=== PATIENT | female | born 1955 | race Caucasian/White ===

== ENCOUNTER 2016-08-12 02:45 | Emergency (ER) | payer MEDICARE ==
[2016-08-12 02:45] VITALS: RESP 18; O2SAT 98
[~2016-08-12 02:45] MED LIST: EXCETAB PO; PROC10TA4 PO; SLEETAB2
[2016-08-12 03:01] VITALS: BP 188/93; PULSE 73; RESP 18; TEMP 97.9; O2SAT 98
[2016-08-12] MEDS ORDERED: SODIUM CHLOR 0.9% 1000 ML INJ 1,000 ML IV SCH (03:24)
[2016-08-12] MEDS ORDERED: KETOROLAC TROMETHAMINE 30 MG/ML (IVP) VIAL IV PUSH ONE (03:30)
[2016-08-12] MEDS ORDERED: SODIUM CHLORIDE 0.9% FLUSH 10 ML FLUSH IV FLUSH PRN (03:30)
[2016-08-12] MEDS ORDERED: ONDANSETRON HCL 4 MG/2 ML VIAL IVP ONE (03:30)
[2016-08-12] MEDS ORDERED: HYDROmorphone HCL PF 1 MG/ML VIAL IV PUSH ONE (03:30)
--- NOTE | 2016-08-12 03:30 | PD ---
HPI Chief Complaint: Flank/Kidney Pain Time Seen by Provider: 03:24 Travel History International Travel<30 days: No Contact w/Intl Traveler<30days: No Traveled to known affect area: No History of Present Illness HPI 61-year-old female presents to the emergency department by EMS transport from home for evaluation of sudden onset flank pain abdominal pain and left axilla any. Patient states symptoms began just prior to arrival to the emergency department. Patient reports that she has felt well no recent illness no recent fever no recent cough no recent pleuritic pain; has traveled recently from [place]. Patient states that past medical history significant for myeloproliferative disorder treated with bone marrow transplant in 2009 but has had no further treatment takes no medications on a daily basis has had no recent illness. Patient denies CAD hypertension dyslipidemia diabetes tobaccoism or gallbladder disease peptic ulcer disease esophageal spasm kidney stones or other complaints. No recent musculoskeletal injury. Patient rates pain 8/10 in intensity and states she just cannot find a comfortable position. Patient was not administered any medications en route to the hospital by EMS. Patient denies chest pain; patient denies pleuritic chest pain. Has had remote bronchitis. PFSH Past Medical History Narrative Medical Myeloproliferative disorder with bone marrow transplant 2009, bronchitis, migraines, tubal ligation, no tobacco use; nursing notes reviewed Blood Disorders: Yes Cancer: Yes (MYELOFIBROSIS) Chemotherapy: Yes (2009) Diminished Hearing: No Respiratory: Yes (FREQUENT BRONCHITIS) Migraines: Yes Influenza Vaccination: No ?: Not LMP: MENEPAUSAL Menopausal: Yes : 2 Para: 2 Tubal Ligation: Yes Past Surgical History Surgical History: No Previous Surgery Hysterectomy: No Social History Alcohol Use: No Tobacco Use: No Substance Use: No Allergies-Medications (Allergen,Severity, Reaction): Coded Allergies: Codeine (Verified Allergy, Severe, 08/12/16) Reported Meds & Prescriptions Reported Meds & Active Scripts Active Proventil Hfa 6.7 GM Inh (Albuterol Sulfate) 90 Mcg/Act Aer 2 Puff INH Q4-6H PRN Levaquin (Levofloxacin) 500 Mg Tab 500 Mg PO DAILY 7 Days Review of Systems Except as stated in HPI: all other systems reviewed are Neg General / Constitutional: No: Fever, Chills HENT: No: Congestion Cardiovascular: No: Chest Pain or Discomfort Respiratory: Positive: Shortness of Breath Gastrointestinal: Positive: Abdominal Pain, No: Nausea Genitourinary: Positive: Flank Pain Musculoskeletal: No: Myalgias, Arthralgias, Edema Skin: No Rash Neurologic: No: Weakness Psychiatric: No: Anxiety Endocrine: No: Heat Intolerance Hematologic/Lymphatic: No: Easy Bruising Physical Exam Narrative GENERAL: Well-developed well-nourished female in no acute distress no respiratory distress; GCS 15 SKIN: Warm and dry. HEAD: Normocephalic. EYES: No scleral icterus. No injection or drainage. NECK: Supple, trachea midline. No JVD or lymphadenopathy. CARDIOVASCULAR: Regular rate and rhythm without murmurs, gallops, or rubs. RESPIRATORY: Breath sounds equal bilaterally. No accessory muscle use. GASTROINTESTINAL: Abdomen soft, non-tender, nondistended. No palpable pulsatile mass. MUSCULOSKELETAL: No cyanosis, or edema. Radial and dorsalis pedis pulses 2+ to palpation bilaterally BACK: Nontender without obvious deformity. No CVA tenderness. Data Data Last Documented VS Vital Signs Date Time Temp Pulse Resp B/P Pulse Ox O2 Delivery O2 Flow Rate FiO2 08/12/16 07:12 68 16 140/75 98 Room Air 08/12/16 03:01 97.9 Orders Complete Blood Count With Diff (08/12/16 03:24) Comprehensive Metabolic Panel (08/12/16 03:24) Lipase (08/12/16 03:24) Prothrombin Time / Inr (Pt) (08/12/16 03:24) Act Partial Throm Time (Ptt) (08/12/16 03:24) Urinalysis - C+S If Indicated (08/12/16 03:24) Iv Access Insert/Monitor (08/12/16 03:24) Ecg Monitoring (08/12/16 03:24) Oximetry (08/12/16 03:24) Ondansetron Inj (Zofran Inj) (08/12/16 03:30) Sodium Chlor 0.9% 1000 Ml Inj (Ns 1000 M (08/12/16 03:24) Sodium Chloride 0.9% Flush (Ns Flush) (08/12/16 03:30) Electrocardiogram (08/12/16 03:24) Chest, Single Ap (08/12/16 03:24) D-Dimer (08/12/16 03:24) Ketorolac Inj (Toradol Inj) (08/12/16 03:30) Hydromorphone Pf Inj (Dilaudid Pf Inj) (08/12/16 03:30) Troponin I (08/12/16 03:24) Magnesium (Mg) (08/12/16 03:24) Ct Pulmonary Angiogram (08/12/16 ) Iohexol 350 Inj (Omnipaque 350 Inj) (08/12/16 06:01) Blood Culture (08/12/16 06:50) Ceftriaxone Inj (Rocephin Inj) (08/12/16 07:00) Azithromycin Inj (Zithromax Inj) (08/12/16 07:00) Labs Laboratory Tests Test 08/12/16 08/12/16 03:40 04:55 White Blood Count 15.8 TH/MM3 Red Blood Count 5.40 MIL/MM3 Hemoglobin 14.6 GM/DL Hematocrit 44.4 % Mean Corpuscular Volume 82.3 FL Mean Corpuscular Hemoglobin 27.0 PG Mean Corpuscular Hemoglobin 32.8 % Concent Red Cell Distribution Width 13.0 % Platelet Count 288 TH/MM3 Mean Platelet Volume 8.3 FL Neutrophils (%) (Auto) 56.3 % Lymphocytes (%) (Auto) 33.2 % Monocytes (%) (Auto) 7.3 % Eosinophils (%) (Auto) 1.5 % Basophils (%) (Auto) 1.7 % Neutrophils # (Auto) 8.8 TH/MM3 Lymphocytes # (Auto) 5.3 TH/MM3 Monocytes # (Auto) 1.2 TH/MM3 Eosinophils # (Auto) 0.2 TH/MM3 Basophils # (Auto) 0.3 TH/MM3 CBC Comment AUTO DIFF Differential Total Cells 100 Counted Neutrophils % (Manual) 56 % Lymphocytes % 36 % Monocytes % 7 % Eosinophils % 1 % Neutrophils # (Manual) 8.8 TH/MM3 Differential Comment FINAL DIFF MANUAL Platelet Estimate NORMAL Platelet Morphology Comment NORMAL Red Cell Morphology Comment NORMAL Prothrombin Time 10.3 SEC Prothromb Time International 0.9 RATIO Ratio Activated Partial 22.1 SEC Thromboplast Time D-Dimer Quantitative (PE/DVT) 0.53 MG/L FEU Sodium Level 140 MEQ/L Potassium Level 3.8 MEQ/L Chloride Level 104 MEQ/L Carbon Dioxide Level 26.1 MEQ/L Anion Gap 10 MEQ/L Blood Urea Nitrogen 24 MG/DL Creatinine 1.00 MG/DL Estimat Glomerular Filtration 56 ML/MIN Rate Random Glucose 106 MG/DL Calcium Level 9.2 MG/DL Magnesium Level 2.1 MG/DL Total Bilirubin 0.3 MG/DL Aspartate Amino Transf 15 U/L (AST/SGOT) Alanine Aminotransferase 36 U/L (ALT/SGPT) Alkaline Phosphatase 76 U/L Troponin I LESS THAN 0.02 NG/ML Total Protein 7.4 GM/DL Albumin 3.6 GM/DL Lipase 153 U/L Urine Color STRAW Urine Turbidity CLEAR Urine pH 6.0 Urine Specific [place] 1.020 Urine Protein 100 mg/dL Urine Glucose (UA) NEG mg/dL Urine Ketones NEG mg/dL Urine Occult Blood NEG Urine Nitrite NEG Urine Bilirubin NEG Urine Leukocyte Esterase NEG Urine RBC 0-3 /hpf Urine WBC 0-2 /hpf Urine Squamous Epithelial 0-5 /hpf Cells Urine Bacteria NONE /hpf Microscopic Urinalysis Comment CULT NOT INDICATED MDM Medical Decision Making Medical Screen Exam Complete: Yes Emergency Medical Condition: Yes Medical Record Reviewed: Yes Interpretation(s) EKG: Normal sinus rhythm rate [address] elevation or injury pattern change noted nonspecific septal T wave changes Last Impressions Chest X-Ray 08/12/16 0324 Signed Impressions: Service Date/Time: Friday, August 12, 2016 04:00 - CONCLUSION: Abnormal opacity overlying the right midlung zone that is of uncertain etiology but presumably is within the lung. It could represent airspace consolidation or potentially a mass. Consider further characterization with chest CT with IV contrast. Erickson Vuong MD CT Angiography 08/12/16 0000 Signed Impressions: Service Date/Time: Friday, August 12, 2016 05:39 - CONCLUSION: 1. No PE is identified. 2. As demonstrated on the chest x-ray there is a consolidative masslike area in the posterior segment of the right upper lobe. There are enlarged mediastinal lymph nodes present as well that are likely reactive. Differential diagnosis includes malignancy versus infection. Suggest correlation with the clinical history. If there are signs of infection, followup imaging is recommended to confirm resolution. 3. There are 3 small noncalcified pulmonary nodules in the right lower lobe. Suggest attention to these have followup imaging. 4. There is high density stranding surrounding the visualized portions of the pancreatic tail. Suggest correlation for any findings which could indicate acute pancreatitis. This ideally should be further evaluated and characterized with abdomen and pelvis CT with IV contrast. Erickson Vuong MD CBC & BMP Diagram 08/12/16 03:40 Vital Signs Date Time Temp Pulse Resp B/P Pulse Ox O2 Delivery O2 Flow Rate FiO2 08/12/16 07:12 68 16 140/75 98 Room Air 08/12/16 05:50 76 16 159/75 98 Room Air 08/12/16 04:45 62 16 168/78 99 Room Air 08/12/16 04:35 16 08/12/16 04:35 16 08/12/16 03:45 77 18 175/92 98 Room Air 08/12/16 03:13 73 18 08/12/16 03:01 97.9 73 18 188/93 98 08/12/16 02:45 18 98 Room Air Differential Diagnosis Abdominal pain, biliary colic, pancreatitis, renal colic, atypical chest pain, PE, aortic dissection Narrative Course Patient placed on digital solutions architect IV access obtained specimens collected and sent resulting; 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 Patient informed of recommendation for admission for ongoing IV antibiotics and to further assess her pain of presentation along with additional imaging study including CT abdomen and pelvis to further delineate possible stranding that could be concerning for pancreatitis. Patient states she has no pain at this time and states that she cannot be admitted because her is being discharged from [facility] today after suffering a stroke and will not stay in the hospital but will return once he is attended to or will see her PCP. Patient states that she will follow-up with her primary care provider. Patient is aware of the potential seriousness of her abnormal findings by chest x-ray and CT for possible lung mass which would be concerning for lung cancer. Patient has been given IV antibiotics and understands need for ongoing antibiotic therapy. Patient refuses admission at this time. Patient reexamined and physical exam is normal with stable vital signs: Heart rate 72, normal sinus rhythm by digital solutions architect blood pressure 140/75 history rate 20 nonlabored room air O2 saturation 96% pain 0/10. Patient does not meet service or sepsis criteria and at this time. Sepsis Criteria SIRS Criteria (2 or more): WBC > 25947, < 4000 or > 10% bands Diagnosis Primary Impression: Pneumonia Qualified Code: J18.1 - Pneumonia of right lower lobe due to infectious organism Additional Impression: Lung mass Referrals: Primary Care Physician 2 days Patient Instructions: General Instructions Additional Instructions: Increase fluid hydration Follow-up with primary care provider on Sunday Return to the emergency department for any concerns Monitor temperature every 4 hours with thermometer take acetaminophen as needed for fever 100.4F or greater Use inhaler as prescribed as needed for wheezing or shortness of breath Complete course of antibiotic as prescribed Med/Other Pt SpecificInfo: Prescription(s) given Scripts Albuterol 6.7 GM Inh (Proventil Hfa 6.7 GM Inh)90 Mcg/Act Aer2 Puff INH Q4-6H PRN (SHORTNESS OF BREATH) #1 INHALER Ref 0 Prov:Marie Peterson MD 08/12/16 Levofloxacin (Levaquin)500 Mg [id number] Mg PO DAILY 7 Days Ref 0 Prov:Marie Peterson MD 08/12/16 Disposition: 01 DISCHARGE HOME Marie Peterson MD Aug 12, 2016 03:30
[2016-08-12 03:45] VITALS: BP 175/92; PULSE 77; RESP 18; O2SAT 98
[2016-08-12 03:52] LABS: AUTOMATED NEUTROPHIL # 8.8 TH/MM3 (1.8-7.7); BASOPHIL # 0.3 TH/MM3 (0-0.2); BASOPHIL % 1.7 % (0.0-2.0); EOSINOPHIL # 0.2 TH/MM3 (0-0.4); EOSINOPHIL % 1.5 % (0.0-4.0); HEMATOCRIT 44.4 % (35.0-46.0); LYMPH % 33.2 % (9.0-44.0); LYMPHOCYTE # 5.3 TH/MM3 (1.0-4.8); MEAN CELL VOLUME 82.3 FL (80.0-100.0); MEAN CORPUSCULAR HGB CONC 32.8 % (32.0-36.0); MONO % 7.3 % (0.0-8.0); NEUT % 56.3 % (16.0-70.0); PLATELET COUNT 288 TH/MM3 (150-450); WHITE BLOOD COUNT 15.8 TH/MM3 (4.0-11.0)
[2016-08-12 03:53] LABS: HEMO FLAGS AUTO DIFF
[2016-08-12 03:59] LABS: CHLORIDE 104 MEQ/L (98-107); POTASSIUM 3.8 MEQ/L (3.5-5.1); SODIUM (NA) 140 MEQ/L (136-145)
[2016-08-12 04:03] LABS: ANION GAP 10 MEQ/L (5-15); BICARBONATE 26.1 MEQ/L (21.0-32.0); BLOOD UREA NITROGEN 24 MG/DL (7-18); MAGNESIUM 2.1 MG/DL (1.5-2.5)
[2016-08-12 04:05] LABS: ALT (GPT) 36 U/L (10-53)
[2016-08-12 04:06] LABS: APTT (PATIENT) 22.1 SEC (24.3-30.1); AST (GOT) 15 U/L (15-37); GLOMERULAR FILTRATION RATE 56 ML/MIN (>89); INTERNATIONAL NORMALIZED RATIO 0.9 RATIO; PROTHROMBIN TIME - PATIENT 10.3 SEC (9.8-11.6)
[2016-08-12 04:07] LABS: TOTAL BILIRUBIN ADULT 0.3 MG/DL (0.2-1.0)
[2016-08-12 04:08] LABS: ALKALINE PHOSPHATASE 76 U/L (45-117)
[2016-08-12 04:12] LABS: EOSINOPHILS 1 % (0-4); NEUTROPHIL # MANUAL DIFF 8.8 TH/MM3 (1.8-7.7); PLATELET ESTIMATE SMEAR NORMAL (NORMAL); PLATELET MORPHOLOGY NORMAL (NORMAL); POLYS (SEG NEUTROPHILS) 56 % (16-70); SCAN/DIFF FINAL DIFF MANUAL; WBC DIFF SAMPLE 100
--- NOTE | 2016-08-12 04:15 | RADHPO ---
EXAM DATE/TIME: 08/12/2016 04:00 [facility] COMPARISON: No previous studies available for comparison. INDICATIONS : Chest pain. MEDICAL HISTORY : None. SURGICAL HISTORY : None. ENCOUNTER: Initial ACUITY: 1 day PAIN SCORE: 5/10 LOCATION: Bilateral chest FINDINGS: Portable AP view of the chest demonstrates a normal-sized cardiac silhouette. There is some type of o pacity overlying the right midlung zone. No pleural effusion or pneumothorax is identified. There are calcified left hilar lymph nodes with calcified granuloma in the left midlung zone. The bones and so ft tissues demonstrate no acute finding. CONCLUSION: Abnormal opacity overlying the right midlung zone that is of uncertain etiology but presumably is wit hin the lung. It could represent airspace consolidation or potentially a mass. Consider further esther cterization with chest CT with IV contrast. Erickson Vuong MD on August 12, 2016 at 4:12 Board Certified Radiologist. This report was verified electronically.
[2016-08-12 04:45] VITALS: BP 168/78; PULSE 62; RESP 16; O2SAT 99
[2016-08-12 05:04] LABS: BLOOD, URINE NEG (NEG); GLUCOSE,URINE NEG (NEG); KETONE, URINE NEG (NEG); NITRITE,URINE NEG (NEG)
[2016-08-12 05:07] LABS: URINE COLOR STRAW (YELLW/STRAW)
[2016-08-12 05:08] LABS: COMMENT (UR) CULT NOT INDICATED; CULTURE IF INDICATED CULT NOT INDICATED; RBC, URINE 0-3 /hpf (0-3); SQUAMOUS EPITHELIAL CELL URINE 0-5 /hpf (0-5); WBC, URINE 0-2 /hpf (0-5)
[2016-08-12 05:50] VITALS: BP 159/75; PULSE 76; RESP 16; O2SAT 98
[2016-08-12] MEDS ORDERED: IOHEXOL 350 MG/ML 10 ML VIAL (for RAD DIAG) IV ONE (06:01)
--- NOTE | 2016-08-12 06:24 | RADHPO ---
EXAM DATE/TIME: 08/12/2016 05:39 [facility] COMPARISON: No previous studies available for comparison. INDICATIONS : Abnormal chest x-ray. Elevated D-dimer. IV CONTRAST: 80 cc Omnipaque 350 (iohexol) IV RADIATION DOSE: 10.44 CTDIvol (mGy) MEDICAL HISTORY : Myelofibrosis. SURGICAL HISTORY : Bone marrow transplant. ENCOUNTER: Initial ACUITY: 1 day PAIN SCALE: 0/10 LOCATION: chest TECHNIQUE: Volumetric scanning of the chest was performed using a pulmonary embolism protocol MIP images were re constructed. Using automated exposure control and adjustment of the mA and/or kV according to patien t size, radiation dose was kept as low as reasonably achievable to obtain optimal diagnostic quality images. FINDINGS: PULMONARY ARTERIES: No filling defects are seen in the pulmonary arteries through the segmental level. LUNGS: There is dense airspace consolidation in the right upper lobe in the posterior segment. In the right lower lobe there are at least 3 small noncalcified pulmonary nodules measuring 3 mm. Calcified granul wolfgang is present in the left lower lobe. There is mild centrilobular emphysema. PLEURAE: There is no pleural thickening or pleural effusion. MEDIASTINUM: The heart and great vessels demonstrate no acute finding. There is lymphadenopathy within the middle mediastinum and likely in the right hilum. A subcarinal lymph node is enlarged measuring 16 mm in oli rt axis diameter and there is an enlarged right paratracheal lymph node measuring 14 mm in short axis diameter. There are calcified left hilar lymph nodes. MUSCULOSKELETAL: No acute osseous abnormality is visualized. MISCELLANEOUS: There is high density stranding surrounding the visualized portions of the pancreatic tail. CONCLUSION: 1. No PE is identified. 2. As demonstrated on the chest x-ray there is a consolidative masslike area in the posterior segment of the right upper lobe. There are enlarged mediastinal lymph nodes present as well that are likely reactive. Differential diagnosis includes malignancy versus infection. Suggest correlation with the c linical history. If there are signs of infection, followup imaging is recommended to confirm resoluti on. 3. There are 3 small noncalcified pulmonary nodules in the right lower lobe. Suggest attention to the se have followup imaging. 4. There is high density stranding surrounding the visualized portions of the pancreatic tail. Sugges t correlation for any findings which could indicate acute pancreatitis. This ideally should be furthe r evaluated and characterized with abdomen and pelvis CT with IV contrast. Erickson Vuong MD on August 12, 2016 at 6:15 Board Certified Radiologist. This report was verified electronically.
[2016-08-12] MEDS ORDERED: AZITHROMYCIN INJ 500 MG in SODIUM CHLOR 0.9% 250 ML INJ 250 ML IV ONE (07:00)
[2016-08-12] MEDS ORDERED: cefTRIAXone INJ 1,000 MG in SODIUM CHLORIDE 0.9% INJ 100 ML IV ONE (07:00)
[2016-08-12 07:12] VITALS: BP 140/75; PULSE 68; RESP 16; O2SAT 98
[2016-08-12] MEDS ORDERED: LEVA500T PO (07:28)
[2016-08-12] MEDS ORDERED: ALBU6.7H INH (07:28)
--- NOTE | 2016-08-13 21:10 | EKG ---
Date Performed: 08/12/2016 Time Performed: 03:51:54 PTAGE: 61 years EKG: Sinus rhythm . Short DE interval Possible left atrial abnormality Septal T wave changes are nonspecific Borderline ECG NO PREVIOUS TRACING DOCTOR: Dayne Canada Interpretating Date/Time 08/13/2016 21:08:48
== END 2016-08-12 09:22 | disposition home or self-care (01) ==
LOC: PHED 02:45
DX: J18.1 Lobar pneumonia, unspecified organism (principal); R91.8 Other nonspecific abnormal finding of lung field; Z85.6 Personal history of leukemia; Z94.81 Bone marrow transplant status; Z88.5 Allergy status to narcotic agent
CPT/HCPCS: 71010; 71275; 80053; 81001; 83690; 83735; 84484; 85007; 85027; 85379; 85610; 85730; 87040; 93005; 96361; 96365; 96367; 96374; 96375; 99285; J0456; J0696; J1170; J1885; J2405; J7030; J7050; Q9967

== ENCOUNTER 2016-09-27 09:31 | Day surgery (SDC) | payer MEDICARE ==
[~2016-09-27] VITALS: Ht 177.8 cm; Wt 72.7 kg
[2016-09-27] VITALS (8 sets, daily range): BP systolic 128–153; BP diastolic 70–80; PULSE 74–84; RESP 16–20; TEMP 96.4–97.7; O2SAT 93–98
--- NOTE | 2016-09-27 00:11 | MB ---
cc: DORY KEITH MD, ARJUN DATE OF CONSULTATION: 09/26/2016 DATE OF : 53 CHIEF COMPLAINT: The patient will come for mesenteric arteriogram and possible intervention. HISTORY OF PRESENT ILLNESS Ms. Hilton is a 61-year-old female with chronic bronchitis. She was in [place]. She had a lung density with calcified granuloma. She was sent for CT scan of the chest at [facility], which shows she has a right perihilar mass measuring 6.2 x 4.8 cm. It has increased from the previous dimensions. She also has reticular infiltrate, enlarging pretracheal precarinal right hilar and subcarinal lymph node, concerning for malignancy. She also has granulomatous changes in the left hilum. 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 She has no abdominal pain. No bleeding from any site. PAST MEDICAL HISTORY: 1. Chronic bronchitis. 2. Myelodysplastic syndrome. 3. Bone marrow transplant done in 2008. 4. 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 5. She also has . MEDICATIONS: 1. Protonix 2. Proair. SOCIAL HISTORY: She has a history of smoking for 30 years, [id number]-half packs per day which she quit in 2008. No alcohol or drug abuse. She is retired from [employer]. FAMILY HISTORY: She is for 36 years. She has three children. She has two, the other one with cancer of the lung. She has two sisters, one with cancer of the lung. Mother with carcinoma, father with cancer of the lung. REVIEW OF SYSTEMS She denies any weight loss. No fever or chills, no night sweats. No hemoptysis. No DVT or pulmonary embolism. PHYSICAL EXAMINATION The patient is a well built, well-nourished female, not in any acute distress. VITAL SIGNS: Blood pressure is 122/64, heart rate 92, respiratory rate 16, oxygen saturation 95%. HEENT: Unremarkable. NECK: Supple. JVP not raised. CHEST: Equal bilaterally. No rhonchi. CARDIOVASCULAR: S1, S2 normal. ABDOMEN: Benign. EXTREMITIES: No edema. 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 Enlarging right hilar mass. Precarinal and mediastinal lymph node concerning for metastatic disease. Granulomatous disease in the lung. Myelodysplastic syndrome, status post bone marrow transplant. PLAN: I discussed with the patient. I discussed with Dr. Camara. The patient will need mesenteric artery arteriogram and possible intervention for celiac artery stent. She will go to [facility] tomorrow at 9:30 on 09/27/2016. The patient will also need a CT guided lung biopsy which will be scheduled at [facility]. Will follow up in three months. Francisco Javier Galvan MD ADA/WENDI /11:36 PM /11:52 PM MTDLorrie
[~2016-09-27 09:31] MED LIST changes: +ALBU6.7H INH; -EXCETAB PO; +LEVA500T PO; -PROC10TA4 PO; -SLEETAB2
[2016-09-27] MEDS: SODIUM CHLOR 0.9% 1000 ML INJ 1,000 ML IV SCH ×2 (10:30→20:30)
[2016-09-27 11:39] LABS: AUTOMATED NEUTROPHIL # 4.5 TH/MM3 (1.8-7.7); BASOPHIL # 0.1 TH/MM3 (0-0.2); BASOPHIL % 0.6 % (0.0-2.0); EOSINOPHIL # 0.4 TH/MM3 (0-0.4); EOSINOPHIL % 4.9 % (0.0-4.0); HEMATOCRIT 42.7 % (35.0-46.0); HEMO FLAGS DIFF FINAL; LYMPH % 33.8 % (9.0-44.0); LYMPHOCYTE # 2.9 TH/MM3 (1.0-4.8); MEAN CELL VOLUME 80.6 FL (80.0-100.0); MEAN CORPUSCULAR HGB CONC 33.5 % (32.0-36.0); MONO % 7.9 % (0.0-8.0); NEUT % 52.8 % (16.0-70.0); PLATELET COUNT 256 TH/MM3 (150-450); WHITE BLOOD COUNT 8.5 TH/MM3 (4.0-11.0)
[2016-09-27 11:47] LABS: APTT (PATIENT) 27.2 SEC (24.3-30.1); PROTHROMBIN TIME - PATIENT 10.7 SEC (9.8-11.6)
[2016-09-27] MEDS ORDERED: fentaNYL CITRATE 250 MCG/5 ML AMP ONE ×2 (15:04→15:38)
[2016-09-27] MEDS ORDERED: MIDAZOLAM HCL 5 MG/5 ML VIAL ONE ×2 (15:04→15:38)
[2016-09-27] MEDS ORDERED: ceFAZolin 2 GM PREMIX 50 ML ONE (16:06)
[2016-09-27] MEDS ORDERED: IODIXANOL 320 MG/ML 50 ML VIAL (for RAD SPEC) ONE (17:00)
[2016-09-27] MEDS ORDERED: HEPARIN SODIUM - IV 10,000 UNITS/10 ML VIAL ONE (17:09)
--- NOTE | 2016-09-27 17:27 | PD.RAD ---
Post Procedure Progress Note Pre Procedure Diagnosis: (1) Splenic artery aneurysm Post Procedure Diagnosis: (1) Splenic artery aneurysm Procedure Date: September 27, 2016 Supervising Radiologist: Jan Jerez JR Proceduralist/Assist: Esther Adams RT(R), Ronna Kahn RT(R)(CV) Anesthesia: Conscious Sedation Plan of Activity Patient to Unit: ROPU Patient Condition: Good See PACS Report for procedural detail/treatment Vascular-Arterial Procedure Procedure 1 Procedure Site: Celiac Procedure(s): Stent Placement Access Access Site(s): Right Femoral Artery Closure Site(s): Right vascular closure device Findings: Celiac angiography shows 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 Small saccular aneurysm of splenic artery at splenic hilum. Successful stenting of stenosis and covered stent placement of pseudoaneurysm. Angioseal at groin. Plan F/U with IR in 1 week. CTA surveillance of peripheral splenic artery aneurysm thru primary care physician. Suggest F/U at 6 mos, 12, 24 months Jr. Solitario,Jan Jacobsen MD September 27, 2016 17:27
--- NOTE | 2016-09-28 09:27 | RADRPT ---
EXAM DATE/TIME: 09/27/2016 16:00 [facility] COMPARISON: No previous studies available for comparison. 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 Patient in need of angiogram with intervention. MEDICAL HISTORY : Chronic Bronchitis Myelodysplastic syndrome Thyroid disease [id number] disease in eye and skin lesion SURGICAL HISTORY : Bone marrow transplant done 2009 Tubal ligation ENCOUNTER: Initial ACUITY: 2 days PAIN SCORE: 0/10 FLUORO TIME: 22.4 minutes IMAGE SERIES: 23 ACCESS SITE: Right Femoral artery SEDATION TIME: 105 minutes CONTRAST: 1.) 140 cc Visipaque (iodixanol) MEDICATION(S): 1.) 10 mg midazolam (Versed) IV 2.) 450 mcg fentanyl (Sublimaze) IV DEVICE(S): 1.) celiac artery Drag Out [employer]PAIRER TYPEWRITER balloon 4.0mm X 20mm 2.) celiac artery Visi-Pro stent (balloon expanding) 7mm X 12mm 3.) celiac artery Atrium stent (ballooon expanding) 6mm X 59mm 4.) celiac artery Drag Out Worker REPAIRER TYPEWRITER balloon 6.0mm X 20mm 5.) common femoral artery 6 FR Angio-Seal PROCEDURE : 1. Ultrasound-guided puncture of the access site. 2. Angiography of the access site prior to closure device. 3. Conscious sedation with continuous EKG and Oximetry monitoring. 4. Percutaneous closure of the access site. 5. Angiography of the splenic artery 6. Angioplasty of the celiac axis origin 7. stenting of the celiac axis origin 8. Covered stent placement of the splenic artery The risks, benefits and alternatives to the procedure were explained and verbal and written consent w as obtained. The site was prepped in sterile fashion. Full sterile technique was used, including ca p, mask, sterile gloves and gown and a large sterile sheet. Hand hygiene and 2% chlorhexidine and/or betadine/alcohol prep was utilized per protocol for cutaneous antisepsis. The skin and subcutaneous tissues were infiltrated with local anesthetic solution. With ultrasound and fluoroscopic guidance the right common femoral artery was punctured and a vascula r sheath was placed. Angiography of the common femoral artery was performed for evaluation prior to percutaneous closure device placement. 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 The left gastric ar caio arises off the celiac. The common hepatic artery and associated branches arise from the SMA. Cov ered stent placement of the pseudoaneurysm is needed. The high-grade stenosis of the celiac origin is occlusive with a simple wire across the lesion. This will require definitive therapy prior to treatm ent of the pseudoaneurysm. The stenosis is so great that a stent would not cross the lesion. A 4 mm x 20 mm balloon was utilized for angioplasty 2 allow placement of the stent. A 6 [place] Ramez 2 sheath was positioned with the tip at the origin. This was passed across the newly ballooned stenosis. Thro [facility] this sheath a 7 x 12 balloon expandable stent was passed and the sheath pulled back. The stent wa s deployed in the stenotic origin of the celiac. Followup angiogram shows resolution of the stenosis with good antegrade flow through the celiac and splenic artery. The pseudoaneurysm can now be address ed. The left gastric artery is arising off the proximal celiac and crossing of this vessel with the s tent will be needed to treat the pseudoaneurysm. There should be sufficient collateralization to the stomach where this will not causing tissue. A 6 mm x 59 mm atrium stent was the most appropriate size d stent I had available. This was passed through the previously placed stent at the origin and deploy ed within the splenic artery. A followup angiogram shows widely patent celiac origin with good flow t hrough the splenic artery. The pseudoaneurysm has been omitted from the flow. The left gastric is no longer filling. The peripheral splenic artery shows a tiny saccular style aneurysm arising from the r egion of the splenic hilum. This measures approximately 5 mm in size. A tensor made to gain access to the more peripheral splenic artery but these were unsuccessful. I did not want to risk of damage to the newly placed stents by placing a sheath within. This small aneurysm can be followed with CTA. Hemostasis was obtained with the prescribed medicated closure device. Conscious sedation was perform ed with the prescribed dosages and duration as above in the presence of an independent trained radiol ogy nurse to assist in the monitoring of the patient. EKG and oximetry remained stable throughout procedure. CONCLUSION: 1. 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 2. 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 This necessit ated crossing of the left gastric artery which should not cause an issue as the stomach has significa nt collateralization. 3. 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 This can be followed with CTA. I would suggest a followup CTA of the abdomen in 6 months. Jan Jerez Jr., MD on September 28, 2016 at 8:00 Board Certified Radiologist. This report was verified electronically.
== END 2016-09-27 21:45 | disposition home or self-care (01) ==
LOC: HROP 09:31 → HRIP 09:33 → N05B 19:10 → HROP 21:45
PROVIDERS: ATTEND Specialist
DX: I72.8 Aneurysm of other specified arteries (principal); I77.4 Celiac artery compression syndrome; D46.9 Myelodysplastic syndrome, unspecified; R91.8 Other nonspecific abnormal finding of lung field; E07.9 Disorder of thyroid, unspecified; J42 Unspecified chronic bronchitis; Z94.81 Bone marrow transplant status; Z87.891 Personal history of nicotine dependence; Z01.818 Encounter for other preprocedural examination
CPT/HCPCS: 36246; 37236; 37237; 75726; 76937; 85025; 85610; 85730; 99152; 99153; C1725; C1760; C1769; C1876; C1887; C1894; J0690; J1644; J2250; J3010; J7030; Q9967; 37246

== ENCOUNTER 2016-10-02 10:02 | Day surgery (SDC) | payer MEDICARE ==
[2016-10-02 10:34] VITALS: BP 147/86; PULSE 87; RESP 20; TEMP 97.9; O2SAT 95
[2016-10-02] MEDS ORDERED: IOHEXOL 350 MG/ML 10 ML VIAL (for RAD DIAG) IV ONE (12:53)
[2016-10-02 13:00] VITALS: BP 153/74; PULSE 78; RESP 20; TEMP 98; O2SAT 95
--- NOTE | 2016-10-02 16:03 | RADRPT ---
EXAM DATE/TIME: 10/02/2016 12:40 [facility] COMPARISON: CT PULMONARY ANGIOGRAM, August 12, 2016, 5:39. INDICATIONS : Evaluate stent placement SMA. IV CONTRAST: 93 cc Omnipaque 350 (iohexol) IV ORAL CONTRAST: No oral contrast ingested. RADIATION DOSE: 9.96 CTDIvol (mGy) MEDICAL HISTORY : bone marrow transplant,myelofibrosis SURGICAL HISTORY : None. ENCOUNTER: Initial ACUITY: 4 - 6 days PAIN SCALE: 6/10 LOCATION: Bilateral lower quadrant TECHNIQUE: Volumetric scanning of the abdomen and pelvis was performed. Using automated exposure control and ad justment of the mA and/or kV according to patient size, radiation dose was kept as low as reasonably achievable to obtain optimal diagnostic quality images. FINDINGS: LOWER LUNGS: Small nodular densities are again seen in the right lung base. This is associated with a large right perihilar mass lesion/consolidation of the prior CTA. LIVER: Homogeneous density without lesion. There is no dilation of the biliary tree. No calcified gallston es. SPLEEN: Multiple low density lesions suggesting cysts or hemangiomas. Granulomatous type calcifications. PANCREAS: Within normal limits. Peripancreatic fluid and stranding identified on the prior exam has resolved. KIDNEYS: Normal in size and shape. There is no mass, stone or hydronephrosis. Small renal cortical cysts on t he left. ADRENAL GLANDS: Within normal limits. VASCULAR: A celiac artery aneurysm has been effectively treated with a covered stent. The aneurysm is now throm bosed. The SMA and renal arteries remain patent. No aneurysmal disease of the abdominal aorta. BOWEL/MESENTERY: The stomach, small bowel, and colon demonstrate no acute abnormality. There is no free intraperitone al air or fluid. ABDOMINAL WALL: Within normal limits. RETROPERITONEUM: There is no lymphadenopathy. BLADDER: No wall thickening or mass. REPRODUCTIVE: Varicosities associated left gonadal vein. Otherwise intact. INGUINAL: There is no lymphadenopathy or hernia. MUSCULOSKELETAL: Within normal limits for patient age. CONCLUSION: 1. Excellent position of the covered stent which effectively treated the previously identified saccul ar pseudoaneurysm of the celiac artery. No new aneurysms identified. 2. Fluid and stranding about the pancreas on prior study has resolved. Findings are characteristic of a transient pancreatitis. No acute intraperitoneal or pelvic process to explain current clinical sym ptoms. 3. Small nodular densities in the right base are again identified. This is associated with a right pe rihilar mass/consolidation seen on the previous pulmonary CTA. Eren Seay MD on October 02, 2016 at 13:33 Board Certified Radiologist. This report was verified electronically.
== END 2016-10-02 14:00 | disposition home or self-care (01) ==
LOC: HROP 10:02 → HRIP 10:04 → HROP 14:00
PROVIDERS: ATTEND Radiology Body Imaging
DX: I77.4 Celiac artery compression syndrome (principal); K85.90 Acute pancreatitis without necrosis or infection, unspecified
CPT/HCPCS: 74177; G0463; Q9967; 99213

== ENCOUNTER 2016-10-10 11:54 | Inpatient (IN) | payer MEDICARE ==
[~2016-10-10] VITALS: Ht 177.8 cm; Wt 75.0 kg
[2016-10-10 11:57] VITALS: BP 140/109; PULSE 126; RESP 18; TEMP 98.7; O2SAT 97
[2016-10-10 12:45] LABS: AUTOMATED NEUTROPHIL # 8.1 TH/MM3 (1.8-7.7); BASOPHIL % 0.2 % (0.0-2.0); EOSINOPHIL # 0.2 TH/MM3 (0-0.4); EOSINOPHIL % 2.1 % (0.0-4.0); HEMATOCRIT 40.1 % (35.0-46.0); HEMO FLAGS DIFF FINAL; LYMPH % 18.8 % (9.0-44.0); LYMPHOCYTE # 2.1 TH/MM3 (1.0-4.8); MEAN CELL VOLUME 80.2 FL (80.0-100.0); MEAN CORPUSCULAR HEMOGLOBIN 26.4 PG (27.0-34.0); MEAN CORPUSCULAR HGB CONC 32.9 % (32.0-36.0); MONO % 4.3 % (0.0-8.0); NEUT % 74.6 % (16.0-70.0); PLATELET COUNT 348 TH/MM3 (150-450); RED CELL DISTRIBUTION WIDTH 12.9 % (11.6-17.2); WHITE BLOOD COUNT 10.9 TH/MM3 (4.0-11.0)
[2016-10-10 12:46] LABS: BLOOD, URINE NEG (NEG); GLUCOSE,URINE NEG (NEG); KETONE, URINE TRACE mg/dL (NEG); NITRITE,URINE NEG (NEG); PH, URINE 5.5 (5.0-8.5)
[2016-10-10 12:55] LABS: BICARBONATE 22.8 MEQ/L (21.0-32.0)
[2016-10-10 12:56] LABS: COMMENT (UR) CULT NOT INDICATED; CULTURE IF INDICATED CULT NOT INDICATED; METHOD OF COLLECTION CLEAN CATCH; RBC, URINE 0-3 /hpf (0-3); SQUAMOUS EPITHELIAL CELL URINE 0-5 /hpf (0-5); URINE COLOR YELLOW (YELLW/STRAW); WBC, URINE 0-2 /hpf (0-5)
[2016-10-10 12:57] LABS: COMMENT2 (UR) MUCOUS PRESENT
[2016-10-10 13:42] VITALS: BP 116/56; PULSE 78; RESP 18; O2SAT 97
[2016-10-10] MEDS ORDERED: ONDANSETRON HCL 4 MG/2 ML VIAL IV PUSH ONE (13:45)
[2016-10-10] MEDS ORDERED: MORPHINE SULFATE 4 MG/ML INJ IV PUSH ONE (13:45)
[2016-10-10] MEDS ORDERED: IOHEXOL 350 MG/ML 10 ML VIAL (for RAD DIAG) IV ONE (13:56)
--- NOTE | 2016-10-10 14:14 | RADHPO ---
EXAM DATE/TIME: 10/10/2016 13:24 This report includes an Addendum and supersedes previous reports for this exam. [facility] COMPARISON: CT ABDOMEN & PELVIS W CONTRAST, October 02, 2016, 12:40. INDICATIONS : Right inguinal pain since recent abdominal stent. IV CONTRAST: 70 cc Omnipaque 350 (iohexol) IV ORAL CONTRAST: No oral contrast ingested. RADIATION DOSE: 10.45 CTDIvol (mGy) MEDICAL HISTORY : Gastroesophageal reflux disease. SURGICAL HISTORY : Tubal ligation. recent abdominal (pancreas) stent put in two weeks ago ENCOUNTER: Initial ACUITY: 2 weeks PAIN SCALE: 5/10 LOCATION: Right inguinal TECHNIQUE: Volumetric scanning of the abdomen and pelvis was performed. Using automated exposure control and ad justment of the mA and/or kV according to patient size, radiation dose was kept as low as reasonably achievable to obtain optimal diagnostic quality images. FINDINGS: LOWER LUNGS: Multiple stable nodular densities in the right lung base. Otherwise lung bases are stable and unchang ed. LIVER: Homogeneous density without lesion. There is no dilation of the biliary tree. No calcified gallston es. SPLEEN: Normal size without lesion. PANCREAS: Within normal limits. KIDNEYS: Normal in size and shape. There is no mass, stone or hydronephrosis. ADRENAL GLANDS: Within normal limits. VASCULAR: Status post placement of a covered stent in the celiac artery to repair a saccular aneurysm. There's been no change in the appearance stent or its surrounding soft tissue. These findings are stable comp ared to the prior exam. BOWEL/MESENTERY: The stomach, small bowel, and colon demonstrate no acute abnormality. There is no free intraperitone al air or fluid. ABDOMINAL WALL: Within normal limits. RETROPERITONEUM: There is no lymphadenopathy. BLADDER: Decompressed REPRODUCTIVE: Within normal limits. INGUINAL: There appears to be diffuse nonspecific edema and/or inflammatory changes in the subcutaneous soft ti ssues in the region of the right inguinal area. This is the location of the recent catheterization. T here is a small 1.2 cm fluid collection chest inside the peritoneal cavity adjacent to the anterior r ight iliac wing. A no free fluid is seen in the pelvis. MUSCULOSKELETAL: Within normal limits for patient age. CONCLUSION: 1. There is nonspecific edema and/or inflammatory changes in the subcutaneous soft tissues in the rig ht inguinal area. 2. There is a small 1.2 cm fluid collection just inside the peritoneal cavity adjacent to the anterio r right iliac wing. This could be a small hematoma versus inflammatory process/small abscess. This fi nding needs to be correlated with patient's physical exam, clinical history and laboratory values suc h as patient's white count. 3. Several stable nonspecific pulmonary nodules are again demonstrated in the right lung base. Toby Bateman MD on October 10, 2016 at 14:01 Board Certified Radiologist. This report was verified electronically. ADDENDUM: The above was reviewed. I have the technologist performed thin section and multiplanar reconstruction s to evaluate the right external iliac at the junction of the common femoral. There is irregularity o f the vessel at this level with suggestion of a small, 6 mm wide neck pseudoaneurysm. This is positio paz at the level of the inguinal ligament. The wide neck I believe precludes percutaneous thrombin em bolization and I believe the lesion is too low for a covered stent. Discussed the case with Dr. Ruiz navarro from vascular surgery. We feel the most prudent approach is surgical repair at this juncture. Eren Seay MD on October 10, 2016 at 18:43 Board Certified Radiologist. This report was verified electronically.
[2016-10-10 14:57] LABS: APTT (PATIENT) 33.4 SEC (24.3-30.1); PROTHROMBIN TIME - PATIENT 11.1 SEC (9.8-11.6)
[2016-10-10] MEDS ORDERED: CLINDAMYCIN INJ 600 MG in SODIUM CHLORIDE 0.9% INJ 100 ML IV ONE (15:00)
--- NOTE | 2016-10-10 15:31 | PD ---
HPI Chief Complaint: Pain: Acute or Chronic Time Seen by Provider: 12:36 Travel History International Travel<30 days: No Contact w/Intl Traveler<30days: No Traveled to known affect area: No History of Present Illness HPI Patient is a 61-year-old female who comes in complaining of pain and swelling around the site where she had a procedure performed about 2 weeks ago. She had stenting of her celiac artery for pseudoaneurysm. About a week ago, she was seen and had a CAT scan performed that showed no acute abnormalities and the stent to be in place. She says that the pain seems to be getting worse and she feels something leaking from the site. She denies any fever or chills. She denies any chest pain or shortness of breath. PFSH Past Medical History Blood Disorders: Yes Cancer: Yes (MYELOFIBROSIS) Cardiovascular Problems: No Chemotherapy: Yes (2009) Diabetes: No Diminished Hearing: No Endocrine: No GERD: Yes Genitourinary: No Hepatitis: No Hiatal Hernia: No Immune Disorder: No Musculoskeletal: No Neurologic: No Psychiatric: No Reproductive: No Respiratory: Yes (FREQUENT BRONCHITIS/ INTUBATED FOLLOWING TRANSPLANT) Migraines: Yes Thyroid Disease: Yes Influenza Vaccination: No ?: Not Menopausal: Yes : 2 Para: 2 Tubal Ligation: Yes Past Surgical History Hysterectomy: No Other Surgery: Yes (stent) Social History Alcohol Use: Yes () Tobacco Use: No (QUIT 2009) Substance Use: No Allergies-Medications (Allergen,Severity, Reaction): Coded Allergies: Codeine (Verified Allergy, Severe, 10/10/16) Reported Meds & Prescriptions Reported Meds & Active Scripts Active No Active Prescriptions or Reported Medications Review of Systems Except as stated in HPI: all other systems reviewed are Neg General / Constitutional: No: Fever, Chills HENT: No: Headaches, Lightheadedness Cardiovascular: No: Chest Pain or Discomfort Respiratory: No: Shortness of Breath Gastrointestinal: Positive: Abdominal Pain, No: Nausea, Vomiting Genitourinary: No: Dysuria Musculoskeletal: No: Edema Skin: Positive Change in Pigmentation Neurologic: No: Weakness, Dizziness Physical Exam Narrative GENERAL: Awake and alert, in no acute distress. SKIN: Focused skin assessment warm/dry. Erythema and warmth, about 5 cm in area , around the surgical site. No active drainage currently. HEAD: Atraumatic. Normocephalic. EYES: Pupils equal and round. No scleral icterus. ENT: Mucous membranes pink and moist. NECK: Trachea midline. No JVD. CARDIOVASCULAR: Regular rate and rhythm. No murmur appreciated. RESPIRATORY: No accessory muscle use. Clear to auscultation. Breath sounds equal bilaterally. GASTROINTESTINAL: Abdomen soft, nondistended. Tender to palpation of right lower quadrant where she had the procedure performed. No rebound or guarding. MUSCULOSKELETAL: No obvious deformities. No clubbing. No cyanosis. No edema. NEUROLOGICAL: Awake and alert. No obvious cranial nerve deficits. Motor grossly within normal limits. Normal speech. PSYCHIATRIC: Appropriate mood and affect; insight and judgment normal. Data Data Last Documented VS Vital Signs Date Time Temp Pulse Resp B/P Pulse Ox O2 Delivery O2 Flow Rate FiO2 10/10/16 16:03 99 18 113/62 98 Room Air 10/10/16 11:57 98.7 Orders Complete Blood Count With Diff (10/10/16 12:18) Urinalysis - C+S If Indicated (10/10/16 12:18) Iv Access Insert/Monitor (10/10/16 12:18) Oxygen Administration (10/10/16 12:18) Oximetry (10/10/16 12:18) Basic Metabolic Panel (Bmp) (10/10/16 12:18) Act Partial Throm Time (Ptt) (10/10/16 12:50) Prothrombin Time / Inr (Pt) (10/10/16 12:50) Ct Abd/Pel W Iv Contrast(Rout) (10/10/16 ) Morphine Inj (Morphine Inj) (10/10/16 13:45) Ondansetron Inj (Zofran Inj) (10/10/16 13:45) Iohexol 350 Inj (Omnipaque 350 Inj) (10/10/16 13:56) Clindamycin Inj (Cleocin Inj) (10/10/16 15:00) Admit Order (Ed Use Only) (10/10/16 ) Labs Laboratory Tests Test 10/10/16 10/10/16 12:30 12:35 Urine Collection Type CLEAN CATCH Urine Color YELLOW Urine Turbidity SLIGHT Urine pH 5.5 Urine Specific [place] 1.018 Urine Protein 100 mg/dL Urine Glucose (UA) NEG mg/dL Urine Ketones TRACE mg/dL Urine Occult Blood NEG Urine Nitrite NEG Urine Bilirubin NEG Urine Leukocyte Esterase NEG Urine RBC 0-3 /hpf Urine WBC 0-2 /hpf Urine Squamous Epithelial 0-5 /hpf Cells Urine Amorphous Sediment FEW Microscopic Urinalysis Comment CULT NOT INDICATED Urine Collection Time 1230 White Blood Count 10.9 TH/MM3 Red Blood Count 5.00 MIL/MM3 Hemoglobin 13.2 GM/DL Hematocrit 40.1 % Mean Corpuscular Volume 80.2 FL Mean Corpuscular Hemoglobin 26.4 PG Mean Corpuscular Hemoglobin 32.9 % Concent Red Cell Distribution Width 12.9 % Platelet Count 348 TH/MM3 Mean Platelet Volume 7.7 FL Neutrophils (%) (Auto) 74.6 % Lymphocytes (%) (Auto) 18.8 % Monocytes (%) (Auto) 4.3 % Eosinophils (%) (Auto) 2.1 % Basophils (%) (Auto) 0.2 % Neutrophils # (Auto) 8.1 TH/MM3 Lymphocytes # (Auto) 2.1 TH/MM3 Monocytes # (Auto) 0.5 TH/MM3 Eosinophils # (Auto) 0.2 TH/MM3 Basophils # (Auto) 0.0 TH/MM3 CBC Comment DIFF FINAL Differential Comment Prothrombin Time 11.1 SEC Prothromb Time International 1.0 RATIO Ratio Activated Partial 33.4 SEC Thromboplast Time Sodium Level 138 MEQ/L Potassium Level 4.0 MEQ/L Chloride Level 107 MEQ/L Carbon Dioxide Level 22.8 MEQ/L Anion Gap 8 MEQ/L Blood Urea Nitrogen 15 MG/DL Creatinine 1.30 MG/DL Estimat Glomerular Filtration 42 ML/MIN Rate Random Glucose 169 MG/DL Hemoglobin A1c 5.5 % Calcium Level 9.4 MG/DL [facility] Medical Decision Making Medical Screen Exam Complete: Yes Emergency Medical Condition: Yes Medical Record Reviewed: Yes Differential Diagnosis Surgical consultation versus cellulitis versus abscess Narrative Course Patient is a 61-year-old female who comes in complaining of pain and swelling near her procedure site. Exam shows erythema and warmth to the site. IV established, labs sent. Labs show no acute abnormalities. Creatinine is bumped slightly to 1.3. Patient given 2 mg of morphine and Zofran. And pelvis performed shows a 1.2 cm fluid collection. This is hematoma versus abscess. There are inflammatory changes around the surgical site. Patient given a dose of clindamycin. Last 24 hours Impressions Abdomen/Pelvis CT 10/10/16 0000 Signed Impressions: Service Date/Time: Monday, October 10, 2016 13:24 - CONCLUSION: 1. There is nonspecific edema and/or inflammatory changes in the subcutaneous soft tissues in the right inguinal area. 2. There is a small 1.2 cm fluid collection just inside the peritoneal cavity adjacent to the anterior right iliac wing. This could be a small hematoma versus inflammatory process/small abscess. This finding needs to be correlated with patient's physical exam, clinical history and laboratory values such as patient's white count. 3. Several stable nonspecific pulmonary nodules are again demonstrated in the right lung base. MD Dr. William Holman suggests transfer to the main hospital for possible intervention. Patient placed in observation for further management Diagnosis Primary Impression: Fluid collection at surgical site Qualified Code: T88.8XXA - Fluid collection at surgical site, initial encounter Admitting Information Admitting Physician Requests: Observation Scripts No Active Prescriptions or Reported Meds Condition: Stable Migdalia Pratt MD October 10, 2016 15:31
[2016-10-10 16:03] VITALS: BP 113/62; PULSE 99; RESP 18; O2SAT 98
[2016-10-10] MEDS ORDERED: SODIUM CHLORIDE 0.9% FLUSH 10 ML FLUSH IV FLUSH PRN (16:15)
[2016-10-10] MEDS ORDERED: NALOXONE HCL 0.4 MG/ML AMP IV PRN (16:15)
[2016-10-10] MEDS ORDERED: ONDANSETRON HCL 4 MG/2 ML VIAL IVP PRN (16:15)
[2016-10-10] MEDS ORDERED: ACETAMINOPHEN 325 MG TAB PO PRN ×2 (16:15)
[2016-10-10 17:34] VITALS: BP 115/55; PULSE 87; O2SAT 97
[2016-10-10] MEDS: SODIUM CHLOR 0.9% 1000 ML INJ 1,000 ML IV SCH (17:35)
--- NOTE | 2016-10-10 17:36 | HHI.HP ---
HPI Service [facility] Primary Care Physician Ayah Luis MD Admission Diagnosis Post op complications Diagnoses: Chief Complaint: Abdominal pain Travel History International Travel<30 Days: No Contact w/Intl Traveler <30 Da: No Traveled to Known Affected Are: No History of Present Illness The patient is a 61-year-old female with a past medical history of myelofibrosis status post bone marrow transplant and chemotherapy who is presenting to the hospital with increasing abdominal pain following a recent procedure. The patient says she was treated for pneumonia and then was found to have a lung mass at that time. 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 The patient was brought in for stent placement by interventional radiology. Following the procedure the patient had nausea and vomiting which she possibly attributes to the medications from the procedure. A week ago from Sunday her right side of the abdomen started hurting. She went to the emergency department and they performed a CT scan which was normal. The patient was advised to put heating pads on the area and take it easy. The patient's abdominal pain on the right side continued to be quite severe and was shooting in nature. She said she had pain from her right breast down to her right knee. She said there was bleeding at the incision site from the procedure. She also says that there is redness in the area. She says she can't lay flat because the pain is worse that way. She says she also has increased pain with deep breathing. She has not been sleeping well. She has been eating well. She also describes urinating more frequently than normal. 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 Allergies: Coded Allergies: Codeine (Verified Allergy, Severe, 10/10/16) Active Ordered Medications Current Medications Medications (Trade) Dose Ordered Sig/Lisa Route Start Time Stop Time Status Last Admin (NS 1000 ml Inj) 1,000 ml @ 100 mls/hr Q10H IV 10/10/16 16:14 (NS Flush) 2 ml UNSCH PRN IV FLUSH 10/10/16 16:15 (NS Flush) 2 ml BID IV FLUSH 10/10/16 21:00 (Tylenol) 650 mg Q4H PRN PO 10/10/16 16:15 (Zofran Inj) 4 mg Q6H PRN IVP 10/10/16 16:15 (Tylenol) 650 mg Q6H PRN PO 10/10/16 16:15 (Narcan Inj) 0.4 mg UNSCH PRN IV 10/10/16 16:15 (Patricia-Colace) 1 tab BID PO 10/10/16 21:00 Family History Lung cancer Social History She quit smoking in 2008. She has social alcohol use. Physical Exam Vital Signs Vital Signs Date Time Temp Pulse Resp B/P Pulse Ox O2 Delivery O2 Flow Rate FiO2 10/10/16 16:03 99 18 113/62 98 Room Air 10/10/16 14:14 18 10/10/16 13:42 78 18 116/56 97 Room Air 10/10/16 13:02 100 Room Air 10/10/16 11:57 98.7 126 18 140/109 97 Physical Exam GENERAL: Awake and alert, in no acute distress. SKIN: Erythema and warmth, about 5 cm in area, around the surgical site. No active drainage currently. HEAD: Atraumatic. Normocephalic. EYES: Pupils equal and round. No scleral icterus. ENT: Mucous membranes pink and moist. NECK: Trachea midline. No JVD. CARDIOVASCULAR: Regular rate and rhythm. No murmur appreciated. RESPIRATORY: No accessory muscle use. Clear to auscultation. Breath sounds equal bilaterally. GASTROINTESTINAL: Abdomen soft, nondistended. Tender to palpation of right lower quadrant where she had the procedure performed. No rebound or guarding. MUSCULOSKELETAL: No obvious deformities. No clubbing. No cyanosis. No edema. NEUROLOGICAL: Awake and alert. No obvious cranial nerve deficits. Motor grossly within normal limits. Normal speech. PSYCHIATRIC: Appropriate mood and affect; insight and judgment normal. Laboratory Laboratory Tests Test 10/10/16 10/10/16 12:30 12:35 Urine Collection Type CLEAN CATCH Urine Color YELLOW Urine Turbidity SLIGHT Urine pH 5.5 Urine Specific Morehouse 1.018 Urine Protein 100 Urine Glucose (UA) NEG Urine Ketones TRACE Urine Occult Blood NEG Urine Nitrite NEG Urine Bilirubin NEG Urine Leukocyte Esterase NEG Urine RBC 0-3 Urine WBC 0-2 Urine Squamous Epithelial 0-5 Cells Urine Amorphous Sediment FEW Microscopic Urinalysis Comment CULT NOT INDICATED Urine Collection Time 1230 White Blood Count 10.9 Red Blood Count 5.00 Hemoglobin 13.2 Hematocrit 40.1 Mean Corpuscular Volume 80.2 Mean Corpuscular Hemoglobin 26.4 Mean Corpuscular Hemoglobin 32.9 Concent Red Cell Distribution Width 12.9 Platelet Count 348 Mean Platelet Volume 7.7 Neutrophils (%) (Auto) 74.6 Lymphocytes (%) (Auto) 18.8 Monocytes (%) (Auto) 4.3 Eosinophils (%) (Auto) 2.1 Basophils (%) (Auto) 0.2 Neutrophils # (Auto) 8.1 Lymphocytes # (Auto) 2.1 Monocytes # (Auto) 0.5 Eosinophils # (Auto) 0.2 Basophils # (Auto) 0.0 CBC Comment DIFF FINAL Differential Comment Prothrombin Time 11.1 Prothromb Time International 1.0 Ratio Activated Partial 33.4 Thromboplast Time Sodium Level 138 Potassium Level 4.0 Chloride Level 107 Carbon Dioxide Level 22.8 Anion Gap 8 Blood Urea Nitrogen 15 Creatinine 1.30 Estimat Glomerular Filtration 42 Rate Random Glucose 169 Calcium Level 9.4 Result Diagram: 10/10/16 1235 10/10/16 1235 Imaging Last Impressions Abdomen/Pelvis CT 10/10/16 0000 Signed Impressions: Service Date/Time: Monday, October 10, 2016 13:24 - CONCLUSION: 1. There is nonspecific edema and/or inflammatory changes in the subcutaneous soft tissues in the right inguinal area. 2. There is a small 1.2 cm fluid collection just inside the peritoneal cavity adjacent to the anterior right iliac wing. This could be a small hematoma versus inflammatory process/small abscess. This finding needs to be correlated with patient's physical exam, clinical history and laboratory values such as patient's white count. 3. Several stable nonspecific pulmonary nodules are again demonstrated in the right lung base. Toby Bateman MD Assessment and Plan Assessment and Plan Abdominal pain/ cellulitis The patient was found to have an incidental celiac artery saccular aneurysm and is status post stent placement by interventional radiology. The patient has been developing increased abdominal pain at the site. The incision is surrounded by erythema which raises concerns for infection. CT of the abdomen and pelvis showed: 1. There is nonspecific edema and/or inflammatory changes in the subcutaneous soft tissues in the right inguinal area; There is a small 1.2 cm fluid collection just inside the peritoneal cavity adjacent to the anterior right iliac wing, This could be a small hematoma versus inflammatory process/ small abscess. - IR has been consulted and will evaluate the pt at the [facility]. - continue IV clindamycin with lactobacillus. - Pain control with a bowel regimen. - IV fluids. - The patient will be made nothing by mouth at midnight. Lung mass Currently being worked up. She has a significant smoking history. - the pt states her ball racker wanted to be consulted. Dr. Galvan to see the pt. - oxygen and nebs as needed. Acute renal insufficiency Unsure of etiology. - Continue with IV fluids and follow BMP. - Avoid nephrotoxic agents. Tachycardia/ hypertension Likely secondary to pain. - Pain control. - IV fluids. - Vasotec if needed. Hyperglycemia No history of diabetes. Possibly a stress reaction. - Check a hemoglobin A1c. PPx: SCDs Code Status Full Discussed Condition With Dr. Pratt, pt Micky Puckett DO October 10, 2016 17:36
[2016-10-10] MEDS ORDERED: oxyCODONE/ACETAMINOPHEN 5 MG/325 MG TAB PO PRN (17:45)
[2016-10-10] MEDS ORDERED: oxyCODONE/ACETAMINOPHEN 10 MG/325 MG TAB PO PRN (17:45)
[2016-10-10 18:26] VITALS: BP 156/70; PULSE 98; RESP 18; TEMP 97.6; O2SAT 96
[2016-10-10] MEDS: LACTOBACILLUS ACIDOPHILUS TAB PO SCH (18:43)
[2016-10-10] MEDS: MORPHINE SULFATE 4 MG/ML INJ IV PUSH PRN (18:44)
[2016-10-10 20:04] LABS: HEMOGLOBIN A1a 1.4 %; HEMOGLOBIN A1b 1.8 %; HEMOGLOBIN Ao 84.2 %; HEMOGLOBIN LA1C 2.6 %; HEMOGLOBIN P3 5.5 %
--- NOTE | 2016-10-10 20:07 | PD.CAR.PN ---
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 Seay. This is indeed just proximal to the inguinal ligament i.e. in the very distal external iliac artery and placing stent here will be completely inappropriate because stent would kink and potentially obstruct not only the femoral artery but also deep femoral artery leading to disaster Therefore I will take patient to the operating room and repair the external iliac/femoral artery in open fashion tomorrow Full consult to follow Thanks J Objective: Vital Signs Date Time Temp Pulse Resp B/P Pulse Ox O2 Delivery O2 Flow Rate FiO2 10/10/16 18:49 20 10/10/16 18:26 97.6 98 18 156/70 96 10/10/16 17:34 87 115/55 97 10/10/16 16:03 99 18 113/62 98 Room Air 10/10/16 14:14 18 10/10/16 13:42 78 18 116/56 97 Room Air 10/10/16 13:02 100 Room Air 10/10/16 11:57 98.7 126 18 140/109 97 Labs: Laboratory Tests Test 10/10/16 10/10/16 12:30 12:35 Urine Collection Type CLEAN CATCH Urine Color YELLOW (YELLW/STRAW) Urine Turbidity SLIGHT (CLEAR) Urine pH 5.5 (5.0-8.5) Urine Specific Jesse 1.018 (1.002-1.035) Urine Protein 100 mg/dL (NEG-TRACE) Urine Glucose (UA) NEG mg/dL (NEG) Urine Ketones TRACE mg/dL (NEG) Urine Occult Blood NEG (NEG) Urine Nitrite NEG (NEG) Urine Bilirubin NEG (NEG) Urine Leukocyte Esterase NEG (NEG) Urine RBC 0-3 /hpf (0-3) Urine WBC 0-2 /hpf (0-5) Urine Squamous Epithelial 0-5 /hpf (0-5) Cells Urine Amorphous Sediment FEW Microscopic Urinalysis Comment CULT NOT INDICATED Urine Collection Time 1230 White Blood Count 10.9 TH/MM3 (4.0-11.0) Red Blood Count 5.00 MIL/MM3 (4.00-5.30) Hemoglobin 13.2 GM/DL (11.6-15.3) Hematocrit 40.1 % (35.0-46.0) Mean Corpuscular Volume 80.2 FL (80.0-100.0) Mean Corpuscular Hemoglobin 26.4 PG (27.0-34.0) Mean Corpuscular Hemoglobin 32.9 % Concent (32.0-36.0) Red Cell Distribution Width 12.9 % (11.6-17.2) Platelet Count 348 TH/MM3 (150-450) Mean Platelet Volume 7.7 FL (7.0-11.0) Neutrophils (%) (Auto) 74.6 % (16.0-70.0) Lymphocytes (%) (Auto) 18.8 % (9.0-44.0) Monocytes (%) (Auto) 4.3 % (0.0-8.0) Eosinophils (%) (Auto) 2.1 % (0.0-4.0) Basophils (%) (Auto) 0.2 % (0.0-2.0) Neutrophils # (Auto) 8.1 TH/MM3 (1.8-7.7) Lymphocytes # (Auto) 2.1 TH/MM3 (1.0-4.8) Monocytes # (Auto) 0.5 TH/MM3 (0-0.9) Eosinophils # (Auto) 0.2 TH/MM3 (0-0.4) Basophils # (Auto) 0.0 TH/MM3 (0-0.2) CBC Comment DIFF FINAL Differential Comment Prothrombin Time 11.1 SEC (9.8-11.6) Prothromb Time International 1.0 RATIO Ratio Activated Partial 33.4 SEC Thromboplast Time (24.3-30.1) Sodium Level 138 MEQ/L (136-145) Potassium Level 4.0 MEQ/L (3.5-5.1) Chloride Level 107 MEQ/L (98-107) Carbon Dioxide Level 22.8 MEQ/L (21.0-32.0) Anion Gap 8 MEQ/L (5-15) Blood Urea Nitrogen 15 MG/DL (7-18) Creatinine 1.30 MG/DL (0.50-1.00) Estimat Glomerular Filtration 42 ML/MIN (>89) Rate Random Glucose 169 MG/DL (74-106) Calcium Level 9.4 MG/DL (8.5-10.1) Result Diagram: 10/10/16 1235 10/10/16 1235 Joni Escalante MD October 10, 2016 20:07
[2016-10-10] MEDS ORDERED: ceFAZolin 2 GM PREMIX 50 ML IV SCH (20:15)
[2016-10-10] MEDS: DOCUSATE SODIUM 50 MG/SENNA 8.6 MG TAB PO SCH (21:00)
[2016-10-10 21:23] VITALS: BP_SYST 135; BP_SYST 144; BP_DIAS 71; BP_DIAS 90; PULSE 58; PULSE 95; RESP 18; TEMP 98.5; TEMP 98.7; O2SAT 97
[2016-10-10 21:44] LABS: AUTOMATED NEUTROPHIL # 7.1 TH/MM3 (1.8-7.7); BASOPHIL % 0.4 % (0.0-2.0); EOSINOPHIL # 0.3 TH/MM3 (0-0.4); EOSINOPHIL % 2.8 % (0.0-4.0); HEMATOCRIT 36.4 % (35.0-46.0); HEMO FLAGS DIFF FINAL; LYMPH % 21.4 % (9.0-44.0); LYMPHOCYTE # 2.3 TH/MM3 (1.0-4.8); MEAN CELL VOLUME 81.7 FL (80.0-100.0); MEAN CORPUSCULAR HEMOGLOBIN 26.8 PG (27.0-34.0); MEAN CORPUSCULAR HGB CONC 32.8 % (32.0-36.0); MONO % 8.5 % (0.0-8.0); NEUT % 66.9 % (16.0-70.0); PLATELET COUNT 310 TH/MM3 (150-450); RED BLOOD COUNT 4.46 MIL/MM3 (4.00-5.30); WHITE BLOOD COUNT 10.6 TH/MM3 (4.0-11.0)
[2016-10-10 21:51] LABS: APTT (PATIENT) 33.1 SEC (24.3-30.1); PROTHROMBIN TIME - PATIENT 11.1 SEC (9.8-11.6)
[2016-10-11 00:04] VITALS: BP 116/71; PULSE 91; RESP 18; TEMP 98; O2SAT 97
[2016-10-11] MEDS: MORPHINE SULFATE 4 MG/ML INJ IV PUSH PRN ×4 (03:26→20:47)
[2016-10-11] MEDS: SODIUM CHLORIDE 0.9% FLUSH 10 ML FLUSH IV FLUSH SCH ×3 (03:27→20:45)
[2016-10-11] MEDS: CLINDAMYCIN INJ 600 MG in SODIUM CHLORIDE 0.9% INJ 100 ML IV SCH ×2 (03:37→18:17)
[2016-10-11] MEDS: SODIUM CHLOR 0.9% 1000 ML INJ 1,000 ML IV SCH ×3 (03:37→20:46)
[2016-10-11 07:57] LABS: AUTOMATED NEUTROPHIL # 6.1 TH/MM3 (1.8-7.7); BASOPHIL # 0.1 TH/MM3 (0-0.2); BASOPHIL % 0.5 % (0.0-2.0); EOSINOPHIL # 0.4 TH/MM3 (0-0.4); EOSINOPHIL % 3.8 % (0.0-4.0); HEMATOCRIT 36.7 % (35.0-46.0); HEMO FLAGS DIFF FINAL; LYMPH % 21.5 % (9.0-44.0); MEAN CELL VOLUME 82.4 FL (80.0-100.0); MEAN CORPUSCULAR HEMOGLOBIN 26.9 PG (27.0-34.0); MEAN CORPUSCULAR HGB CONC 32.6 % (32.0-36.0); MONO % 9.4 % (0.0-8.0); NEUT % 64.8 % (16.0-70.0); PLATELET COUNT 296 TH/MM3 (150-450); RED BLOOD COUNT 4.45 MIL/MM3 (4.00-5.30); RED CELL DISTRIBUTION WIDTH 14.1 % (11.6-17.2); WHITE BLOOD COUNT 9.4 TH/MM3 (4.0-11.0)
[2016-10-11] MEDS ORDERED: HEPARIN SODIUM - SQ 10,000 UNITS/ML VIAL ONE (07:59)
[2016-10-11] MEDS ORDERED: PROTAMINE SULFATE 50 MG/5 ML VIAL ONE (07:59)
[2016-10-11] MEDS ORDERED: HEPARIN SODIUM - IV 10,000 UNITS/10 ML VIAL ONE (07:59)
[2016-10-11 08:00] VITALS: BP 122/59; PULSE 88; RESP 20; TEMP 99; O2SAT 95
[2016-10-11 08:16] LABS: BICARBONATE 28.5 MEQ/L (21.0-32.0); POTASSIUM 4.5 MEQ/L (3.5-5.1)
[2016-10-11] MEDS: LACTOBACILLUS ACIDOPHILUS TAB PO SCH ×3 (08:22→16:23)
[2016-10-11] MEDS: DOCUSATE SODIUM 50 MG/SENNA 8.6 MG TAB PO SCH ×2 (08:22→20:45)
--- NOTE | 2016-10-11 08:30 | HHI.PR ---
Subjective Remarks Follow up right groin pain. Patient seen and examined at bedside. She states her pain is better since receiving morphine. drawbridge tender to touch with surrounding edema and erythema. Denies any chest pain, sob, fever or chills. Objective Vitals Vital Signs Date Time Temp Pulse Resp B/P Pulse Ox O2 Delivery O2 Flow Rate FiO2 10/11/16 08:00 99.0 88 20 122/59 95 10/11/16 00:04 98.0 91 18 116/71 97 10/10/16 22:12 18 10/10/16 21:23 98.7 95 18 135/71 97 10/10/16 18:49 20 10/10/16 18:26 97.6 98 18 156/70 96 10/10/16 17:34 87 115/55 97 10/10/16 16:03 99 18 113/62 98 Room Air 10/10/16 14:14 18 10/10/16 13:42 78 18 116/56 97 Room Air 10/10/16 13:02 100 Room Air 10/10/16 11:57 98.7 126 18 140/109 97 Result Diagram: 10/11/16 0722 10/10/16 1235 Imaging Last Impressions Abdomen/Pelvis CT 10/10/16 0000 Signed Impressions: Service Date/Time: Monday, October 10, 2016 13:24 - CONCLUSION: 1. There is nonspecific edema and/or inflammatory changes in the subcutaneous soft tissues in the right inguinal area. 2. There is a small 1.2 cm fluid collection just inside the peritoneal cavity adjacent to the anterior right iliac wing. This could be a small hematoma versus inflammatory process/small abscess. This finding needs to be correlated with patient's physical exam, clinical history and laboratory values such as patient's white count. 3. Several stable nonspecific pulmonary nodules are again demonstrated in the right lung base. Toby Bateman MD ADDENDUM: The above was reviewed. I have the technologist performed thin section and multiplanar reconstructions to evaluate the right external iliac at the junction of the common femoral. There is irregularity of the vessel at this level with suggestion of a small, 6 mm wide neck pseudoaneurysm. This is positioned at the level of the inguinal ligament. The wide neck I believe precludes percutaneous thrombin embolization and I believe the lesion is too low for a covered stent. Discussed the case with Dr. Escalante from vascular surgery. We feel the most prudent approach is surgical repair at this juncture. rEen Seay MD Objective Remarks GENERAL: Pleasant lady in no acute distress. SKIN: Erythema and warmth, about 5 cm in surrounding area, around the surgical site in Right groin area. No active drainage currently. HEAD: Atraumatic. Normocephalic. EYES: Pupils equal and round. No scleral icterus. ENT: Mucous membranes pink and moist. NECK: Trachea midline. No JVD. CARDIOVASCULAR: Regular rate and rhythm. No murmur appreciated. RESPIRATORY: No accessory muscle use. Clear to auscultation. Breath sounds equal bilaterally. GASTROINTESTINAL: Abdomen soft, nondistended. Tender to palpation of right lower quadrant where she had the procedure performed. No rebound or guarding. MUSCULOSKELETAL: No obvious deformities. No clubbing. No cyanosis. No edema. Pedal pulses palpable. NEUROLOGICAL: Awake and alert. Motor grossly within normal limits. Normal speech. PSYCHIATRIC: Appropriate mood and affect; insight and judgment normal. Medications and IVs Current Medications Medications (Trade) Dose Ordered Sig/Lisa Route Start Time Stop Time Status Last Admin (NS 1000 ml Inj) 1,000 ml @ 100 mls/hr Q10H IV 10/10/16 16:14 10/11/16 03:37 (NS Flush) 2 ml UNSCH PRN IV FLUSH 10/10/16 16:15 (NS Flush) 2 ml BID IV FLUSH 10/10/16 21:00 10/11/16 03:27 (Tylenol) 650 mg Q4H PRN PO 10/10/16 16:15 (Zofran Inj) 4 mg Q6H PRN IVP 10/10/16 16:15 (Tylenol) 650 mg Q6H PRN PO 10/10/16 16:15 (Narcan Inj) 0.4 mg UNSCH PRN IV 10/10/16 16:15 Senna/Docusate Sodium 1 tab 1 tab BID PO 10/10/16 21:00 (Cleocin Inj/NS Inj) 104 ml @ 208 mls/hr Q8H IV 10/11/16 02:00 10/11/16 03:37 (Lactinex) 1 tab TID PO 10/10/16 18:00 10/10/16 18:43 (Percocet 5-325 Mg) 1 tab Q4H PRN PO 10/10/16 17:45 (Percocet 10-325 Mg) 1 tab Q4H PRN PO 10/10/16 17:45 10/10/16 20:39 (Morphine Inj) 2 mg Q3H PRN IV PUSH 10/10/16 17:45 10/11/16 07:52 Urinary Catheter: No Vascular Central Line Catheter: No A/P Assessment and Plan Abdominal pain/ cellulitis One week ago the patient was found to have an incidental celiac artery saccular aneurysm and is status post stent placement by interventional radiology. The patient has been developing increased abdominal pain at the site. CT of the abdomen and pelvis showed: There is nonspecific edema and/or inflammatory changes in the subcutaneous soft tissues in the right inguinal area ; There is a small 1.2 cm fluid collection just inside the peritoneal cavity adjacent to the anterior right iliac wing, This could be a small hematoma versus inflammatory process/small abscess. - IR consulted and Discussed with Dr. Alvarado who decided the best plan wouldbe to have a open iliac femoral artery repair, surgery planned for today at 10 am. - continue IV clindamycin with lactobacillus. - Pain control IV morphine and Percocet with a bowel regimen. - IV fluids. - NPO Lung mass Currently being worked up. She has a significant smoking history. 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 Dr. Galvan to see the pt. - oxygen and nebs as needed. Acute renal insufficiency, improving creatine 1.3--1.03 Unsure of etiology. - Continue with IV fluids and follow BMP. - Avoid nephrotoxic agents. Tachycardia/ hypertension, resolved Likely secondary to pain. - Pain control. - IV fluids. - Vasotec if needed. Hyperglycemia, resolved No history of diabetes. Possibly a stress reaction. - Hemoglobin A1c 5.5. PPx: Gena Briceno October 11, 2016 08:30
[2016-10-11] MEDS ORDERED: LACTATED RINGER'S 1000 ML INJ 1,000 ML IV ONE ×2 (08:40→12:00)
[2016-10-11] MEDS ORDERED: PROPOFOL 200 MG/20 ML AMP IV ONE (08:40)
[2016-10-11] MEDS ORDERED: ONDANSETRON HCL 4 MG/2 ML VIAL IV PUSH ONE (08:40)
--- NOTE | 2016-10-11 09:00 | MB ---
cc: DESTINY LOPEZ DATE OF CONSULTATION 10/10/[address] Puckett. REASON FOR CONSULTATION Lung mass HISTORY OF PRESENT ILLNESS Ms. Alarcon is a pleasant 61-year-old female with history of chronic bronchitis, calcified granuloma of the lung. She had a CT scan of the chest done at [facility] which showed that she has a 6.2 x 4.8-cm perihilar mass which has increased compared to the previous study. She also has enlarging pretracheal, precarinal and right hilar and subcarinal lymphadenopathy concerning for malignancy. She does have granulomatous changes in the left hilum. The patient was found to have a celiac artery mural thickening and a septal aneurysm. She underwent stent placement with interventional radiology about two weeks ago. After that, the patient started having swelling in that area. She came to the hospital because the area was swollen and she has been discharged from it. PAST MEDICAL HISTORY 1. History of chronic bronchitis 2. Myelodysplastic syndrome 3. Bone marrow transplant 2008, 4. 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 Recent celiac artery stent placement. MEDICATIONS Currently taking 1. Clindamycin IV. 2. Oxycodone for pain. ALLERGIES CODEINE SOCIAL HISTORY She has A history of work for 30 years, 1 1/2 pack per day which she quit in 2008. No alcohol or drug abuse. FAMILY HISTORY She is for 36 years. She has three children. She has two sisters, one with cancer of the lung. Mother with carcinoma. Father with cancer of the lung. REVIEW OF SYSTEMS She denies any weight loss. No fevers or chills. She has complaints of pain in the groin. PHYSICAL EXAMINATION GENERAL: Elderly female not in any acute distress. VITAL SIGNS: Blood pressure 156/70, heart rate 90, respiration 18, temperature 97.6 HEENT: Pupils are equal and reactive. Oral mucosa, nasal mucosa normal. NECK: Supple. JVP not raised. CHEST: Equal bilaterally. No rhonchi. CARDIOVASCULAR: S1, S2 normal. ABDOMEN: Soft, nontender, nondistended. She has swelling in the right groin which is tender to touch and warm EXTREMITIES: No edema. IMPRESSION 1. Right perihilar mass measuring 6.2 x 4.8 cm with enlarged pretracheal, precarinal lymphadenopathy concerning for malignancy. 2. Recent celiac artery stent placement and swelling in the groin possible infection. 3. History of myelodysplastic syndrome 4. Bone marrow transplant. 5. [id number] disease affecting her eyes and skin lesion PLAN Discussed with the patient we will request interventional radiology for CT-guided lung biopsy. She started on antibiotic for infection in the groin. Continue other medication. Further treatment will depend on the course in the hospital. Thank you Dr. Puckett for this consultation. MD JENY Vizcarra/ /7:36 PM /9:19 AM
--- NOTE | 2016-10-11 09:04 | MB ---
cc: JONI MOSCOSO MD DATE OF CONSULTATION: 10/10/[address] Moscoso, Vascular Surgery. 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 HISTORY OF PRESENT ILLNESS This 61-year-old lady underwent 2 weeks ago stenting of a saccular aneurysm of the celiac axis. The patient did postoperatively very well. However, she started getting more pain in her right groin where the catheterization was performed through. A CT scan reveals a small hematoma in the pelvis and ultrasound reveals pseudoaneurysm at the very inguinal ligament between external iliac and common femoral artery junction and hence, the consultation. PAST MEDICAL HISTORY 1. Frequent bouts of bronchitis. 2. Myelofibrosis with myeloid metaplasia with bone marrow transplant. 3. Pneumonia. 4. Above-noted aneurysm. PAST SURGICAL HISTORY Surgical history is as above-noted. SOCIAL HISTORY The patient was smoking most of her adult life until 2008. She is a social drinker. PHYSICAL EXAMINATION GENERAL: A pleasant 61-year-old lady, normocephalic. HEENT: No trauma to the head. Pupils equally reactive. Extraocular muscles intact. NECK: Supple. Bilateral carotid pulses. No bruits. CHEST: Bilateral breath sounds. HEART: Regular rhythm. ABDOMEN: Soft. Active bowel sounds. No rebound or guarding. No masses. GROINS: The right groin reveals swelling and bruising consistent with previous procedure. On palpation the patient is extremely tender over the right groin. No masses are noted. However, the whole area is swollen. EXTREMITIES: The patient has palpable femoral, popliteal, dorsalis pedis, posterior tibial pulses. NEUROLOGIC: Neurologically she is fully intact. IMPRESSION AND RECOMMENDATIONS I reviewed laboratory notes, the procedures and looked at with Dr. Seay. The lady does have a pseudoaneurysm which is at the junction of external iliac and common femoral artery just under inguinal ligament. Going ahead and stenting this would be likely unwise because when the patient bent over the stent would clearly kink. There is clearly communication with the vessel and therefore the patient needs this fixed. I believe in this particular situation it is best to approach it open and I will take the patient to the operating room today to repair the defect. I thank you much for the referral. Joni SWAIN/TLL /8:36 AM /8:53 AM
[2016-10-11] MEDS ORDERED: ACETAMINOPHEN 1000 MG/100 ML VIAL IV ONE (09:07)
[2016-10-11] MEDS ORDERED: SUGAMMADEX SODIUM 200 MG/2 ML VIAL IV PUSH ONE ×2 (09:07)
[2016-10-11] MEDS ORDERED: MIDAZOLAM HCL 2 MG/2 ML VIAL ONE (10:25)
[2016-10-11] MEDS ORDERED: FAMOTIDINE 20 MG/2 ML VIAL ONE (10:25)
[2016-10-11] MEDS ORDERED: VANCOMYCIN HCL 1000 MG VIAL ONE (12:04)
--- NOTE | 2016-10-11 12:28 | RADRPT ---
EXAM DATE/TIME: 10/11/2016 06:00 COMPARISON: CT PULMONARY ANGIOGRAM, August 12, 2016, 5:39. INDICATIONS : Right lung mass. FINDINGS: The patient has large right hilar mass. Findings have been discussed with Dr. Galvan. This can be ac cessed percutaneously with moderate risk of pneumothorax and hemorrhage. CONCLUSION: CT guided biopsy will be attempted. Mich Bauer MD FACR on October 11, 2016 at 12:25 Board Certified Radiologist. This report was verified electronically.
[2016-10-11] MEDS ORDERED: PIPERACIL-TAZO 3.375 GM PREMIX 50 ML IV ONE (12:30)
[2016-10-11] MEDS ORDERED: fentaNYL CITRATE 250 MCG/5 ML AMP ONE (13:52)
[2016-10-11] MEDS ORDERED: MORPHINE SULFATE 4 MG/ML INJ ONE (13:52)
[2016-10-11] MEDS ORDERED: *morphine SULFATE 8 MG/ML PERIprocedure ONLY ONE ×2 (14:04→14:37)
[2016-10-11 16:00] VITALS: BP 129/60; PULSE 76; RESP 18; TEMP 95.6; O2SAT 97
[2016-10-11 16:18] VITALS: BP 129/60
[2016-10-11 19:50] VITALS: O2SAT 97
[2016-10-11 20:00] VITALS: BP 114/62; PULSE 70; RESP 17; TEMP 97.1; O2SAT 98
[2016-10-11] MEDS: PIPERACIL-TAZO 3.375 GM PREMIX 50 ML IV SCH (20:44)
--- NOTE | 2016-10-11 20:47 | HHI.PR ---
Subjective Remarks 61 YOWF with perihilar mass, MDS,S/P BM transplant Had repair of right groin Pseudo anerysm Feels much better Objective Vital Signs Vital Signs Date Time Temp Pulse Resp B/P Pulse Ox O2 Delivery O2 Flow Rate FiO2 10/11/16 20:00 97.1 70 17 114/62 98 10/11/16 19:50 97 Nasal Cannula 2.00 10/11/16 16:18 129/60 10/11/16 16:00 95.6 76 18 129/60 97 10/11/16 14:55 83 14 122/62 96 Nasal Cannula 2 10/11/16 14:45 81 14 120/58 97 Nasal Cannula 2 10/11/16 14:30 80 14 132/60 97 Nasal Cannula 2 10/11/16 14:15 78 14 128/61 96 Nasal Cannula 2 10/11/16 14:00 82 14 129/62 98 Nasal Cannula 2 10/11/16 13:45 97.9 84 14 120/60 97 Nasal Cannula 2 10/11/16 08:00 99.0 88 20 122/59 95 10/11/16 00:04 98.0 91 18 116/71 97 10/10/16 22:12 18 10/10/16 21:23 98.7 95 18 135/71 97 I/O 10/10/16 10/10/16 10/10/16 10/11/16 10/11/16 10/11/16 07:00 15:00 23:00 07:00 15:00 23:00 Intake Total 2450 ml Output Total 600 ml 30 ml Balance 1850 ml -30 ml Intake Oral 50 ml IV Total 400 ml Other 2000 ml Output Urine Total 300 ml Drainage Total 30 ml Estimated Blood Loss 300 ml Result Diagram: 10/11/1672110/11/16721 Objective Remarks GENERAL: MBMN Wm,NAD SKIN: Warm and dry. HEAD: Normocephalic. EYES: No scleral icterus. No injection or drainage. NECK: Supple, trachea midline. No JVD or lymphadenopathy. CARDIOVASCULAR: Regular rate and rhythm without murmurs, gallops, or rubs. RESPIRATORY: Breath sounds equal bilaterally. No accessory muscle use. GASTROINTESTINAL: Abdomen soft, non-tender, nondistended. MUSCULOSKELETAL: No cyanosis, or edema. has VAC device in right groin BACK: Nontender without obvious deformity. No CVA tenderness. A/P Assessment and Plan Right Perihilar mass Right groin Pseudo aneurysm repair MDS S/P BM transplant PLAN: Cont Abx DW CT Guided lung bx Francisco Javier Galvan MD October 11, 2016 20:47
[2016-10-12] VITALS (8 sets, daily range): BP systolic 104–141; BP diastolic 55–64; PULSE 69–94; RESP 17–18; TEMP 96.4–98.6; O2SAT 94–98
[2016-10-12] MEDS: MORPHINE SULFATE 4 MG/ML INJ IV PUSH PRN ×5 (00:02→21:57)
[2016-10-12] MEDS: VANCOMYCIN INJ 1,000 MG in SODIUM CHLOR 0.9% 250 ML INJ 250 ML IV SCH ×2 (00:03→11:22)
[2016-10-12] MEDS: CLINDAMYCIN INJ 600 MG in SODIUM CHLORIDE 0.9% INJ 100 ML IV SCH ×3 (02:05→16:35)
[2016-10-12] MEDS: PIPERACIL-TAZO 3.375 GM PREMIX 50 ML IV SCH ×3 (04:50→20:43)
[2016-10-12 04:54] LABS: AUTOMATED NEUTROPHIL # 8.9 TH/MM3 (1.8-7.7); BASOPHIL # 0.1 TH/MM3 (0-0.2); BASOPHIL % 0.5 % (0.0-2.0); HEMO FLAGS DIFF FINAL; LYMPH % 13.3 % (9.0-44.0); LYMPHOCYTE # 1.5 TH/MM3 (1.0-4.8); MEAN CELL VOLUME 80.6 FL (80.0-100.0); MEAN CORPUSCULAR HEMOGLOBIN 27.1 PG (27.0-34.0); MEAN CORPUSCULAR HGB CONC 33.6 % (32.0-36.0); MONO % 6.1 % (0.0-8.0); NEUT % 80.1 % (16.0-70.0); PLATELET COUNT 278 TH/MM3 (150-450); RED BLOOD COUNT 3.96 MIL/MM3 (4.00-5.30); RED CELL DISTRIBUTION WIDTH 13.8 % (11.6-17.2); WHITE BLOOD COUNT 11.1 TH/MM3 (4.0-11.0)
[2016-10-12 05:17] LABS: ANION GAP 8 MEQ/L (5-15); AST (GOT) 12 U/L (15-37); BLOOD UREA NITROGEN 10 MG/DL (7-18); CHLORIDE 106 MEQ/L (98-107); GLOMERULAR FILTRATION RATE 58 ML/MIN (>89); POTASSIUM 4.1 MEQ/L (3.5-5.1); SODIUM (NA) 139 MEQ/L (136-145)
[2016-10-12 05:20] LABS: ALKALINE PHOSPHATASE 80 U/L (45-117); ALT (GPT) 12 U/L (10-53); TOTAL BILIRUBIN ADULT 0.2 MG/DL (0.2-1.0)
[2016-10-12] MEDS: SODIUM CHLOR 0.9% 1000 ML INJ 1,000 ML IV SCH (08:24)
[2016-10-12] MEDS: SODIUM CHLORIDE 0.9% FLUSH 10 ML FLUSH IV FLUSH SCH ×2 (08:24→20:44)
[2016-10-12] MEDS: LACTOBACILLUS ACIDOPHILUS TAB PO SCH ×3 (08:24→16:35)
[2016-10-12] MEDS: DOCUSATE SODIUM 50 MG/SENNA 8.6 MG TAB PO SCH ×2 (08:24→20:44)
--- NOTE | 2016-10-12 12:10 | EKG ---
Date Performed: 10/11/2016 Time Performed: 09:09:01 PTAGE: 61 years EKG: Sinus rhythm WITH SHORT ID INTERVAL BORDERLINE ECG INTERPRETATION BASED ON A DEFAULT AGE OF 40 YEARS Compared to prior tracing no significant change DOCTOR: Tha Her Interpretating Date/Time 10/12/2016 12:09:15
--- NOTE | 2016-10-12 15:18 | PD.ID.CON ---
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 Pneumonia Lung mass GERD Past Surgical History 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 Active Ordered Medications Medications where reviewed in EMR Antibiotics Include: zosyn vanco Family History lung ca - father Social History tobacco - quit in 2008 social ETOH no IVDU, no illicits Physical Exam Vital Signs Vital Signs Date Time Temp Pulse Resp B/P Pulse Ox O2 Delivery O2 Flow Rate FiO2 10/12/16 12:00 98.1 90 18 118/61 95 10/12/16 08:09 96 Nasal Cannula 2.00 10/12/16 08:00 97.4 82 17 121/56 94 10/12/16 04:06 96.4 83 17 117/58 94 10/12/16 00:06 97.1 69 18 104/55 98 10/11/16 20:00 97.1 70 17 114/62 98 10/11/16 19:50 97 Nasal Cannula 2.00 10/11/16 16:18 129/60 5/31/17 16:00 95.6 76 18 129/60 97 Physical Exam CONSTITUTIONAL/GENERAL: This is an adequately nourished patient, in no apparent distress. TUBES/LINES/DRAINS: SKIN: No jaundice, rashes, or lesions. Skin temperature appropriate. Not diaphoretic. HEAD: Atraumatic. Normocephalic. EYES: Pupils equal and round and reactive. Extraocular motions intact. No scleral icterus. No injection or drainage. Fundi not examined. ENT: Hearing grossly normal. Nose without bleeding or purulent drainage. Throat without visible erythema, exudates, masses, or lesions. NECK: Trachea midline. Supple, nontender. CARDIOVASCULAR: Regular rate and rhythm without murmurs, gallops, or rubs. No JVD. Peripheral pulses symmetric. RESPIRATORY/CHEST: Symmetric, unlabored respirations. Clear to auscultation. Breath sounds equal bilaterally. No wheezes, rales, or rhonchi. GASTROINTESTINAL: Abdomen soft, non-tender, nondistended. No hepato-splenomegaly , or palpable masses. No guarding. Bowel sounds present. GENITOURINARY: Without palpable bladder distension. MUSCULOSKELETAL: Extremities without clubbing, cyanosis, or edema. No joint tenderness or effusion noted. No calf tenderness. No mottling or clubbing. LYMPHATICS: No palpable cervical or supraclavicular adenopathy. NEUROLOGICAL: Awake and alert. Motor and sensory grossly within normal limits. Follows commands. Cognitively sharp. Moves all extremities. PSYCHIATRIC: No obvious anxiety/depression. no apparent hallucinations or other psychotic thought process. STATUS LOCALIS: R groing incision closed,JOSE ALFREDO in place with cloudy serosang dc noinduration sme ecchymosis preset Laboratory Laboratory Tests Test 10/12/16 04:23 White Blood Count 11.1 Red Blood Count 3.96 Hemoglobin 10.7 Hematocrit 32.0 Mean Corpuscular Volume 80.6 Mean Corpuscular Hemoglobin 27.1 Mean Corpuscular Hemoglobin 33.6 Concent Red Cell Distribution Width 13.8 Platelet Count 278 Mean Platelet Volume 8.1 Neutrophils (%) (Auto) 80.1 Lymphocytes (%) (Auto) 13.3 Monocytes (%) (Auto) 6.1 Eosinophils (%) (Auto) 0.0 Basophils (%) (Auto) 0.5 Neutrophils # (Auto) 8.9 Lymphocytes # (Auto) 1.5 Monocytes # (Auto) 0.7 Eosinophils # (Auto) 0.0 Basophils # (Auto) 0.1 CBC Comment DIFF FINAL Differential Comment Sodium Level 139 Potassium Level 4.1 Chloride Level 106 Carbon Dioxide Level 25.0 Anion Gap 8 Blood Urea Nitrogen 10 Creatinine 0.97 Estimat Glomerular Filtration 58 Rate Random Glucose 151 Calcium Level 8.9 Total Bilirubin 0.2 Aspartate Amino Transf 12 (AST/SGOT) Alanine Aminotransferase 12 (ALT/SGPT) Alkaline Phosphatase 80 Total Protein 7.1 Albumin 2.5 Date/Time Procedure Status Source Growth 10/11/16 11:15 Gram Stain - Final Resulted Fluid Other 10/11/16 11:15 Body Fluid Culture - Preliminary Resulted Fluid Other NO GROWTH IN 24 HOURS. 10/11/16 11:15 Fungal Smear - Final Resulted Fluid Other NO FUNGAL ELEMENTS SEEN. 10/11/16 11:15 Fungal Culture Resulted Fluid Other Pending 10/11/16 11:15 Acid Fast Stain Received Fluid Other Pending 10/11/16 11:15 Mycobacterial Culture Received Fluid Other Pending Result Diagram: 10/12/16 0423 10/12/16 0423 Imaging Last Impressions Consultation 10/11/16 0600 Signed Impressions: Service Date/Time: Tuesday, October 11, 2016 06:00 - CONCLUSION: CT guided biopsy will be attempted. Mich Bauer MD FACR Abdomen/Pelvis CT 10/10/16 0000 Signed Impressions: Service Date/Time: Monday, October 10, 2016 13:24 - CONCLUSION: 1. There is nonspecific edema and/or inflammatory changes in the subcutaneous soft tissues in the right inguinal area. 2. There is a small 1.2 cm fluid collection just inside the peritoneal cavity adjacent to the anterior right iliac wing. This could be a small hematoma versus inflammatory process/small abscess. This finding needs to be correlated with patient's physical exam, clinical history and laboratory values such as patient's white count. 3. Several stable nonspecific pulmonary nodules are again demonstrated in the right lung base. Toby Bateman MD ADDENDUM: The above was reviewed. I have the technologist performed thin section and multiplanar reconstructions to evaluate the right external iliac at the junction of the common femoral. There is irregularity of the vessel at this level with suggestion of a small, 6 mm wide neck pseudoaneurysm. This is positioned at the level of the inguinal ligament. The wide neck I believe precludes percutaneous thrombin embolization and I believe the lesion is too low for a covered stent. Discussed the case with Dr. Escalante from vascular surgery. We feel the most prudent approach is surgical repair at this juncture. Eren Seay MD Assessment and Plan Assessment and Plan R femoral artery pseudoaneurism, post procedural Status post repair of the right external iliac /common femoral artery with vein patch 10/12/16 Suspected abscess, infecton of the pseudoanurism - clx P; so far no graowth Cont jeferson case for now untill clx are final will fu clx Jayne Conner MD Oct 12, 2016 15:18
--- NOTE | 2016-10-12 16:16 | PD.CAR.PN ---
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 Seay. This is indeed just proximal to the inguinal ligament i.e. in the very distal external iliac artery and placing stent here will be completely inappropriate because stent would kink and potentially obstruct not only the femoral artery but also deep femoral artery leading to disaster Therefore I will take patient to the operating room and repair the external iliac/femoral artery in open fashion tomorrow Full consult to abdirashid Ogden J 10/12/16 Status post repair of the right external iliac /common femoral artery with vein patch Incision is clean and dry JOSE ALFREDO drainage about 70 cc over last 24 hours I will leave the JOSE ALFREDO for another day and probably remove it tomorrow Patient can be out of bed and can ambulate Preliminary cultures are negative the patient should've definitely remain on antibiotics for the duration at least 2 weeks Objective: Vital Signs Date Time Temp Pulse Resp B/P Pulse Ox O2 Delivery O2 Flow Rate FiO2 10/12/16 12:00 98.1 90 18 118/61 95 10/12/16 08:09 96 Nasal Cannula 2.00 10/12/16 08:00 97.4 82 17 121/56 94 10/12/16 04:06 96.4 83 17 117/58 94 10/12/16 00:06 97.1 69 18 104/55 98 10/11/16 20:00 97.1 70 17 114/62 98 10/11/16 19:50 97 Nasal Cannula 2.00 10/11/16 16:18 129/60 Labs: Laboratory Tests Test 10/12/16 04:23 White Blood Count 11.1 TH/MM3 (4.0-11.0) Red Blood Count 3.96 MIL/MM3 (4.00-5.30) Hemoglobin 10.7 GM/DL (11.6-15.3) Hematocrit 32.0 % (35.0-46.0) Mean Corpuscular Volume 80.6 FL (80.0-100.0) Mean Corpuscular Hemoglobin 27.1 PG (27.0-34.0) Mean Corpuscular Hemoglobin 33.6 % Concent (32.0-36.0) Red Cell Distribution Width 13.8 % (11.6-17.2) Platelet Count 278 TH/MM3 (150-450) Mean Platelet Volume 8.1 FL (7.0-11.0) Neutrophils (%) (Auto) 80.1 % (16.0-70.0) Lymphocytes (%) (Auto) 13.3 % (9.0-44.0) Monocytes (%) (Auto) 6.1 % (0.0-8.0) Eosinophils (%) (Auto) 0.0 % (0.0-4.0) Basophils (%) (Auto) 0.5 % (0.0-2.0) Neutrophils # (Auto) 8.9 TH/MM3 (1.8-7.7) Lymphocytes # (Auto) 1.5 TH/MM3 (1.0-4.8) Monocytes # (Auto) 0.7 TH/MM3 (0-0.9) Eosinophils # (Auto) 0.0 TH/MM3 (0-0.4) Basophils # (Auto) 0.1 TH/MM3 (0-0.2) CBC Comment DIFF FINAL Differential Comment Sodium Level 139 MEQ/L (136-145) Potassium Level 4.1 MEQ/L (3.5-5.1) Chloride Level 106 MEQ/L (98-107) Carbon Dioxide Level 25.0 MEQ/L (21.0-32.0) Anion Gap 8 MEQ/L (5-15) Blood Urea Nitrogen 10 MG/DL (7-18) Creatinine 0.97 MG/DL (0.50-1.00) Estimat Glomerular Filtration 58 ML/MIN (>89) Rate Random Glucose 151 MG/DL (74-106) Calcium Level 8.9 MG/DL (8.5-10.1) Total Bilirubin 0.2 MG/DL (0.2-1.0) Aspartate Amino Transf 12 U/L (15-37) (AST/SGOT) Alanine Aminotransferase 12 U/L (10-53) (ALT/SGPT) Alkaline Phosphatase 80 U/L (45-117) Total Protein 7.1 GM/DL (6.4-8.2) Albumin 2.5 GM/DL (3.4-5.0) Result Diagram: 10/12/16 04210/12/16 042 Joni Escalante MD Oct 12, 2016 16:16
[2016-10-12] MEDS: CLOPIDOGREL 75 MG TAB PO SCH (16:35)
[2016-10-12] MEDS ORDERED: MAGNESIUM HYDROXIDE SUSP 30 ML CUP PO PRN (16:45)
--- NOTE | 2016-10-12 17:09 | HHI.PR ---
Subjective Remarks Whenever patient is not laying down she states that her pain is controlled. Moving or trying to walk around exacerbates her pain. The Percocets gives her a headache. Denies any nausea, vomiting, chest pain or shortness of breath. Discussed RN, Marina gives her a headache Objective Vitals Vital Signs Date Time Temp Pulse Resp B/P Pulse Ox O2 Delivery O2 Flow Rate FiO2 10/12/16 12:00 98.1 90 18 118/61 95 10/12/16 08:09 96 Nasal Cannula 2.00 10/12/16 08:00 97.4 82 17 121/56 94 10/12/16 04:06 96.4 83 17 117/58 94 10/12/16 00:06 97.1 69 18 104/55 98 10/11/16 20:00 97.1 70 17 114/62 98 10/11/16 19:50 97 Nasal Cannula 2.00 I/O 10/11/16 10/11/16 10/11/16 10/12/16 10/12/16 10/12/16 07:00 15:00 23:00 07:00 15:00 23:00 Intake Total 2450 ml 525 ml 1056 ml 940 ml Output Total 600 ml 2035 ml 1010 ml 1315 ml Balance 1850 ml -1510 ml 46 ml -375 ml Intake Oral 50 ml 120 ml 280 ml 500 ml IV Total 400 ml 405 ml 776 ml 440 ml Other 2000 ml Output Urine Total 300 ml 2000 ml 1000 ml 1300 ml Drainage Total 35 ml 10 ml 15 ml Estimated Blood Loss 300 ml # Bowel Movements 0 Result Diagram: 10/12/16 0423 10/12/16 0423 Imaging Last Impressions Consultation 10/11/16 0600 Signed Impressions: Service Date/Time: Tuesday, October 11, 2016 06:00 - CONCLUSION: CT guided biopsy will be attempted. Mich Bauer MD FACR Abdomen/Pelvis CT 10/10/16 0000 Signed Impressions: Service Date/Time: Monday, October 10, 2016 13:24 - CONCLUSION: 1. There is nonspecific edema and/or inflammatory changes in the subcutaneous soft tissues in the right inguinal area. 2. There is a small 1.2 cm fluid collection just inside the peritoneal cavity adjacent to the anterior right iliac wing. This could be a small hematoma versus inflammatory process/small abscess. This finding needs to be correlated with patient's physical exam, clinical history and laboratory values such as patient's white count. 3. Several stable nonspecific pulmonary nodules are again demonstrated in the right lung base. Toby Bateman MD ADDENDUM: The above was reviewed. I have the technologist performed thin section and multiplanar reconstructions to evaluate the right external iliac at the junction of the common femoral. There is irregularity of the vessel at this level with suggestion of a small, 6 mm wide neck pseudoaneurysm. This is positioned at the level of the inguinal ligament. The wide neck I believe precludes percutaneous thrombin embolization and I believe the lesion is too low for a covered stent. Discussed the case with Dr. Escalante from vascular surgery. We feel the most prudent approach is surgical repair at this juncture. Eren Seay MD Objective Remarks GENERAL: Pleasant lady in no acute distress. SKIN: Dressing over the right groin with drain in place (serosanguineous fluid noted) CARDIOVASCULAR: Regular rate and rhythm. No murmur appreciated. RESPIRATORY: No accessory muscle use. Clear to auscultation. Breath sounds equal bilaterally. GASTROINTESTINAL: Abdomen soft, nondistended. Tender to palpation of right lower quadrant where she had the procedure performed. No rebound or guarding. MUSCULOSKELETAL: No obvious deformities. No edema. Pedal pulses palpable. NEUROLOGICAL: Awake and alert. Motor grossly within normal limits. Normal speech. 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 The patient has been developing increased abdominal pain at the site. CT of the abdomen and pelvis showed: There is nonspecific edema and/or inflammatory changes in the subcutaneous soft tissues in the right inguinal area ; There is a small 1.2 cm fluid collection just inside the peritoneal cavity adjacent to the anterior right iliac wing, This could be a small hematoma versus inflammatory process/small abscess. - IR consulted and Discussed with Dr. Alvarado who evaluated patient and she is currently status post open iliac femoral artery repair postop day 1 -On vancomycin and Zosyn. Infectious disease following. Appreciate recommendations -Patient having headaches from Percocets. We'll switch to [place] as needed and when necessary IV morphine for breakthrough pain - IV fluids. Lung mass Currently being worked up. She has a significant smoking history. - Dr. Galvan following and has discussed case with IR for CT-guided biopsy - oxygen and nebs as needed. Acute renal insufficiency, improving creatine 1.3-->0.97 Unsure of etiology. - Continue with IV fluids and follow BMP. - Avoid nephrotoxic agents. Tachycardia/ hypertension, resolved Likely secondary to pain. - Pain control. - IV fluids. - Vasotec if needed. Hyperglycemia, resolved No history of diabetes. Possibly a stress reaction. - Hemoglobin A1c 5.5. Discharge Planning d/c pending further work-up and clinical improvement Nayla Collazo MD Oct 12, 2016 17:09
--- NOTE | 2016-10-12 20:06 | HHI.PR ---
Subjective Remarks 61 YOWF with perihilar mass, MDS,S/P BM transplant Had repair of right groin Pseudo anerysm Feels much better has pain in groin on getting up Objective Vital Signs Vital Signs Date Time Temp Pulse Resp B/P Pulse Ox O2 Delivery O2 Flow Rate FiO2 10/12/16 16:00 98.6 91 18 120/60 96 10/12/16 12:00 98.1 90 18 118/61 95 10/12/16 08:09 96 Nasal Cannula 2.00 10/12/16 08:00 97.4 82 17 121/56 94 10/12/16 04:06 96.4 83 17 117/58 94 10/12/16 00:06 97.1 69 18 104/55 98 I/O 10/11/16 10/11/16 10/11/16 10/12/16 10/12/16 10/12/16 07:00 15:00 23:00 07:00 15:00 23:00 Intake Total 2450 ml 525 ml 1056 ml 940 ml Output Total 600 ml 2035 ml 1010 ml 1315 ml Balance 1850 ml -1510 ml 46 ml -375 ml Intake Oral 50 ml 120 ml 280 ml 500 ml IV Total 400 ml 405 ml 776 ml 440 ml Other 2000 ml Output Urine Total 300 ml 2000 ml 1000 ml 1300 ml Drainage Total 35 ml 10 ml 15 ml Estimated Blood Loss 300 ml # Bowel Movements 0 Result Diagram: 10/12/16 0423 10/12/16 042 Objective Remarks GENERAL: MBMN Wm,NAD SKIN: Warm and dry. HEAD: Normocephalic. EYES: No scleral icterus. No injection or drainage. NECK: Supple, trachea midline. No JVD or lymphadenopathy. CARDIOVASCULAR: Regular rate and rhythm without murmurs, gallops, or rubs. RESPIRATORY: Breath sounds equal bilaterally. No accessory muscle use. GASTROINTESTINAL: Abdomen soft, non-tender, nondistended. MUSCULOSKELETAL: No cyanosis, or edema. has VAC device in right groin BACK: Nontender without obvious deformity. No CVA tenderness. A/P Assessment and Plan Right Perihilar mass Right groin Pseudo aneurysm repair MDS S/P BM transplant PLAN: Cont Abx Stable on Francisco Javier Barfield MD Oct 12, 2016 20:06
[2016-10-12] MEDS: ACETAMINOPHEN/HYDROcodone 325 MG/10 MG TAB PO PRN (20:44)
[2016-10-13] MEDS: VANCOMYCIN INJ 1,000 MG in SODIUM CHLOR 0.9% 250 ML INJ 250 ML IV SCH ×2 (01:03→12:16)
[2016-10-13] MEDS: CLINDAMYCIN INJ 600 MG in SODIUM CHLORIDE 0.9% INJ 100 ML IV SCH ×2 (02:00→10:29)
[2016-10-13] MEDS: MORPHINE SULFATE 4 MG/ML INJ IV PUSH PRN (02:31)
[2016-10-13] MEDS: PIPERACIL-TAZO 3.375 GM PREMIX 50 ML IV SCH ×3 (04:00→22:04)
[2016-10-13] MEDS: ACETAMINOPHEN/HYDROcodone 325 MG/5 MG TAB PO PRN ×3 (04:08→16:37)
[2016-10-13 08:00] VITALS: BP 116/58; PULSE 85; RESP 17; TEMP 97.8; O2SAT 94
[2016-10-13] MEDS: CLOPIDOGREL 75 MG TAB PO SCH (08:36)
[2016-10-13] MEDS: DOCUSATE SODIUM 50 MG/SENNA 8.6 MG TAB PO SCH ×2 (08:36→22:05)
[2016-10-13] MEDS: POLYETHYLENE GLYCOL 17 GM PKG PO SCH (08:36)
[2016-10-13] MEDS: LACTOBACILLUS ACIDOPHILUS TAB PO SCH ×3 (08:36→17:50)
[2016-10-13] MEDS: SODIUM CHLORIDE 0.9% FLUSH 10 ML FLUSH IV FLUSH SCH ×2 (08:37→22:05)
[2016-10-13 11:34] VITALS: O2SAT 96
[2016-10-13 11:55] LABS: AUTOMATED NEUTROPHIL # 6.7 TH/MM3 (1.8-7.7); BASOPHIL # 0.1 TH/MM3 (0-0.2); BASOPHIL % 0.6 % (0.0-2.0); EOSINOPHIL # 0.4 TH/MM3 (0-0.4); EOSINOPHIL % 3.9 % (0.0-4.0); HEMATOCRIT 30.4 % (35.0-46.0); HEMO FLAGS DIFF FINAL; LYMPH % 17.9 % (9.0-44.0); LYMPHOCYTE # 1.8 TH/MM3 (1.0-4.8); MEAN CORPUSCULAR HEMOGLOBIN 27.2 PG (27.0-34.0); MEAN CORPUSCULAR HGB CONC 33.6 % (32.0-36.0); MONO % 10.8 % (0.0-8.0); NEUT % 66.8 % (16.0-70.0); PLATELET COUNT 293 TH/MM3 (150-450); RED BLOOD COUNT 3.75 MIL/MM3 (4.00-5.30); RED CELL DISTRIBUTION WIDTH 14.1 % (11.6-17.2); WHITE BLOOD COUNT 10.1 TH/MM3 (4.0-11.0)
[2016-10-13 12:00] VITALS: BP 136/61; PULSE 98; RESP 18; TEMP 98.2; O2SAT 94
--- NOTE | 2016-10-13 13:42 | MP ---
cc: CARMELA MOSCOSO MD DATE OF SURGERY: 10/11/2016 PREOPERATIVE DIAGNOSIS Pseudoaneurysm of the right external iliac/common femoral artery. POSTOPERATIVE DIAGNOSIS Pseudoaneurysm of the right external iliac artery with extension and a tear into the common femoral artery plus subcutaneous fluid collection in the right groin. OPERATIVE PROCEDURE Exploration of the right groin, isolation of the common femoral and external iliac arteries, repair of the artery with a saphenous vein patch. SURGEON Ava. ANESTHESIA General. ESTIMATED BLOOD LOSS 400 cc. DETAILS OF PROCEDURE The patient is prepped and draped in usual fashion. The right inguinal incision is made and deepened down through the subcutaneous tissue and Ashwini's fascia. On the way down there is a collection of turbid grayish material measuring about two inches in diameter. The tissue around it appears to be inflamed and sort of grungy and very friable. The fluid is of course cultured and then evacuated. The wound is irrigated with copious amounts of saline. The incision is now deepened further down and again this whole thing appears to be very inflamed, possibly infected. Finally the vascular sheath is reached. Weitlaner and Chau retractors are placed and with a right angle the tissue around the common femoral artery is a very carefully dissected and then a vessel loop placed distally. Now the proximal extension is soft. There is a good pulse in the vessel proximally and very carefully the right angle is placed under the inguinal ligament and this one is transected allowing retraction further up. It is very obvious at this point that the patient has a clot which suddenly bleeds. I used my left hand to hold this vessel compressed and then worked my way up above the level of this vessel into the external iliac artery to isolate a portion of the external iliac artery. Once this was isolated another vessel loop is placed around it proximally and now we have nice vascular control. Once the proximal control is obtained the patient is given 5000 units of heparin and then a Satinsky clamp is placed proximally and a profunda clamp distally allowing control of the vessel. The deep femoral artery is now still bleeding and a vessel loop is now placed around the deep femoral artery and another profunda clamp placed on this. This isolates the area completely. The vessel is now exposed. It is noted that there is a tear in the vessel measuring about 6-7 mm in length. It is very grungy and inflamed appearing. Debrided with Chaves scissors and then extended proximally and distally for about 5 mm to allow inspection of the inside of the vessel. Some of the devitalized inflamed material is now debrided and the decision is made to place a patch on the vessel because primary repair would certainly narrow down the vessel and cause hemodynamic problems. Due to inflammatory changes in the right groin a left groin saphenous vein is chosen. A small incision is made in the left groin and deepened down to the saphenous vein. Then the vein is isolated to about 2 inches below the saphenofemoral junction. Small tributaries are ligated with 2-0 silks and divided and then saphenous vein is taken off the saphenofemoral junction by placing a profunda clamp on it, cutting it off with an 11 blade and then oversewing the remaining vein with 5-0 Prolene. The profunda clamp is released and there is no bleeding. The vein is now dissected about 2-3 inches down and then ligated and this segment of the vein is now used for the repair. The vein is opened longitudinally, washed out and then tailored. It is sewn into the artery with running 6-0 Prolene and once done blood flow is reestablished. A few more stitches are placed to control small bleeds. The area is irrigated with copious amounts of saline and then some FloSeal placed over the vessel. A JOSE ALFREDO drain is inserted in the incision and more irrigation is used. After about a liter of irrigation the incision is closed with 0 Vicryl in layers and then skin is approximated with haider. The patient tolerated the procedure well and taken out of the operating room in stable condition with excellent distal palpable pulses. Carmela SAWYER /5:36 PM /1:30 PM
[2016-10-13 16:00] VITALS: BP 128/57; PULSE 88; RESP 17; TEMP 100.5; O2SAT 95
--- NOTE | 2016-10-13 16:09 | HHI.PR ---
Subjective Remarks Pt feeling much better. Pain is better controlled. Denies any CP/SOB/N/V tolerating norco better compared to percocets Objective Vitals Vital Signs Date Time Temp Pulse Resp B/P Pulse Ox O2 Delivery O2 Flow Rate FiO2 10/13/16 12:00 98.2 98 18 136/61 94 10/13/16 11:34 96 10/13/16 09:36 18 10/13/16 08:00 97.8 85 17 116/58 94 10/12/16 23:58 98.6 88 18 114/55 98 10/12/16 20:15 98.0 94 17 141/64 96 I/O 10/12/16 10/12/16 10/12/16 10/13/16 10/13/16 10/13/16 07:00 15:00 23:00 07:00 15:00 23:00 Intake Total 1056 ml 940 ml 881 ml 240 ml 1150 ml Output Total 1010 ml 1315 ml 1010 ml 1200 ml 10 ml Balance 46 ml -375 ml -129 ml -960 ml 1140 ml Intake Oral 280 ml 500 ml 380 ml 240 ml 750 ml IV Total 776 ml 440 ml 501 ml 400 ml Output Urine Total 1000 ml 1300 ml 1000 ml 1200 ml Drainage Total 10 ml 15 ml 10 ml 10 ml # Bowel Movements 0 Result Diagram: 10/13/16 1100 10/12/16 0423 Imaging Last Impressions Consultation 10/11/16 0600 Signed Impressions: Service Date/Time: Tuesday, October 11, 2016 06:00 - CONCLUSION: CT guided biopsy will be attempted. Mich Bauer MD FACR Abdomen/Pelvis CT 10/10/16 0000 Signed Impressions: Service Date/Time: Monday, October 10, 2016 13:24 - CONCLUSION: 1. There is nonspecific edema and/or inflammatory changes in the subcutaneous soft tissues in the right inguinal area. 2. There is a small 1.2 cm fluid collection just inside the peritoneal cavity adjacent to the anterior right iliac wing. This could be a small hematoma versus inflammatory process/small abscess. This finding needs to be correlated with patient's physical exam, clinical history and laboratory values such as patient's white count. 3. Several stable nonspecific pulmonary nodules are again demonstrated in the right lung base. Toby Bateman MD ADDENDUM: The above was reviewed. I have the technologist performed thin section and multiplanar reconstructions to evaluate the right external iliac at the junction of the common femoral. There is irregularity of the vessel at this level with suggestion of a small, 6 mm wide neck pseudoaneurysm. This is positioned at the level of the inguinal ligament. The wide neck I believe precludes percutaneous thrombin embolization and I believe the lesion is too low for a covered stent. Discussed the case with Dr. Escalante from vascular surgery. We feel the most prudent approach is surgical repair at this juncture. Eren Seay MD Objective Remarks GENERAL: Pleasant lady in no acute distress. SKIN: Dressing over the right groin with drain in place (serosanguineous fluid noted) CARDIOVASCULAR: Regular rate and rhythm. No murmur appreciated. RESPIRATORY: No accessory muscle use. Clear to auscultation. Breath sounds equal bilaterally. GASTROINTESTINAL: Abdomen soft, nondistended. MUSCULOSKELETAL: No obvious deformities. No edema. Pedal pulses palpable. NEUROLOGICAL: Awake and alert. Motor grossly within normal limits. Normal speech. 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 The patient has been developing increased abdominal pain at the site. CT of the abdomen and pelvis showed: There is nonspecific edema and/or inflammatory changes in the subcutaneous soft tissues in the right inguinal area ; There is a small 1.2 cm fluid collection just inside the peritoneal cavity adjacent to the anterior right iliac wing, This could be a small hematoma versus inflammatory process/small abscess. - IR consulted and Discussed with Dr. Alvarado who evaluated patient and she is currently status post exp. of right groin, isolation of common femoral and external iliac art. repair of the art w saphenous vein patch pod 2 -On vancomycin, clinda and Zosyn. Infectious disease following. Appreciate recommendations -Pain better controlled w [place] as needed and when necessary IV morphine for breakthrough pain - IV fluids. Lung mass Currently being worked up. She has a significant smoking history. - Dr. Galvan following and has discussed case with IR for possible CT-guided biopsy - oxygen and nebs as needed. Acute renal insufficiency, improving creatine 1.3-->0.97 Unsure of etiology. - Continue with IV fluids and follow BMP. - Avoid nephrotoxic agents. Tachycardia/ hypertension, resolved Likely secondary to pain. - Pain control. - IV fluids. - Vasotec if needed. Hyperglycemia, resolved No history of diabetes. Possibly a stress reaction. - Hemoglobin A1c 5.5. Discharge Planning ID to make final Abx recs once cultures finalized vasc sx also following, awaiting final recs Nayla Collazo MD Oct 13, 2016 16:09
--- NOTE | 2016-10-13 16:34 | HHI.IDPN ---
Subjective Subjective Remarks doing well afebrile Antibiotics zosyn vanco clinda Allergies: Coded Allergies: Codeine (Verified Allergy, Severe, 10/10/16) Objective . Vital Signs Date Time Temp Pulse Resp B/P Pulse Ox O2 Delivery O2 Flow Rate FiO2 10/13/16 12:00 98.2 98 18 136/61 94 10/13/16 11:34 96 10/13/16 09:36 18 10/13/16 08:00 97.8 85 17 116/58 94 10/12/16 23:58 98.6 88 18 114/55 98 10/12/16 20:15 98.0 94 17 141/64 96 10/12/16 10/12/16 10/13/16 14:59 22:59 06:59 Intake Total 940 ml 881 ml 240 ml Output Total 1315 ml 1010 ml 1200 ml Balance -375 ml -129 ml -960 ml Intake Oral 500 ml 380 ml 240 ml IV Total 440 ml 501 ml Output Urine Total 1300 ml 1000 ml 1200 ml Drainage Total 15 ml 10 ml # Bowel Movements 0 . Laboratory Tests Test 10/12/16 10/13/16 04:23 11:00 White Blood Count 11.1 TH/MM3 10.1 TH/MM3 Red Blood Count 3.96 MIL/MM3 3.75 MIL/MM3 Hemoglobin 10.7 GM/DL 10.2 GM/DL Hematocrit 32.0 % 30.4 % Mean Corpuscular Volume 80.6 FL 81.0 FL Mean Corpuscular Hemoglobin 27.1 PG 27.2 PG Mean Corpuscular Hemoglobin 33.6 % 33.6 % Concent Red Cell Distribution Width 13.8 % 14.1 % Platelet Count 278 TH/MM3 293 TH/MM3 Mean Platelet Volume 8.1 FL 7.9 FL Neutrophils (%) (Auto) 80.1 % 66.8 % Lymphocytes (%) (Auto) 13.3 % 17.9 % Monocytes (%) (Auto) 6.1 % 10.8 % Eosinophils (%) (Auto) 0.0 % 3.9 % Basophils (%) (Auto) 0.5 % 0.6 % Neutrophils # (Auto) 8.9 TH/MM3 6.7 TH/MM3 Lymphocytes # (Auto) 1.5 TH/MM3 1.8 TH/MM3 Monocytes # (Auto) 0.7 TH/MM3 1.1 TH/MM3 Eosinophils # (Auto) 0.0 TH/MM3 0.4 TH/MM3 Basophils # (Auto) 0.1 TH/MM3 0.1 TH/MM3 CBC Comment DIFF FINAL DIFF FINAL Differential Comment Laboratory Tests Test 10/12/16 04:23 Sodium Level 139 MEQ/L Potassium Level 4.1 MEQ/L Chloride Level 106 MEQ/L Carbon Dioxide Level 25.0 MEQ/L Anion Gap 8 MEQ/L Blood Urea Nitrogen 10 MG/DL Creatinine 0.97 MG/DL Estimat Glomerular Filtration 58 ML/MIN Rate Random Glucose 151 MG/DL Calcium Level 8.9 MG/DL Total Bilirubin 0.2 MG/DL Aspartate Amino Transf 12 U/L (AST/SGOT) Alanine Aminotransferase 12 U/L (ALT/SGPT) Alkaline Phosphatase 80 U/L Total Protein 7.1 GM/DL Albumin 2.5 GM/DL Microbiology Date/Time Procedure Status Source Growth 10/11/16 11:15 Gram Stain - Final Resulted Fluid Other 10/11/16 11:15 Body Fluid Culture - Preliminary Resulted Fluid Other NO GROWTH IN 48 HOURS. 10/11/16 11:15 Acid Fast Stain - Final Resulted Fluid Other NO ACID FAST BACILLI SEEN 10/11/16 11:15 Mycobacterial Culture Resulted Fluid Other Pending 10/11/16 11:15 Fungal Smear - Final Resulted Fluid Other NO FUNGAL ELEMENTS SEEN. 10/11/16 11:15 Fungal Culture Resulted Fluid Other Pending 10/11/16 11:15 Gram Stain - Final Resulted Fluid Other 10/11/16 11:15 Body Fluid Culture - Preliminary Resulted Fluid Other NO GROWTH IN 48 HOURS. 10/11/16 11:15 Acid Fast Stain - Final Resulted Fluid Other NO ACID FAST BACILLI SEEN 10/11/16 11:15 Mycobacterial Culture Resulted Fluid Other Pending 10/11/16 11:15 Fungal Smear - Final Resulted Fluid Other NO FUNGAL ELEMENTS SEEN. 10/11/16 11:15 Fungal Culture Resulted Fluid Other Pending Imaging Last Impressions Consultation 10/11/16 0600 Signed Impressions: Service Date/Time: Tuesday, October 11, 2016 06:00 - CONCLUSION: CT guided biopsy will be attempted. Mich Bauer MD FACR Abdomen/Pelvis CT 10/10/16 0000 Signed Impressions: Service Date/Time: Monday, October 10, 2016 13:24 - CONCLUSION: 1. There is nonspecific edema and/or inflammatory changes in the subcutaneous soft tissues in the right inguinal area. 2. There is a small 1.2 cm fluid collection just inside the peritoneal cavity adjacent to the anterior right iliac wing. This could be a small hematoma versus inflammatory process/small abscess. This finding needs to be correlated with patient's physical exam, clinical history and laboratory values such as patient's white count. 3. Several stable nonspecific pulmonary nodules are again demonstrated in the right lung base. Toby Bateman MD ADDENDUM: The above was reviewed. I have the technologist performed thin section and multiplanar reconstructions to evaluate the right external iliac at the junction of the common femoral. There is irregularity of the vessel at this level with suggestion of a small, 6 mm wide neck pseudoaneurysm. This is positioned at the level of the inguinal ligament. The wide neck I believe precludes percutaneous thrombin embolization and I believe the lesion is too low for a covered stent. Discussed the case with Dr. Escalante from vascular surgery. We feel the most prudent approach is surgical repair at this juncture. Eren Seay MD Physical Exam CONSTITUTIONAL/GENERAL: This is an adequately nourished patient, in no apparent distress. TUBES/LINES/DRAINS: SKIN: No jaundice, rashes, STATUS LOCALIS: R groing incision closed,JOSE ALFREDO in place with cloudy serosang dc no induration ersolving ecchymosis Assessment & Plan Remarks R femoral artery pseudoaneurism, post procedural Status post repair of the right external iliac /common femoral artery with vein patch 10/12/16 Initially suspected abscess, infection of the pseudoanurism - less likleuy with neg clx and no fever - clx P; so far no growth @ 48 hrs - dc clinda cont zosyn, vanco d/c all abx if clx remain negative - final dw Jayne Chacko MD Oct 13, 2016 16:34
--- NOTE | 2016-10-13 17:09 | PD.CAR.PN ---
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 Seay. This is indeed just proximal to the inguinal ligament i.e. in the very distal external iliac artery and placing stent here will be completely inappropriate because stent would kink and potentially obstruct not only the femoral artery but also deep femoral artery leading to disaster Therefore I will take patient to the operating room and repair the external iliac/femoral artery in open fashion tomorrow Full consult to abdirashid Alvarado 10/12/16 Status post repair of the right external iliac /common femoral artery with vein patch Incision is clean and dry JOSE ALFREDO drainage about 70 cc over last 24 hours I will leave the JOSE ALFREDO for another day and probably remove it tomorrow Patient can be out of bed and can ambulate Preliminary cultures are negative the patient should've definitely remain on antibiotics for the duration at least 2 weeks 10/13/16 Patient doing really well great distal pulses Wound VAC has been removed incision is clean and dry DC JOSE ALFREDO Patient is ambulating with ease All cultures have been negative as far as the collection in the right groin is concerned All things equal we'll DC patient tomorrow Objective: Vital Signs Date Time Temp Pulse Resp B/P Pulse Ox O2 Delivery O2 Flow Rate FiO2 10/13/16 16:00 100.5 88 17 128/57 95 10/13/16 12:00 98.2 98 18 136/61 94 10/13/16 11:34 96 10/13/16 09:36 18 10/13/16 08:00 97.8 85 17 116/58 94 10/12/16 23:58 98.6 88 18 114/55 98 10/12/16 20:15 98.0 94 17 141/64 96 Labs: Laboratory Tests Test 10/13/16 11:00 White Blood Count 10.1 TH/MM3 (4.0-11.0) Red Blood Count 3.75 MIL/MM3 (4.00-5.30) Hemoglobin 10.2 GM/DL (11.6-15.3) Hematocrit 30.4 % (35.0-46.0) Mean Corpuscular Volume 81.0 FL (80.0-100.0) Mean Corpuscular Hemoglobin 27.2 PG (27.0-34.0) Mean Corpuscular Hemoglobin 33.6 % Concent (32.0-36.0) Red Cell Distribution Width 14.1 % (11.6-17.2) Platelet Count 293 TH/MM3 (150-450) Mean Platelet Volume 7.9 FL (7.0-11.0) Neutrophils (%) (Auto) 66.8 % (16.0-70.0) Lymphocytes (%) (Auto) 17.9 % (9.0-44.0) Monocytes (%) (Auto) 10.8 % (0.0-8.0) Eosinophils (%) (Auto) 3.9 % (0.0-4.0) Basophils (%) (Auto) 0.6 % (0.0-2.0) Neutrophils # (Auto) 6.7 TH/MM3 (1.8-7.7) Lymphocytes # (Auto) 1.8 TH/MM3 (1.0-4.8) Monocytes # (Auto) 1.1 TH/MM3 (0-0.9) Eosinophils # (Auto) 0.4 TH/MM3 (0-0.4) Basophils # (Auto) 0.1 TH/MM3 (0-0.2) CBC Comment DIFF FINAL Differential Comment Result Diagram: 10/13/16 1100 10/12/16 0423 Joni Escalante MD Oct 13, 2016 17:09
[2016-10-13 18:04] VITALS: O2SAT 95
--- NOTE | 2016-10-13 18:41 | HHI.PR ---
Subjective Remarks 61 YOWF with perihilar mass, MDS,S/P BM transplant Had repair of right groin Pseudo anerysm Feels much better has pain in groin on getting up No Fever Objective Vital Signs Vital Signs Date Time Temp Pulse Resp B/P Pulse Ox O2 Delivery O2 Flow Rate FiO2 10/13/16 18:04 95 21 10/13/16 16:00 100.5 88 17 128/57 95 10/13/16 12:00 98.2 98 18 136/61 94 10/13/16 11:34 96 10/13/16 09:36 18 10/13/16 08:00 97.8 85 17 116/58 94 10/12/16 23:58 98.6 88 18 114/55 98 10/12/16 20:15 98.0 94 17 141/64 96 I/O 10/12/16 10/12/16 10/12/16 10/13/16 10/13/16 10/13/16 06:59 14:59 22:59 06:59 14:59 22:59 Intake Total 1056 ml 940 ml 881 ml 240 ml 1150 ml Output Total 1010 ml 1315 ml 1010 ml 1200 ml 1085 ml Balance 46 ml -375 ml -129 ml -960 ml 65 ml Intake Oral 280 ml 500 ml 380 ml 240 ml 750 ml IV Total 776 ml 440 ml 501 ml 400 ml Output Urine Total 1000 ml 1300 ml 1000 ml 1200 ml 1075 ml Drainage Total 10 ml 15 ml 10 ml 10 ml # Bowel Movements 0 0 Result Diagram: 10/13/16 1100 10/12/16 0423 Objective Remarks GENERAL: MBMN Wm,NAD SKIN: Warm and dry. HEAD: Normocephalic. EYES: No scleral icterus. No injection or drainage. NECK: Supple, trachea midline. No JVD or lymphadenopathy. CARDIOVASCULAR: Regular rate and rhythm without murmurs, gallops, or rubs. RESPIRATORY: Breath sounds equal bilaterally. No accessory muscle use. GASTROINTESTINAL: Abdomen soft, non-tender, nondistended. MUSCULOSKELETAL: No cyanosis, or edema. has VAC device in right groin BACK: Nontender without obvious deformity. No CVA tenderness. A/P Assessment and Plan Right Perihilar mass Right groin Pseudo aneurysm repair MDS S/P BM transplant PLAN: Cont Abx Zosyn and Vanco per ID Stable on RA Aneja,Francisco Javier Dev MD Oct 13, 2016 18:41
[2016-10-13 20:45] VITALS: BP 113/56; PULSE 86; RESP 18; TEMP 99.5; O2SAT 94
[2016-10-13] MEDS: ACETAMINOPHEN/HYDROcodone 325 MG/10 MG TAB PO PRN (22:05)
[2016-10-14] VITALS: BP 120/58; PULSE 80; RESP 18; TEMP 98.9; O2SAT 94
[2016-10-14] MEDS: PIPERACIL-TAZO 3.375 GM PREMIX 50 ML IV SCH (03:09)
[2016-10-14] MEDS: VANCOMYCIN INJ 1,000 MG in SODIUM CHLOR 0.9% 250 ML INJ 250 ML IV SCH (05:20)
[2016-10-14] MEDS: ACETAMINOPHEN/HYDROcodone 325 MG/5 MG TAB PO PRN ×2 (05:20→11:07)
--- NOTE | 2016-10-14 07:15 | HHI.PR ---
Subjective Remarks Patient seen and examined this morning. Her vitals are stable she's afebrile. MAXIMUM TEMPERATURE last night of 100.5. Feels well with no complaints. Has not required morphine. Denies CP or SOB. Feels some weakness of right thigh. Is ambulatory without issues. Tolerating diet. Anxious to go home. Objective Vital Signs Date Time Temp Pulse Resp B/P Pulse Ox O2 Delivery O2 Flow Rate FiO2 10/14/16 00:00 98.9 80 18 120/58 94 10/13/16 20:45 99.5 86 18 113/56 94 10/13/16 18:04 95 21 10/13/16 16:00 100.5 88 17 128/57 95 10/13/16 12:00 98.2 98 18 136/61 94 10/13/16 11:34 96 10/13/16 09:36 18 10/13/16 08:00 97.8 85 17 116/58 94 I/O 10/13/16 10/13/16 10/13/16 10/14/16 10/14/16 10/14/16 07:00 15:00 23:00 07:00 15:00 23:00 Intake Total 240 ml 1150 ml 380 ml 627 ml Output Total 1200 ml 1085 ml 600 ml Balance -960 ml 65 ml -220 ml 627 ml Intake Oral 240 ml 750 ml 380 ml 380 ml IV Total 400 ml 247 ml Output Urine Total 1200 ml 1075 ml 600 ml Drainage Total 10 ml # Voids 3 # Bowel Movements 0 Result Diagram: 10/13/16 1100 10/12/16 0423 Imaging Last Impressions Consultation 10/11/16 0600 Signed Impressions: Service Date/Time: Tuesday, October 11, 2016 06:00 - CONCLUSION: CT guided biopsy will be attempted. Mich Bauer MD FACR Abdomen/Pelvis CT 10/10/16 0000 Signed Impressions: Service Date/Time: Monday, October 10, 2016 13:24 - CONCLUSION: 1. There is nonspecific edema and/or inflammatory changes in the subcutaneous soft tissues in the right inguinal area. 2. There is a small 1.2 cm fluid collection just inside the peritoneal cavity adjacent to the anterior right iliac wing. This could be a small hematoma versus inflammatory process/small abscess. This finding needs to be correlated with patient's physical exam, clinical history and laboratory values such as patient's white count. 3. Several stable nonspecific pulmonary nodules are again demonstrated in the right lung base. Toby Bateman MD ADDENDUM: The above was reviewed. I have the technologist performed thin section and multiplanar reconstructions to evaluate the right external iliac at the junction of the common femoral. There is irregularity of the vessel at this level with suggestion of a small, 6 mm wide neck pseudoaneurysm. This is positioned at the level of the inguinal ligament. The wide neck I believe precludes percutaneous thrombin embolization and I believe the lesion is too low for a covered stent. Discussed the case with Dr. Escalante from vascular surgery. We feel the most prudent approach is surgical repair at this juncture. Eren Seay MD Objective Remarks GENERAL: sitting in chair, well appearing, nad SKIN: Warm and dry. right groin incision with haider, c/d/i, bandage just inferior to this with scant blood. HEAD: Normocephalic. EYES: No scleral icterus. No injection or drainage. NECK: Supple, trachea midline. No JVD or lymphadenopathy. CARDIOVASCULAR: Regular rate and rhythm without murmurs, gallops, or rubs. RESPIRATORY: Breath sounds equal bilaterally. No accessory muscle use. GASTROINTESTINAL: Abdomen soft, non-tender, nondistended. MUSCULOSKELETAL: No cyanosis, or edema. BACK: Nontender without obvious deformity. No CVA tenderness. 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 The patient has been developing increased abdominal pain at the site. - CT of the abdomen and pelvis showed: There is nonspecific edema and/or inflammatory changes in the subcutaneous soft tissues in the right inguinal area ; There is a small 1.2 cm fluid collection just inside the peritoneal cavity adjacent to the anterior right iliac wing, This could be a small hematoma versus inflammatory process/small abscess. - IR consulted and Discussed with Dr. Alvarado who evaluated patient and she is currently status post exp. of right groin, isolation of common femoral and external iliac art. repair of the art w saphenous vein patch pod 3. - Per infectious disease, continue Zosyn and pain. All cultures remain negative May DC all antibiotics. All cultures have been negative. -Pain better controlled w [place] as needed and when necessary IV morphine for breakthrough pain - IV fluids. Lung mass Currently being worked up. She has a significant smoking history. - Dr. Galvan following CT-guided biopsy as an outpatient. - oxygen and nebs as needed. Acute renal insufficiency, RESOLVED Unsure of etiology. - Avoid nephrotoxic agents. Tachycardia/ hypertension, resolved Likely secondary to pain. - Pain control. - IV fluids. - Vasotec if needed. Hyperglycemia, resolved No history of diabetes. Possibly a stress reaction. - Hemoglobin A1c 5.5. Discharge Planning D/C pending all cultures negative: fungal and mycobaterial culture pending. Likely today or tomorrow. Problem Qualifiers (1) Fluid collection at surgical site: Qualified Code: T88.8XXA - Fluid collection at surgical site, initial encounter Anjali Umana MD R3 Oct 14, 2016 07:15
[2016-10-14] MEDS ORDERED: HYDR-3583 PO (07:29)
[2016-10-14] MEDS ORDERED: SENN1TAB PO (07:29)
[2016-10-14] MEDS ORDERED: PLAV75TA29 PO (07:29)
--- NOTE | 2016-10-14 07:31 | HHI.DCPOC ---
Discharge Care Plan Diagnosis: (1) Lung mass (2) Splenic artery aneurysm (3) Fluid collection at surgical site Goals to Promote Your Health * To prevent worsening of your condition and complications * To maintain your health at the optimal level Directions to Meet Your Goals Take your medications as prescribed Follow your dietary instruction Follow activity as directed Keep your appointments as scheduled Take your immunizations and boosters as scheduled If your symptoms worsen call your PCP, if no PCP go to Urgent Care Center or Emergency Room Smoking is Dangerous to Your Health. Avoid second hand smoke Call the 24-hour hour crisis hotline for domestic abuse at Anjali Umana MD R3 Oct 14, 2016 07:31
[2016-10-14 08:00] VITALS: BP 113/56; PULSE 99; RESP 16; TEMP 97.4; O2SAT 96
[2016-10-14] MEDS: POLYETHYLENE GLYCOL 17 GM PKG PO SCH (09:00)
[2016-10-14] MEDS: SODIUM CHLORIDE 0.9% FLUSH 10 ML FLUSH IV FLUSH SCH (09:29)
[2016-10-14] MEDS: DOCUSATE SODIUM 50 MG/SENNA 8.6 MG TAB PO SCH (09:29)
[2016-10-14] MEDS: CLOPIDOGREL 75 MG TAB PO SCH (09:29)
[2016-10-14] MEDS: LACTOBACILLUS ACIDOPHILUS TAB PO SCH (09:29)
[2016-10-14] MEDS ORDERED: AUGM875T3 PO (10:15)
[2016-10-14 10:17] VITALS: O2SAT 95
--- NOTE | 2016-10-14 11:38 | PD.CAR.PN ---
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 Seay. This is indeed just proximal to the inguinal ligament i.e. in the very distal external iliac artery and placing stent here will be completely inappropriate because stent would kink and potentially obstruct not only the femoral artery but also deep femoral artery leading to disaster Therefore I will take patient to the operating room and repair the external iliac/femoral artery in open fashion tomorrow Full consult to abdirashid Alvarado 10/12/16 Status post repair of the right external iliac /common femoral artery with vein patch Incision is clean and dry JOSE ALFREDO drainage about 70 cc over last 24 hours I will leave the JOSE ALFREDO for another day and probably remove it tomorrow Patient can be out of bed and can ambulate Preliminary cultures are negative the patient should've definitely remain on antibiotics for the duration at least 2 weeks 10/13/16 Patient doing really well great distal pulses Wound VAC has been removed incision is clean and dry DC JOSE ALFREDO Patient is ambulating with ease All cultures have been negative as far as the collection in the right groin is concerned All things equal we'll DC patient tomorrow 10/14/16 Incisions clean and dry Patient is ambulating with ease Excellent distal pulses Discharged today on Augmentin by mouth Follow-up with my office in 2 weeks patient needs to make appointment Needs to wash wounds with soap and water pad dry and dressed dry daily Objective: Vital Signs Date Time Temp Pulse Resp B/P Pulse Ox O2 Delivery O2 Flow Rate FiO2 10/14/16 08:00 97.4 99 16 113/56 96 10/14/16 00:00 98.9 80 18 120/58 94 10/13/16 20:45 99.5 86 18 113/56 94 10/13/16 18:04 95 21 10/13/16 16:00 100.5 88 17 128/57 95 10/13/16 12:00 98.2 98 18 136/61 94 Result Diagram: 10/13/16 1100 10/12/16 0423 Joni Escalante MD Oct 14, 2016 11:38
[2016-10-14 12:00] VITALS: BP 115/58; PULSE 81; RESP 16; TEMP 98.6; O2SAT 96
--- NOTE | 2016-10-14 12:08 | HHI.DS ---
Discharge Summary Admission Date October 11, 2016 at 08:31 Discharge Date: Oct 14, 2016 Admitting Diagnosis Post op complications Consultants Vascular surgery Infectious disease CBC/BMP: 10/13/16 1100 10/12/16 0423 Significant Findings Laboratory Tests Test 10/12/16 10/13/16 04:23 11:00 White Blood Count 11.1 TH/MM3 (4.0-11.0) Red Blood Count 3.96 MIL/MM3 3.75 MIL/MM3 (4.00-5.30) (4.00-5.30) Hemoglobin 10.7 GM/DL 10.2 GM/DL (11.6-15.3) (11.6-15.3) Hematocrit 32.0 % 30.4 % (35.0-46.0) (35.0-46.0) Neutrophils (%) (Auto) 80.1 % (16.0-70.0) Neutrophils # (Auto) 8.9 TH/MM3 (1.8-7.7) Estimat Glomerular Filtration 58 ML/MIN (>89) Rate Random Glucose 151 MG/DL (74-106) Aspartate Amino Transf 12 U/L (15-37) (AST/SGOT) Albumin 2.5 GM/DL (3.4-5.0) Monocytes (%) (Auto) 10.8 % (0.0-8.0) Monocytes # (Auto) 1.1 TH/MM3 (0-0.9) Imaging Last Impressions Consultation 10/11/16 0600 Signed Impressions: Service Date/Time: Tuesday, October 11, 2016 06:00 - CONCLUSION: CT guided biopsy will be attempted. Mich Bauer MD FACR Abdomen/Pelvis CT 10/10/16 0000 Signed Impressions: Service Date/Time: Monday, October 10, 2016 13:24 - CONCLUSION: 1. There is nonspecific edema and/or inflammatory changes in the subcutaneous soft tissues in the right inguinal area. 2. There is a small 1.2 cm fluid collection just inside the peritoneal cavity adjacent to the anterior right iliac wing. This could be a small hematoma versus inflammatory process/small abscess. This finding needs to be correlated with patient's physical exam, clinical history and laboratory values such as patient's white count. 3. Several stable nonspecific pulmonary nodules are again demonstrated in the right lung base. Toby Bateman MD ADDENDUM: The above was reviewed. I have the technologist performed thin section and multiplanar reconstructions to evaluate the right external iliac at the junction of the common femoral. There is irregularity of the vessel at this level with suggestion of a small, 6 mm wide neck pseudoaneurysm. This is positioned at the level of the inguinal ligament. The wide neck I believe precludes percutaneous thrombin embolization and I believe the lesion is too low for a covered stent. Discussed the case with Dr. Escalante from vascular surgery. We feel the most prudent approach is surgical repair at this juncture. 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 The patient has been developing increased abdominal pain at the site. - CT of the abdomen and pelvis showed: There is nonspecific edema and/or inflammatory changes in the subcutaneous soft tissues in the right inguinal area ; There is a small 1.2 cm fluid collection just inside the peritoneal cavity adjacent to the anterior right iliac wing, This could be a small hematoma versus inflammatory process/small abscess. - IR consulted and Discussed with Dr. Alvarado who evaluated patient and she is currently status post exp. of right groin, isolation of common femoral and external iliac art. repair of the art w saphenous vein patch pod 3. - Per infectious disease, continue Zosyn and Vanc. All cultures remain negative May DC all antibiotics. All cultures have been negative. -Pain better controlled w [place] as needed and when necessary IV morphine for breakthrough pain - IV fluids. Lung mass Currently being worked up. She has a significant smoking history. - Dr. Galvan following CT-guided biopsy as an outpatient. - oxygen and nebs as needed. Acute renal insufficiency, RESOLVED Unsure of etiology. - Avoid nephrotoxic agents. Tachycardia/ hypertension, resolved Likely secondary to pain. - Pain control. - IV fluids. - Vasotec if needed. Hyperglycemia, resolved No history of diabetes. Possibly a stress reaction. - Hemoglobin A1c 5.5. Cultures were negative 3 days. The patient was discharged on Augmentin per Dr. Alvarado. She'll follow up Dr. Alvarado's office in 2 weeks. She can follow-up with her reconditioning associate regarding the pulmonary nodule. Pt Condition on Discharge: Stable Discharge Disposition: Discharge Home Discharge Instructions DIET: Follow Instructions for: Heart Healthy Diet Activities you can perform: Weight Bearing as Serina Follow up Referrals: PCP Follow-up - 1 Week Pulmonology - 1 Week with Francisco Javier Galvan MD Vascular Surgery - 2 Weeks with Joni Escalante MD New Medications: Amoxicillin-Clavulanate (Augmentin) 875-125 Mg Tab 1 TAB PO BID Infection #20 Ref 0 TAB Clopidogrel (Plavix) 75 Mg Tab 75 MG PO DAILY #30 TAB Hydrocodone-Acetaminophen (Hydrocodone-Acetaminophen) 10-325 mg Tab 1 TAB PO Q6H PRN PAIN SCALE 7 TO 10 #30 TAB Sennosides-Docusate Sodium (Senna Plus 8.6-50 mg) 1 Tab Tab 1 TAB PO BID #30 TAB Anjali Umana MD R3 Oct 14, 2016 12:08
--- NOTE | 2016-10-14 12:27 | HHI.PR ---
Subjective Remarks 61 YOWF with perihilar mass, MDS,S/P BM transplant Had repair of right groin Pseudo anerysm Feels much better has pain in groin on getting up No Fever Objective Vital Signs Vital Signs Date Time Temp Pulse Resp B/P Pulse Ox O2 Delivery O2 Flow Rate FiO2 10/14/16 12:00 98.6 81 16 115/58 96 10/14/16 08:00 97.4 99 16 113/56 96 10/14/16 00:00 98.9 80 18 120/58 94 10/13/16 20:45 99.5 86 18 113/56 94 10/13/16 18:04 95 21 10/13/16 16:00 100.5 88 17 128/57 95 I/O 10/13/16 10/13/16 10/13/16 10/14/16 10/14/16 10/14/16 07:00 15:00 23:00 07:00 15:00 23:00 Intake Total 240 ml 1150 ml 380 ml 627 ml Output Total 1200 ml 1085 ml 600 ml Balance -960 ml 65 ml -220 ml 627 ml Intake Oral 240 ml 750 ml 380 ml 380 ml IV Total 400 ml 247 ml Output Urine Total 1200 ml 1075 ml 600 ml Drainage Total 10 ml # Voids 3 # Bowel Movements 0 Result Diagram: 10/13/16 1100 10/12/16 0423 Objective Remarks GENERAL: MBMN Wm,NAD SKIN: Warm and dry. HEAD: Normocephalic. EYES: No scleral icterus. No injection or drainage. NECK: Supple, trachea midline. No JVD or lymphadenopathy. CARDIOVASCULAR: Regular rate and rhythm without murmurs, gallops, or rubs. RESPIRATORY: Breath sounds equal bilaterally. No accessory muscle use. GASTROINTESTINAL: Abdomen soft, non-tender, nondistended. MUSCULOSKELETAL: No cyanosis, or edema. has VAC device in right groin BACK: Nontender without obvious deformity. No CVA tenderness. A/P Assessment and Plan Right Perihilar mass Right groin Pseudo aneurysm repair MDS S/P BM transplant PLAN: Cont Abx per ID Stable on RA DC plans for home Will FU in office Francisco Javier Galvan MD Oct 14, 2016 12:27
== END 2016-10-14 13:40 | disposition home or self-care (01) | DRG 908 ==
LOC: PHED 11:54 → PHEDA 16:08 → NEPHCDU 18:14 → OBSVTOIN 10-11 08:31 → N07B 10-11 09:39 → N07A 10-11 15:35
PROVIDERS: ADMIT Hospitalist; ATTEND Hospitalist
PROC: 04U Lower Arteries, Supplement (ICD-10-PCS; 2016-10-11)
PROC: 06BQ0ZZ Excision of Left Saphenous Vein, Open Approach (ICD-10-PCS; 2016-10-11)
PROC: 04UK07Z Supplement Right Femoral Artery with Autologous Tissue Substitute, Open Approach (ICD-10-PCS; principal; 2016-10-11 10:32)
DX: I97.638 Postprocedural hematoma of a circulatory system organ or structure following other circulatory system procedure (principal); I97.89 Other postprocedural complications and disorders of the circulatory system, not elsewhere classified; I72.3 Aneurysm of iliac artery; J84.10 Pulmonary fibrosis, unspecified; Z94.81 Bone marrow transplant status; L03.314 Cellulitis of groin; I72.4 Aneurysm of artery of lower extremity; N28.9 Disorder of kidney and ureter, unspecified; R91.8 Other nonspecific abnormal finding of lung field; R73.9 Hyperglycemia, unspecified; R60.0 Localized edema; D47.4 Osteomyelofibrosis; R00.0 Tachycardia, unspecified; J42 Unspecified chronic bronchitis; Y83.8 Other surgical procedures as the cause of abnormal reaction of the patient, or of later complication, without mention of misadventure at the time of the procedure; Z87.891 Personal history of nicotine dependence; Z88.5 Allergy status to narcotic agent
CPT/HCPCS: 74177; 80048; 80053; 81001; 82948; 83036; 85025; 85610; 85730; 86850; 86900; 86901; 86920; 86922; 87015; 87070; 87102; 87116; 87205; 87206; 93005; 96374; 96375; G0378; J0131; J0690; J1644; J2250; J2270; J2405; J2543; J2720; J3010; J3370; J7030; J7050; J7120; Q9967

== ENCOUNTER → 2016-11-30 | Day surgery (SDC) | payer MEDICARE ==
--- NOTE | 2016-11-29 09:23 | MH ---
cc: DESTINY LOPEZ DATE OF ADMISSION: 11/30/2016 CHIEF COMPLAINT The patient will come for bronchoscopy. HISTORY OF PRESENT ILLNESS Ms. Hilton is a pleasant 61-year-old female with history of myelodysplastic syndrome status post bone marrow transplant and ayumh-hujkng-ciqx disease. She was found to have perihilar mass. She had a repeat CT scan of the chest done which shows 7.8 x 5 cm mass in the right upper lobe bronchus. It has slightly increased in size. She also has combination of consolidation and atelectasis or a mass. She has mediastinal lymphadenopathy, some lymph nodes are stable in size while the other have increased. She has no fever or chills. No night sweats. No chest pain. PAST MEDICAL HISTORY Significant for: 1. History of chronic bronchitis. 2. Myelodysplastic syndrome status post bone marrow transplant. 3. She has agvsw-ffziib-lpzk disease in the eye and 4. The skin lesion 5. She has morphea. 6. History of pseudoaneurysm repair. MEDICATIONS She is taking Protonix and Pro-Air. SOCIAL HISTORY She has history of smoking for 30 years, one and a half pack a day which she quit in 2008. No alcohol or drug use. 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 FAMILY HISTORY She is for 36 years. She has three children, has two brothers, one with cancer of the lung. She has two sisters, one with cancer of the lung and liver. Mother with adenocarcinoma. Father with cancer of the lung. REVIEW OF SYSTEMS She denies any weight loss. No fevers, chills. No hemoptysis. PHYSICAL EXAMINATION GENERAL: Elderly female not in any acute distress. VITAL SIGNS: Blood pressure 120/64, heart rate 83, respiration 16, oxygen saturation 96%. HEENT: Examination unremarkable. NECK: Supple. JVP not raised. CHEST: Equal air entry. No rhonchi. CVS: S1, S2 normal. ABDOMEN: Benign. EXTREMITIES: No edema. IMPRESSION 1. Right lung mass concerning for inflammatory process or malignancy. 2. Granulomatous disease changes in the left hilum. 3. History of pseudoaneurysm repair. PLAN I discussed with the patient and her , she will need bronchoscopy. I explained the procedure and the complications including complication of anesthesia, pneumothorax requiring chest tube, bleeding complication due to blood vessels, lungs nerves, arrhythmia, hypoxia, which she understands well and wants to proceed with it. If bronchoscopy is nondiagnostic then she will need a CT-guided biopsy. I will schedule her for bronchoscopy at [facility]. MD JENY Vizcarra/CHRISSY /11:54 PM /9:23 AM
[~2016-11-30] VITALS: Ht 177.8 cm; Wt 72.7 kg
[~2016-11-30] MED LIST changes: +*RESP: ALBUTEROL 2.5 MG/3 ML NEB (PRN) PERIprocedural Use ONLY NEB ONE; -ALBU6.7H INH; +ALBUAER3 INH; +CHLORHEXIDINE GLUCONATE 2 % 1 PACK (2 CLOTHS) TOPICAL PRN; +DO NOT ADM ANY ANTICOAGULANT DRUGS PRN; +EPINEPHrine HCL (1:1000) 1 MG/ML VIAL E-TRACHE ONE; +FAMOTIDINE 20 MG/2 ML VIAL IV ONE; +INSULIN HUMAN REGULAR 1,000 UNITS/10 ML VIAL SQ PRN; +LACTATED RINGER'S 1000 ML IV PRN; -LEVA500T PO; +LIDOCAINE HCL 2% 50 ML VIAL ONE; +METOPROLOL TARTRATE 25 MG TAB PO PRN; +MIDAZOLAM HCL 2 MG/2 ML VIAL ONE; +OMEP40CA2 PO; +ONDANSETRON HCL 4 MG/2 ML VIAL IV PUSH ONE; +POVIDONE IODINE 5% (ANTISEPSIS KIT) 4 APPLICATIONS EACH NARE PRN; +PROPOFOL 200 MG/20 ML AMP IV ONE; +SODIUM CHLORID 0.9% 500 ML IV PRN
[2016-11-30 13:33] VITALS: BP 115/68; PULSE 86; RESP 16; TEMP 98.9; O2SAT 98
[2016-11-30 13:57] LABS: AUTOMATED NEUTROPHIL # 6.5 TH/MM3 (1.8-7.7); BASOPHIL # 0.1 TH/MM3 (0-0.2); BASOPHIL % 1.2 % (0.0-2.0); EOSINOPHIL # 0.5 TH/MM3 (0-0.4); EOSINOPHIL % 3.9 % (0.0-4.0); HEMATOCRIT 39.5 % (35.0-46.0); HEMO FLAGS DIFF FINAL; LYMPH % 33.4 % (9.0-44.0); MEAN CELL VOLUME 79.3 FL (80.0-100.0); MEAN CORPUSCULAR HGB CONC 32.8 % (32.0-36.0); MONO % 8.2 % (0.0-8.0); NEUT % 53.3 % (16.0-70.0); PLATELET COUNT 342 TH/MM3 (150-450); RED BLOOD COUNT 4.98 MIL/MM3 (4.00-5.30); RED CELL DISTRIBUTION WIDTH 15.2 % (11.6-17.2); WHITE BLOOD COUNT 12.1 TH/MM3 (4.0-11.0)
[2016-11-30 14:13] LABS: APTT (PATIENT) 29.5 SEC (24.3-30.1); PROTHROMBIN TIME - PATIENT 10.8 SEC (9.8-11.6)
--- NOTE | 2016-11-30 17:10 | RADRPT ---
EXAM DATE/TIME: 11/30/2016 16:41 [facility] COMPARISON: CHEST SINGLE AP, August 12, 2016, 4:00. INDICATIONS : Post bronchoscopy. MEDICAL HISTORY : Gastroesophageal reflux disease. Right lung mass. SURGICAL HISTORY : Tubal ligation. abdominal (pancreas) stent ENCOUNTER: Initial ACUITY: 1 day PAIN SCORE: 0/10 LOCATION: Bilateral chest FINDINGS: Redemonstration of large medial right upper lobe lung mass. No significant pneumothorax. Calcified hi lar nodes are again noted. Cardiomediastinal contours are stable. Remainder of exam is unchanged. CONCLUSION: 1. Redemonstration of large medial right upper lobe lung mass without evidence for pneumothorax follo wing bronchoscopy. Macario Alva MD on November 30, 2016 at 17:07 Board Certified Radiologist. This report was verified electronically.
[2016-11-30 17:54] VITALS: BP 109/60; PULSE 80; RESP 20; TEMP 97.7; O2SAT 95
--- NOTE | 2016-11-30 20:10 | MR ---
cc: DESTINY LOPEZ DATE: 11/30/2016. PROCEDURE: Bronchoscopy PREOPERATIVE DIAGNOSIS: Right lung mass. POSTOPERATIVE DIAGNOSIS: No endobronchial lesion seen. DESCRIPTION OF THE PROCEDURE IN DETAIL: Informed consent was obtained from the patient. The procedure and the complications including complication of anesthesia, pneumothorax requiring chest tube, bleeding complication, injury to the blood vessels, lungs, nerves, arrhythmia and she consented for the procedure. The patient was brought to the cystoscopy suite under general anesthesia, LMA tube was placed by anesthesiologist. Bronchoscopy was done through LMA tube. Vocal cords were normal. Trachea is normal. Main meg is sharp. Bronchoscope was advanced to the left upper lobe, lingula and lower lobe were visualized and all sub-segments were patent. No endobronchial mucosal lesion was seen. The bronchoscope was pulled back and advanced to the right lung and the right upper, middle and lower lobe were visualized. Small amount of mucous was suctioned. No endobronchial lesion was seen. Right upper lobe biopsy, brushings and washings were done. Two small pieces were obtained. She started bleeding significantly. The bleeding was controlled by saline and epinephrine lavage. After the bleeding was stopped, the area was inspected again. There was no more bleeding. Bronchial washings were sent for routine culture, AFB, fungal culture and cytology and brushings were sent for cytology and biopsy sent for pathology. She tolerated the procedure well. Postprocedure chest x-ray was ordered to rule out pneumothorax. MD JENY Vizcarra/JERRY /4:25 PM /8:02 PM
--- NOTE | 2016-12-06 00:03 | MH ---
cc: DORY KEITH MD, ARJUN DATE OF ADMISSION 11/30/2016 CHIEF COMPLAINT The patient will come for CT-guided right lung biopsy. HISTORY OF PRESENT ILLNESS Mrs. Hilton is a pleasant 61-year-old female with history of myelodysplastic syndrome status post bone marrow transplant and ixojr-wuoapm-wmft disease. She was found to have perihilar mass. Repeat CT scan shows increased in the size to 7.8 x 5 cm. She also has mediastinal lymphadenopathy. She recently had bronchoscopy done which was nondiagnostic. She has no cough or sputum production. No fever, chills. No night sweats. PAST MEDICAL HISTORY History of myelodysplastic syndrome, status post bone marrow transplant and djkpt-djzrum-zrpb disease. History of skin lesion which presents as morphea. History of pseudoaneurysm repair. MEDICATIONS She is takin. Prilosec. 2. ProAir. SOCIAL HISTORY She has history of smoking for 10 years, one and a half pack a day. She quit in 2008. No alcohol or drug abuse. 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 SOCIAL HISTORY She is for 36 years. She has three children. She has two brothers, one with cancer of the lung. She has two sisters, one with cancer of the lung and liver. Mother with adenocarcinoma. Father with cancer of the lung. REVIEW OF SYSTEMS She has no fever or chills. No night sweats or hemoptysis. Feels anxious. PHYSICAL EXAMINATION GENERAL: Elderly female, here with her . Not in acute distress. VITAL SIGNS: Blood pressure 122/72, heart rate 75, respirations 16, oxygen saturation 98%. HEENT: Examination unremarkable. NECK: Supple. JVP not raised. CHEST: Equal air entry. No rhonchi. CARDIOVASCULAR: S1-S2 normal. ABDOMEN: Benign. EXTREMITIES: No edema. IMPRESSION 1. Right upper lobe opacity measuring 7.8 x 5 cm concerning for consolidation or malignancy. 2. History of myeloproliferative disorder status post bone marrow transplant. 3. Lvaaa-wrjpgx-vkmp disease. 4. History of pseudoaneurysm repair. PLAN I discussed with the patient and her . She will need a CT-guided biopsy which will be sent for routine cultures, AFB, fungal culture and pathology. I explained to her the procedure and the complications including complication of anesthesia, pneumothorax requiring chest tube, bleeding complication due to blood vessels, lungs nerves, arrhythmia, hypoxia and possibility of nondiagnostic biopsy. She understands well and wants to proceed with it. She will be scheduled at [facility]. MD JENY Vizcarra/IRWIN /11:34 PM /11:48 PM GOOD
== END | disposition home or self-care (01) ==
LOC: HSDC 12:55
PROVIDERS: ATTEND Specialist
DX: R91.8 Other nonspecific abnormal finding of lung field (principal); D89.813 Graft-versus-host disease, unspecified; K21.9 Gastro-esophageal reflux disease without esophagitis; Z87.891 Personal history of nicotine dependence; Z94.81 Bone marrow transplant status
CPT/HCPCS: 00520; 31623; 31625; 71010; 76000; 85025; 85610; 85730; 87015; 87070; 87102; 87116; 87205; 87206; 88112; 88305; 94664; J0171; J2250; J2405; J3010; J7120; J7613

== ENCOUNTER 2016-12-18 08:41 | Day surgery (SDC) | payer MEDICARE ==
[2016-12-18] VITALS (7 sets, daily range): BP systolic 94–97; BP diastolic 52–56; PULSE 78–86; RESP 18; TEMP 97.6; O2SAT 94–97
[~2016-12-18] VITALS: Ht 177.8 cm; Wt 70.5 kg
[~2016-12-18 08:41] MED LIST changes: -*RESP: ALBUTEROL 2.5 MG/3 ML NEB (PRN) PERIprocedural Use ONLY NEB ONE; -CHLORHEXIDINE GLUCONATE 2 % 1 PACK (2 CLOTHS) TOPICAL PRN; -DO NOT ADM ANY ANTICOAGULANT DRUGS PRN; -EPINEPHrine HCL (1:1000) 1 MG/ML VIAL E-TRACHE ONE; -FAMOTIDINE 20 MG/2 ML VIAL IV ONE; -INSULIN HUMAN REGULAR 1,000 UNITS/10 ML VIAL SQ PRN; -LACTATED RINGER'S 1000 ML IV PRN; -LIDOCAINE HCL 2% 50 ML VIAL ONE; -METOPROLOL TARTRATE 25 MG TAB PO PRN; -MIDAZOLAM HCL 2 MG/2 ML VIAL ONE; -ONDANSETRON HCL 4 MG/2 ML VIAL IV PUSH ONE; -POVIDONE IODINE 5% (ANTISEPSIS KIT) 4 APPLICATIONS EACH NARE PRN; -PROPOFOL 200 MG/20 ML AMP IV ONE; -SODIUM CHLORID 0.9% 500 ML IV PRN
[2016-12-18] MEDS ORDERED: META1TAB19 PO (08:53)
[2016-12-18 10:00] LABS: APTT (PATIENT) 28.7 SEC (24.3-30.1)
[2016-12-18] MEDS ORDERED: SODIUM CHLOR 0.9% 1000 ML IV SCH (10:00)
[2016-12-18 10:02] LABS: AUTOMATED NEUTROPHIL # 5.6 TH/MM3 (1.8-7.7); BASOPHIL # 0.1 TH/MM3 (0-0.2); BASOPHIL % 0.7 % (0.0-2.0); EOSINOPHIL # 0.4 TH/MM3 (0-0.4); EOSINOPHIL % 4.3 % (0.0-4.0); HEMATOCRIT 41.8 % (35.0-46.0); HEMO FLAGS DIFF FINAL; LYMPH % 25.1 % (9.0-44.0); LYMPHOCYTE # 2.3 TH/MM3 (1.0-4.8); MEAN CELL VOLUME 80.6 FL (80.0-100.0); MEAN CORPUSCULAR HEMOGLOBIN 25.8 PG (27.0-34.0); MEAN CORPUSCULAR HGB CONC 32.1 % (32.0-36.0); MONO % 9.1 % (0.0-8.0); NEUT % 60.8 % (16.0-70.0); PLATELET COUNT 342 TH/MM3 (150-450); RED BLOOD COUNT 5.19 MIL/MM3 (4.00-5.30); RED CELL DISTRIBUTION WIDTH 15.1 % (11.6-17.2); WHITE BLOOD COUNT 9.2 TH/MM3 (4.0-11.0)
[2016-12-18] MEDS ORDERED: fentaNYL CITRATE 250 MCG/5 ML AMP ONE (10:54)
[2016-12-18] MEDS ORDERED: MIDAZOLAM HCL 2 MG/2 ML VIAL ONE ×2 (10:54)
--- NOTE | 2016-12-18 13:48 | RADRPT ---
EXAM DATE/TIME: 12/18/2016 12:52 [facility] COMPARISON: CHEST SINGLE AP, November 30, 2016, 16:41. CT NEEDLE BIOPSY LUNG, RIGHT, December 18, 2016, 11:06. INDICATIONS : Post biopsy right lung mass MEDICAL HISTORY : Gastroesophageal reflux disease. right lung mass SURGICAL HISTORY : Tubal ligation. abdominal pancreas stent ENCOUNTER: Subsequent ACUITY: 1 day PAIN SCORE: 0/10 LOCATION: Right chest FINDINGS: There is a tiny right apical pneumothorax with a couple of millimeters separation of apical pleural l martinez. Right perihilar lung mass is again noted. Mild parenchymal opacity at the lateral right base i s unchanged. Left lung is clear and well inflated. Cardiac contour is grossly stable. CONCLUSION: Tiny right apical pneumothorax Erickson Rushing MD on December 18, 2016 at 13:44 Board Certified Radiologist. This report was verified electronically.
--- NOTE | 2016-12-18 14:30 | RADRPT ---
EXAM DATE/TIME: 12/18/2016 11:06 [facility] COMPARISON: CHEST EXPIRATION ONLY, December 18, 2016, 12:52. INDICATIONS : Right lung mass. SEDATION TIME: 30 minutes BIOPSY SITE: Right MEDICATION(S): 1.) 3 mg midazolam (Versed) IV 2.) 150 mcg fentanyl (Sublimaze) IV DEVICE(S): 1.) 20 gauge Temno core biopsy needle MEDICAL HISTORY : None. SURGICAL HISTORY : None. ENCOUNTER: Initial ACUITY: 1 day PAIN SCORE: 0/10 LOCATION: Right chest A total of two core specimen(s) were obtained and sent to the laboratory for pathologic evaluation. PROCEDURE: 1. CT guided lung biopsy. 2. Conscious sedation with continuous EKG and oximetry monitoring. 3. EKG and oximetry remained stable throughout the procedure. Prior to the procedure informed consent was obtained. Any appropriate prior imaging studies were rev iewed. Using automated exposure control and adjustment of the mA and/or kV according to patient size, radiation dose was kept as low as reasonably achievable to obtain optimal diagnostic quality images. DICOM format image data is available electronically for review and comparison. The site was prepped in a sterile fashion. Full sterile technique was used, including cap, mask, kiki rile gloves and gown and a large sterile sheet. Hand hygiene and 2% chlorhexidine and/or betadine/al cohol prep was utilized per protocol for cutaneous antisepsis. The skin and subcutaneous tissues wer e infiltrated with local anesthetic solution. With CT guidance the previously identified target was localized. Biopsy was performed using the presc ribed needle as above. Adequate hemostasis was obtained with compression at the puncture site. Follow-up CT scan reveals H. trace pneumothorax. Conscious sedation was performed with the prescribed dosages and duration as above in the presence of an independent trained radiology nurse to assist in the monitoring of the patient. EKG and oximetry remained stable throughout the procedure. The patient tolerated the procedure well and there were no complications. The patient was sent to Radiology Outpatient Unit in stable condition. CONCLUSION: Uncomplicated CT guided biopsy. Trace pneumothorax is evident. Mich Bauer MD FACR on December 18, 2016 at 14:28 Board Certified Radiologist. This report was verified electronically.
== END 2016-12-18 15:25 | disposition home or self-care (01) ==
LOC: HRAD 08:41 → HRIP 08:42 → HRAD 15:25
PROVIDERS: ATTEND Specialist
DX: C34.91 Malignant neoplasm of unspecified part of right bronchus or lung (principal); J95.811 Postprocedural pneumothorax; K21.9 Gastro-esophageal reflux disease without esophagitis
CPT/HCPCS: 32405; 71010; 77012; 85025; 85610; 85730; 87015; 87070; 87102; 87116; 87205; 87206; 88305; 88333; 88341; 88342; J2250; J3010; J7030

== ENCOUNTER → 2016-12-19 | Outpatient (CLI) | payer MEDICARE ==
[~2016-12-19] MED LIST changes: -ALBUAER3 INH; +BENA25TA6; +CYAN1TAB24 PO; +DEXA4TAB; +DEXA4TAB PO; +FOLI1TAB6; +FOLI800T PO; +LEVA500T20 PO; +LEVE500T8; +LEVE500T8 PO; +META1TAB19 PO; +MORP1TAB25 PO; +MSIR15; +MSIR15 PO; +OXYC-392 PO; +SERT-132 PO
--- NOTE | 2016-12-19 11:09 | RADRPT ---
EXAM DATE/TIME: 12/19/2016 10:42 [facility] COMPARISON: CT NEEDLE BIOPSY LUNG, RIGHT, December 18, 2016, 11:06. CHEST EXPIRATION ONLY, December 18, 2016, 12:52. INDICATIONS : Evaluate right apical pneumothorax MEDICAL HISTORY : Gastroesophageal reflux disease. right lung mass SURGICAL HISTORY : Tubal ligation. pancreas stent ENCOUNTER: Sequela ACUITY: 2 days PAIN SCORE: 0/10 LOCATION: Right chest FINDINGS: The previously noted tiny right apical pneumothorax appears to have resolved. There is no change in t he right upper lung mass. No pleural effusions. The bony structures are stable. CONCLUSION: No evidence of pneumothorax. Toby Bateman MD on December 19, 2016 at 11:06 Board Certified Radiologist. This report was verified electronically.
== END ==
LOC: HRAD 10:29
PROVIDERS: ATTEND Radiology Body Imaging
DX: J93.9 Pneumothorax, unspecified (principal)
CPT/HCPCS: 71010

== ENCOUNTER 2017-03-01 12:28 | Emergency (ER) | payer MEDICARE ==
[~2017-03-01] VITALS: Ht 167.6 cm; Wt 80.0 kg
[~2017-03-01 12:28] MED LIST changes: -BENA25TA6; -CYAN1TAB24 PO; -DEXA4TAB PO; -FOLI800T PO; -LEVA500T20 PO; -LEVE500T8 PO; -MORP1TAB25 PO; -MSIR15 PO; -OXYC-392 PO; -SERT-132 PO
[2017-03-01 12:34] VITALS: BP 131/60; PULSE 123; RESP 18; TEMP 99.3; O2SAT 98
[2017-03-01] MEDS ORDERED: SODIUM CHLOR 0.9% 1000 ML INJ 1,000 ML IV SCH (12:41)
[2017-03-01 12:43] VITALS: BP 131/60; PULSE 118; RESP 20; O2SAT 99
[2017-03-01] MEDS ORDERED: SODIUM CHLORIDE 0.9% FLUSH 10 ML FLUSH IV FLUSH PRN (12:45)
[2017-03-01] MEDS ORDERED: ONDANSETRON HCL 4 MG/2 ML VIAL IV PUSH ONE ×2 (12:45→17:00)
--- NOTE | 2017-03-01 12:48 | PD ---
HPI Chief Complaint: Pain: Acute or Chronic Time Seen by Provider: 12:39 Travel History International Travel<30 days: No Contact w/Intl Traveler<30days: No Traveled to known affect area: No History of Present Illness HPI Patient comes in complaining of generalized weakness and right lower extremity pain. Patient reports that she had chemotherapy yesterday and had her morphine increased. Patient states since chemotherapy she's been unable to keep anything down secondary to nausea and vomiting. Patient denies any blood in the vomit. States her right leg pain has been ongoing for a while now, states she was on a Dilaudid drip following chemotherapy it seemed to alleviate it. Denies anything making it worse. Pain is worse with trying to stand. Patient denies any trauma.. Denies any loss change in bowel or bladder, chest pain, shortness breath, fevers, or abdominal pain. Patient oncologist is Dr. Vincent. [facility] Past Medical History Blood Disorders: Yes Heart Rhythm Problems: No Cancer: Yes (myelofibrosis/ bone marrow transplant) Cardiovascular Problems: No High Cholesterol: No Chemotherapy: Yes Chest Pain: No Congestive Heart Failure: No COPD: Yes Diabetes: No Diminished Hearing: No Endocrine: Yes GERD: Yes (gastroesopheal reflux) Genitourinary: No Hepatitis: Yes Hiatal Hernia: No Immune Disorder: No Musculoskeletal: No Neurologic: Yes (SLIGHT LEG NUMBNESS ) Psychiatric: No Reproductive: No Respiratory: Yes Migraines: Yes Radiation Therapy: Yes Thyroid Disease: No Menopausal: Yes : 2 Para: 2 Tubal Ligation: Yes Past Surgical History Abdominal Surgery: No AICD: No Body Medical Devices: CELIAC STENT Cardiac Surgery: No Ear Surgery: No Endocrine Surgery: No Eye Surgery: No Genitourinary Surgery: No Gynecologic Surgery: Yes Hysterectomy: No Joint Replacement: No Neurologic Surgery: No Oral Surgery: Yes (TONSILECTOMY, WISDOM TEETH REMOVED) Pacemaker: No Thoracic Surgery: No Tonsillectomy: Yes Other Surgery: Yes (stent) Social History Alcohol Use: Yes (OCC) Tobacco Use: No (QUIT 2009) Substance Use: No Allergies-Medications (Allergen,Severity, Reaction): Coded Allergies: codeine (Unverified Allergy, Severe, PT NOT ALLERGIC TO CODEINE, 03/01/17) Reported Meds & Prescriptions Reported Meds & Active Scripts Active Levaquin (Levofloxacin) 500 Mg Tablet 500 Mg PO DAILY 7 Days Reported Oxycodone (Oxycodone HCl) 5 Mg Tab 5 Mg PO Q6H PRN Sertraline (Sertraline HCl) 50 Mg Tab 50 Mg PO DAILY Benadryl Allergy (Diphenhydramine HCl) 25 Mg Tablet 2 Tab Q6HR PRN Morphine IR (Morphine Sulfate) 15 Mg Tab 15 Mg PO Q6HR PRN Morphine ER (Morphine Sulfate) 30 Mg Tab 30 Mg PO BID Folic Acid 0.8 Mg Tab 1 Mg PO DAILY B12 (Cyanocobalamin) 1,000 Mcg Tab Tab PO DAILY Dexamethasone 4 Mg Tab 4 Mg PO DAILY Levetiracetam 500 Mg Tab 500 Mg PO BID Omeprazole 40 Mg Cap 40 Mg PO EVERY OTHER DAY Review of Systems Except as stated in HPI: all other systems reviewed are Neg Physical Exam Narrative GENERAL: Well-developed, well nourished, in no acute distress, and non-ill appearing. SKIN: Focused skin assessment warm and dry. HEAD: Atraumatic. Normocephalic. EYES: Pupils equal and round. EOMI. No scleral icterus. No injection or drainage. ENT: No nasal bleeding or discharge. Mucous membranes pink and moist. NECK: Trachea midline. Supple. No nuclear rigidity. CARDIOVASCULAR: Tachycardia rate and rhythm. No murmur appreciated. RESPIRATORY: No accessory muscle use. No respiratory distress. Clear to auscultation. Breath sounds equal bilaterally. GASTROINTESTINAL: Abdomen soft, non-tender, nondistended, and no guarding. Hepatic and splenic margins not palpable. Normal bowel sounds 4. No pulsatile mass. MUSCULOSKELETAL: No obvious deformities. No clubbing. No cyanosis. No edema. Full range of motion. NEUROLOGICAL: Awake and alert. No obvious cranial nerve deficits. Motor grossly within normal limits. Normal speech. PSYCHIATRIC: Appropriate mood and affect; insight and judgment normal. Data Data Last Documented VS Vital Signs Date Time Temp Pulse Resp B/P (MAP) Pulse Ox O2 Delivery O2 Flow Rate FiO2 03/01/17 16:55 135 18 130/60 (83) 97 Nasal Cannula 2.00 03/01/17 12:34 99.3 Orders Orders Complete Blood Count With Diff (03/01/17 12:41) Comprehensive Metabolic Panel (03/01/17 12:41) Lipase (03/01/17 12:41) Prothrombin Time / Inr (Pt) (03/01/17 12:41) Act Partial Throm Time (Ptt) (03/01/17 12:41) Urinalysis - C+S If Indicated (03/01/17 12:41) Iv Access Insert/Monitor (03/01/17 12:41) Ecg Monitoring (03/01/17 12:41) Oximetry (03/01/17 12:41) Sodium Chlor 0.9% 1000 Ml Inj (Ns 1000 M (03/01/17 12:41) Sodium Chloride 0.9% Flush (Ns Flush) (03/01/17 12:45) Electrocardiogram (03/01/17 12:41) Orthostatic Vital Signs (03/01/17 12:41) Us Leg Venous Doppler (03/01/17 12:41) Ondansetron Inj (Zofran Inj) (03/01/17 12:45) Blood Culture (03/01/17 15:52) Ed Discharge Order (03/01/17 16:04) Morphine Inj (Morphine Inj) (03/01/17 17:00) Ondansetron Inj (Zofran Inj) (03/01/17 17:00) Labs Laboratory Tests Test 03/01/17 12:40 03/01/17 13:19 White Blood Count 0.3 TH/MM3 Red Blood Count 3.45 MIL/MM3 Hemoglobin 9.4 GM/DL Hematocrit 27.7 % Mean Corpuscular Volume 80.5 FL Mean Corpuscular Hemoglobin 27.2 PG Mean Corpuscular Hemoglobin Concent 33.7 % Red Cell Distribution Width 19.7 % Platelet Count 36 TH/MM3 Mean Platelet Volume 8.6 FL CBC Comment AUTO DIFF Differential Total Cells Counted 14 Neutrophils % (Manual) 36 % Lymphocytes % 57 % Eosinophils % 7 % Neutrophils # (Manual) 0.1 TH/MM3 Differential Comment FINAL DIFF MANUAL Platelet Estimate LOW Platelet Morphology Comment NORMAL Prothrombin Time 12.0 SEC Prothromb Time International Ratio 1.1 RATIO Activated Partial Thromboplast Time 26.8 SEC Blood Urea Nitrogen 32 MG/DL Creatinine 1.15 MG/DL Random Glucose 101 MG/DL Total Protein 6.0 GM/DL Albumin 1.9 GM/DL Calcium Level 7.8 MG/DL Alkaline Phosphatase 136 U/L Aspartate Amino Transf (AST/SGOT) 47 U/L Alanine Aminotransferase (ALT/SGPT) 71 U/L Total Bilirubin 0.4 MG/DL Sodium Level 140 MEQ/L Potassium Level 4.2 MEQ/L Chloride Level 108 MEQ/L Carbon Dioxide Level 25.5 MEQ/L Anion Gap 7 MEQ/L Estimat Glomerular Filtration Rate 48 ML/MIN Lipase 37 U/L Urine Color LIGHT-YELLOW Urine Turbidity CLEAR Urine pH 5.5 Urine Specific [place] 1.007 Urine Protein 30 mg/dL Urine Glucose (UA) NEG mg/dL Urine Ketones NEG mg/dL Urine Occult Blood MOD Urine Nitrite NEG Urine Bilirubin NEG Urine Urobilinogen LESS THAN 2.0 MG/DL Urine Leukocyte Esterase NEG Urine RBC 1 /hpf Urine WBC 2 /hpf Urine Amorphous Sediment OCC Urine Bacteria RARE /hpf Microscopic Urinalysis Comment CULT NOT INDICATED MDM Medical Decision Making Medical Screen Exam Complete: Yes Emergency Medical Condition: Yes Interpretation(s) EKG reviewed by Dr. Castillo shows sinus tachycardia with ventricular rate of 121. No STEMI. Differential Diagnosis Dehydration, DVT, electrolyte abnormality, UTI, orthostatic hypertension, other Narrative Course Discussed all findings with patient. Patient was offered admission to the hospital. Patient states she just wants to go home does not would be admitted to the hospital. Discussed with patient Dr. Cole's recommendation starting antibiotics and repeat blood work tomorrow. Patient verbalizes understanding of this. Patient in no obvious distress upon re-evaluation. All pertinent laboratory/ Radiology result(s) discussed with patient/family. Discussed patient with Dr. Castillo prior to discharge, who is in agreement with plan of care and disposition. Patient was asked if they wanted to speak to my attending, which the patient did not wish to do at this time. Any questions/concerns in reference to patient diagnosis/condition discussed and clarified prior to patient's discharge. Reinforced sheer importance of close follow up with patient's oncologist. Instructed patient to return to ED immediately, if symptoms return/ worsen. Patient showed understanding of above instructions. Further instructions and recommendations were detailed in discharge paperwork. Patient left without difficulty out of ED at discharge. Physician Communication Physician Communication [id number] Corrales states her drug in contact with Dr. Cole regarding the patient. [id number] Cole, who recommends if the patient feels comfortable going home then patient can safely be discharged from the hospital, recommended starting the patient on Levaquin 500 mg 7 days, and to call his office Sunday have repeat blood work done tomorrow. Diagnosis Primary Impression: General weakness Additional Impression: Neutropenic Qualified Codes: D70.1 - Agranulocytosis secondary to cancer chemotherapy; T45.1X5A - Adverse effect of antineoplastic and immunosuppressive drugs, initial encounter Patient Instructions: General Instructions, Neutropenia (GEN), Neutropenic Precautions (GEN) Additional Instructions: Follow-up with your oncologist office tomorrow for repeat blood work. Take all medication as prescribed. Drink plenty of fluids. Return to the emergency department if symptoms get worse or if fever develops. Med/Other Pt SpecificInfo: Prescription(s) given Scripts Levofloxacin (Levaquin) 500 Mg Tablet 500 MG PO DAILY for Infection for 7 Days, #7 TAB 0 Refills Prov: Rachelle Castillo DO 03/01/17 Disposition: 01 DISCHARGE HOME Condition: Stable Lance Laboy Mar 01, 2017 12:48
[2017-03-01 12:50] VITALS: RESP 20; O2SAT 99
[2017-03-01 13:27] LABS: HEMATOCRIT 27.7 % (35.0-46.0); MEAN CELL VOLUME 80.5 FL (80.0-100.0); MEAN CORPUSCULAR HEMOGLOBIN 27.2 PG (27.0-34.0); MEAN CORPUSCULAR HGB CONC 33.7 % (32.0-36.0); PLATELET COUNT 36 TH/MM3 (150-450); RED BLOOD COUNT 3.45 MIL/MM3 (4.00-5.30); RED CELL DISTRIBUTION WIDTH 19.7 % (11.6-17.2); WHITE BLOOD COUNT 0.3 TH/MM3 (4.0-11.0)
[2017-03-01 13:30] LABS: HEMO FLAGS AUTO DIFF
[2017-03-01 13:32] LABS: BACTERIA, URINE RARE /hpf; BLOOD, URINE MOD (NEG); COMMENT (UR) CULT NOT INDICATED; CULTURE IF INDICATED CULT NOT INDICATED; GLUCOSE,URINE NEG (NEG); KETONE, URINE NEG (NEG); NITRITE,URINE NEG (NEG); PH, URINE 5.5 (5.0-8.5); URINE COLOR LIGHT-YELLOW (YELLW/STRAW)
[2017-03-01 13:34] LABS: APTT (PATIENT) 26.8 SEC (24.3-30.1); INTERNATIONAL NORMALIZED RATIO 1.1 RATIO
--- NOTE | 2017-03-01 13:49 | RADRPT ---
EXAM DATE/TIME: 03/01/2017 12:58 [facility] COMPARISON: No previous studies available for comparison. INDICATIONS : Right leg pain. MEDICAL HISTORY : Chronic obstructive pulmonary disease. Hypercholesterolemia. Migraine. Myelofibrosis. Hepatitis. Chemotherapy. Radiation therapy. SURGICAL HISTORY : Tonsillectomy. Tubal ligation. Bone marrow transplant. ENCOUNTER: Initial ACUITY: 1 day PAIN SCORE: 7/10 LOCATION: Right leg. TECHNIQUE: Venous ultrasound of the leg was performed from the inguinal ligament to the proximal calf. Real-carmina e, color Doppler and spectral tracing, compression and augmentation techniques were used. FINDINGS: There is normal compressibility of the deep venous system from the inguinal region to the proximal ca lf. No echogenic clot is seen in the lumen of the common femoral, femoral, popliteal, and posterior tibial veins. There is a normal response of the venous system to proximal and distal augmentation an d respiration. CONCLUSION: No evidence of DVT. Toby Bateman MD on March 01, 2017 at 13:48 Board Certified Radiologist. This report was verified electronically.
[2017-03-01 13:59] LABS: ALKALINE PHOSPHATASE 136 U/L (45-117); TOTAL BILIRUBIN ADULT 0.4 MG/DL (0.2-1.0)
[2017-03-01 14:00] LABS: ALT (GPT) 71 U/L (10-53); ANION GAP 7 MEQ/L (5-15); AST (GOT) 47 U/L (15-37); BICARBONATE 25.5 MEQ/L (21.0-32.0); BLOOD UREA NITROGEN 32 MG/DL (7-18); CHLORIDE 108 MEQ/L (98-107); GLOMERULAR FILTRATION RATE 48 ML/MIN (>89); POTASSIUM 4.2 MEQ/L (3.5-5.1); SODIUM (NA) 140 MEQ/L (136-145)
[2017-03-01 14:09] VITALS: BP_SYST 112; BP_SYST 123; BP_SYST 125; BP_DIAS 56; BP_DIAS 60; BP_DIAS 77
[2017-03-01 14:10] LABS: EOSINOPHILS 7 % (0-4); POLYS (SEG NEUTROPHILS) 36 % (16-70); WBC DIFF SAMPLE 14
[2017-03-01 14:11] LABS: NEUTROPHIL # MANUAL DIFF 0.1 TH/MM3 (1.8-7.7); PLATELET ESTIMATE SMEAR LOW (NORMAL); PLATELET MORPHOLOGY NORMAL (NORMAL); SCAN/DIFF FINAL DIFF MANUAL
[2017-03-01] MEDS ORDERED: DEXA4TAB PO (14:19)
[2017-03-01] MEDS ORDERED: CYAN1TAB24 PO (14:19)
[2017-03-01] MEDS ORDERED: FOLI800T PO (14:19)
[2017-03-01] MEDS ORDERED: MORP1TAB25 PO (14:19)
[2017-03-01] MEDS ORDERED: LEVE500T8 PO (14:19)
[2017-03-01] MEDS ORDERED: BENA25TA6 (14:19)
[2017-03-01] MEDS ORDERED: MSIR15 PO (14:19)
[2017-03-01] MEDS ORDERED: SERT-132 PO (14:19)
[2017-03-01] MEDS ORDERED: OXYC-392 PO (14:19)
[2017-03-01] MEDS ORDERED: LEVA500T20 PO (16:03)
[2017-03-01 16:55] VITALS: BP 130/60; PULSE 135; RESP 18; O2SAT 95; O2SAT 97
[2017-03-01] MEDS ORDERED: MORPHINE SULFATE 4 MG/ML INJ IV PUSH ONE (17:00)
--- NOTE | 2017-03-02 22:03 | EKG ---
Date Performed: 03/01/2017 Time Performed: 12:41:09 PTAGE: 62 years EKG: SINUS TACHYCARDIA WITH SHORT OK INTERVAL ABNORMAL RHYTHM ECG NO PREVIOUS TRACING DOCTOR: Elliott Olmstead Interpretating Date/Time 03/02/2017 21:41:56
== END 2017-03-01 17:31 | disposition home or self-care (01) ==
LOC: NEPC 12:28
DX: R53.1 Weakness (principal); D70.1 Agranulocytosis secondary to cancer chemotherapy; T45.1X5A Adverse effect of antineoplastic and immunosuppressive drugs, initial encounter; A02.8 Other specified salmonella infections; M79.604 Pain in right leg; R11.2 Nausea with vomiting, unspecified; Z98.890 Other specified postprocedural states; Z86.2 Personal history of diseases of the blood and blood-forming organs and certain disorders involving the immune mechanism; Z85.89 Personal history of malignant neoplasm of other organs and systems; Z87.09 Personal history of other diseases of the respiratory system; Z87.19 Personal history of other diseases of the digestive system; Z86.69 Personal history of other diseases of the nervous system and sense organs; Z86.39 Personal history of other endocrine, nutritional and metabolic disease
CPT/HCPCS: 80053; 81001; 83690; 85007; 85027; 85610; 85730; 87040; 87077; 87186; 87205; 93005; 93971; 96361; 96374; 96375; 99285; J2270; J2405; J7030

== ENCOUNTER 2017-03-02 03:24 | Inpatient (IN) | payer MEDICARE ==
[2017-03-02] VITALS (15 sets, daily range): BP systolic 77–156; BP diastolic 43–69; PULSE 116–171; RESP 21–47; TEMP 97.8–98.7; O2SAT 84–100
[~2017-03-02] VITALS: Ht 177.8 cm; Wt 81.6 kg
[~2017-03-02 03:24] MED LIST changes: +BENA25TA6; +CYAN1TAB24 PO; -DEXA4TAB; +DEXA4TAB PO; -FOLI1TAB6; +FOLI800T PO; +LEVA500T20 PO; -LEVE500T8; +LEVE500T8 PO; -META1TAB19 PO; +MORP1TAB25 PO; -MSIR15; +MSIR15 PO; +OXYC-392 PO; +SERT-132 PO
[2017-03-02] MEDS ORDERED: SODIUM CHLOR 0.9% 1000 ML INJ 1,000 ML IV ONE ×4 (03:41→05:45)
[2017-03-02] MEDS ORDERED: CEFEPIME INJ 2,000 MG in SODIUM CHLORIDE 0.9% INJ 100 ML IV STA (03:41)
--- NOTE | 2017-03-02 04:05 | RADRPT ---
EXAM DATE/TIME: 03/02/2017 03:44 [facility] COMPARISON: CHEST EXPIRATION ONLY, December 19, 2016, 10:42. CHEST SINGLE AP, November 30, 2016, 16:41. INDICATIONS : Short of breath. MEDICAL HISTORY : Carcinoma, lung. Chronic obstructive pulmonary disease. Hypercholesterolemia. Migraine.Myelofib rosis. Hepatitis. Chemotherapy. Radiation therapy SURGICAL HISTORY : Infusa port.Tonsillectomy. Tubal ligation. Bone marrow transplant ENCOUNTER: Initial ACUITY: 4 - 6 days PAIN SCORE: 5/10 LOCATION: Bilateral chest FINDINGS: A single view of the chest demonstrates right upper lobe infiltrate/opacity. Left lung clear. Left-si ded Aaejll-f-Suyc catheter with tip in the SVC. Osseous structures are intact. CONCLUSION: Right upper lobe opacity likely combination of mass and pneumonitis/infiltrate. eDrek Balderrama MD on March 02, 2017 at 4:02 Board Certified Radiologist. This report was verified electronically.
[2017-03-02 04:24] LABS: HEMATOCRIT 30.3 % (35.0-46.0); MEAN CELL VOLUME 82.5 FL (80.0-100.0); MEAN CORPUSCULAR HEMOGLOBIN 26.8 PG (27.0-34.0); MEAN CORPUSCULAR HGB CONC 32.5 % (32.0-36.0); RED BLOOD COUNT 3.68 MIL/MM3 (4.00-5.30); WHITE BLOOD COUNT 0.5 TH/MM3 (4.0-11.0)
[2017-03-02] MEDS ORDERED: LEVOFLOXACIN 750 MG PREMIX INJ 150 ML IV ONE (04:30)
[2017-03-02] MEDS ORDERED: VANCOMYCIN INJ 1,550 MG in SODIUM CHLORID 0.9% 500 ML INJ 500 ML IV ONE (04:30)
[2017-03-02 04:32] LABS: HEMO FLAGS AUTO DIFF
[2017-03-02 04:35] LABS: PLATELET COUNT 19 TH/MM3 (150-450)
[2017-03-02 04:36] LABS: BICARBONATE 17.1 MEQ/L (21.0-32.0); CALCIUM-PROTEIN CORRECTED 7.7 MG/DL (8.5-10.1); POTASSIUM 4.7 MEQ/L (3.5-5.1); TOTAL BILIRUBIN ADULT 0.4 MG/DL (0.2-1.0)
[2017-03-02 04:39] LABS: APTT (PATIENT) 29.2 SEC (24.3-30.1); INTERNATIONAL NORMALIZED RATIO 1.2 RATIO; PROTHROMBIN TIME - PATIENT 13.8 SEC (9.8-11.6)
[2017-03-02 05:02] LABS: BANDS 4 % (0-6); NEUTROPHIL # MANUAL DIFF 0.1 TH/MM3 (1.8-7.7); POLYS (SEG NEUTROPHILS) 8 % (16-70); WBC DIFF SAMPLE 25
[2017-03-02 05:03] LABS: PLATELET ESTIMATE SMEAR LOW (NORMAL); PLATELET MORPHOLOGY NORMAL (NORMAL); SCAN/DIFF FINAL DIFF MANUAL
--- NOTE | 2017-03-02 05:16 | RADRPT ---
EXAM DATE/TIME: 03/02/2017 04:58 [facility] COMPARISON: CT BRAIN W/O CONTRAST, February 08, 2014, 1:41. INDICATIONS : Altered mental status. RADIATION DOSE: 56.35 CTDIvol (mGy) MEDICAL HISTORY : Carcinoma, not otherwise specified. SURGICAL HISTORY : None. ENCOUNTER: Initial ACUITY: 1 day PAIN SCALE: 0/10 LOCATION: cranial TECHNIQUE: Multiple contiguous axial images were obtained of the head. Using automated exposure control and adj ustment of the mA and/or kV according to patient size, radiation dose was kept as low as reasonably a chievable to obtain optimal diagnostic quality images. DICOM format image data is available electro nically for review and comparison. FINDINGS: CEREBRUM: The ventricles are normal for age. No evidence of midline shift, mass lesion, hemorrhage or acute in farction. No extra-axial fluid collections are seen. POSTERIOR FOSSA: The cerebellum and brainstem are intact. The 4th ventricle is midline. The cerebellopontine angle i s unremarkable. EXTRACRANIAL: The visualized portion of the orbits is intact. SKULL: The calvaria is intact. No evidence of skull fracture. CONCLUSION: No acute intracranial disease. Right nasal fracture likely old. Derek Balderrama MD on March 02, 2017 at 5:12 Board Certified Radiologist. This report was verified electronically.
--- NOTE | 2017-03-02 05:36 | PD ---
HPI Chief Complaint: Altered Mental Status Time Seen by Provider: 03:34 Travel History International Travel<30 days: No Contact w/Intl Traveler<30days: No Traveled to known affect area: No History of Present Illness HPI Patient is a 62 year old female, with history of lung cancer, who is brought in by EMS due to altered mental status. EMS states they found her in the bathroom and she was altered with mottled skin. They report she was breathing very slowly and was unable to be woken. She was given 0.4mg Narcan and started breathing normally and mentating well. She was seen in the ED about 12 hrs prior and was discharged with a prescription for Levaquin. She was found to be neutropenic at the time. She also has increased her Morphine due to pain from her cancer. She is complaining of being unable to breath. She says she has pain all over. She does not know if she has had fever. PFSH Past Medical History Blood Disorders: Yes Heart Rhythm Problems: No Cancer: Yes (myelofibrosis/ bone marrow transplant) Cardiovascular Problems: No High Cholesterol: No Chemotherapy: Yes Chest Pain: No Congestive Heart Failure: No COPD: Yes Diabetes: No Diminished Hearing: No Endocrine: Yes GERD: Yes (gastroesopheal reflux) Genitourinary: No Hepatitis: Yes Hiatal Hernia: No Immune Disorder: No Medical other: Yes Musculoskeletal: No Neurologic: Yes (SLIGHT LEG NUMBNESS ) Psychiatric: No Reproductive: No Respiratory: Yes Migraines: Yes Radiation Therapy: Yes Thyroid Disease: No Menopausal: Yes : 2 Para: 2 Tubal Ligation: Yes Past Surgical History Abdominal Surgery: No AICD: No Body Medical Devices: CELIAC STENT Cardiac Surgery: No Ear Surgery: No Endocrine Surgery: No Eye Surgery: No Genitourinary Surgery: No Gynecologic Surgery: Yes Hysterectomy: No Joint Replacement: No Neurologic Surgery: No Oral Surgery: Yes (TONSILECTOMY, WISDOM TEETH REMOVED) Pacemaker: No Thoracic Surgery: No Tonsillectomy: Yes Other Surgery: Yes (stent) Social History Alcohol Use: Yes (OCC) Tobacco Use: No (QUIT 2009) Substance Use: No Allergies-Medications (Allergen,Severity, Reaction): Coded Allergies: codeine (Unverified Allergy, Severe, PT NOT ALLERGIC TO CODEINE, 03/01/17) Reported Meds & Prescriptions Reported Meds & Active Scripts Active Levaquin (Levofloxacin) 500 Mg Tablet 500 Mg PO DAILY 7 Days Reported Oxycodone (Oxycodone HCl) 5 Mg Tab 5 Mg PO Q6H PRN Sertraline (Sertraline HCl) 50 Mg Tab 50 Mg PO DAILY Benadryl Allergy (Diphenhydramine HCl) 25 Mg Tablet 2 Tab Q6HR PRN Morphine IR (Morphine Sulfate) 15 Mg Tab 15 Mg PO Q6HR PRN Morphine ER (Morphine Sulfate) 30 Mg Tab 30 Mg PO BID Folic Acid 0.8 Mg Tab 1 Mg PO DAILY B12 (Cyanocobalamin) 1,000 Mcg Tab Tab PO DAILY Levetiracetam 500 Mg Tab 500 Mg PO BID Omeprazole 40 Mg Cap 40 Mg PO EVERY OTHER DAY Review of Systems ROS Limitations: Altered Mental Status General / Constitutional: Positive: Chills Cardiovascular: No: Chest Pain or Discomfort Respiratory: Positive: Shortness of Breath Gastrointestinal: No: Abdominal Pain Skin: No Rash Physical Exam Narrative GENERAL: Awake, mildly confused, in moderate distress. SKIN: Focused skin assessment warm/dry. No wounds. HEAD: Atraumatic. Normocephalic. EYES: Pupils equal and round. No scleral icterus. EOMI. ENT: Mucous membranes pink and moist. NECK: Trachea midline. No JVD. CARDIOVASCULAR: Tachycardia. RESPIRATORY: No accessory muscle use. Clear to auscultation. Breath sounds equal bilaterally. GASTROINTESTINAL: Abdomen soft, non-tender, nondistended. MUSCULOSKELETAL: No obvious deformities. No clubbing. No cyanosis. No edema. NEUROLOGICAL: Awake and alert, confused. No obvious cranial nerve deficits. Motor grossly within normal limits. Normal speech. PSYCHIATRIC: Appropriate mood and affect; insight and judgment normal. Data Data Last Documented VS Vital Signs Date Time Temp Pulse Resp B/P (MAP) Pulse Ox O2 Delivery O2 Flow Rate FiO2 03/02/17 04:16 152 40 156/68 (97) 98 Nasal Cannula 4.00 03/02/17 03:28 97.9 Orders Orders Complete Blood Count With Diff (03/02/17 03:41) Comprehensive Metabolic Panel (03/02/17 03:41) Prothrombin Time / Inr (Pt) (03/02/17 03:41) Act Partial Throm Time (Ptt) (03/02/17 03:41) Lactic Acid Sepsis Protocol (03/02/17 03:41) Ckmb (Isoenzyme) Profile (03/02/17 03:41) Troponin I (03/02/17 03:41) Urinalysis - C+S If Indicated (03/02/17 03:41) Blood Culture (03/02/17 03:41) Chest, Single Ap (03/02/17 03:41) Blood Glucose (03/02/17 03:41) Ecg Monitoring (03/02/17 03:41) Iv Access Insert/Monitor (03/02/17 03:41) Oximetry (03/02/17 03:41) Oxygen Administration (03/02/17 03:41) Ct Brain W/O Iv Contrast(Rout) (03/02/17 03:41) Cefepime Inj (Maxipime Inj) (03/02/17 03:41) Sodium Chlor 0.9% 1000 Ml Inj (Ns 1000 M (03/02/17 03:41) Sodium Chlor 0.9% 1000 Ml Inj (Ns 1000 M (03/02/17 03:41) Ct Pulmonary Angiogram (03/02/17 03:41) Levofloxacin 750 Mg Premix Inj (Levaquin (03/02/17 04:30) Vancomycin Inj (Vancomycin Inj) (03/02/17 04:30) Sodium Chlor 0.9% 1000 Ml Inj (Ns 1000 M (03/02/17 05:00) Isolation (03/02/17 04:49) Vancomycin Consult Pharmacy (Vancomycin (03/02/17 05:45) Cefepime Inj (Maxipime Inj) (03/02/17 05:45) Sputum Culture And Gram Stain (03/02/17 05:32) Cbc No Diff, Includes Plts (03/03/17 05:00) Cbc No Diff, Includes Plts (03/04/17 05:00) Cbc No Diff, Includes Plts (03/05/17 05:00) Cbc No Diff, Includes Plts (03/06/17 05:00) Cbc No Diff, Includes Plts (03/07/17 05:00) Cbc No Diff, Includes Plts (03/08/17 05:00) Cbc No Diff, Includes Plts (03/09/17 05:00) Basic Metabolic Panel (Bmp) (03/03/17 05:00) Basic Metabolic Panel (Bmp) (03/04/17 05:00) Basic Metabolic Panel (Bmp) (03/05/17 05:00) Basic Metabolic Panel (Bmp) (03/06/17 05:00) Basic Metabolic Panel (Bmp) (03/07/17 05:00) Basic Metabolic Panel (Bmp) (03/08/17 05:00) Basic Metabolic Panel (Bmp) (03/09/17 05:00) Inpatient Certification (03/02/17 05:32) Resp Ezpap/Pep Therapy (03/02/17 05:32) Resp Acapella/Pep/Chest Vibra (03/02/17 05:32) Resp Incentive Spirometry (03/02/17 05:32) Nursing Bedside Swallow Assess .ONCE (03/02/17 05:32) ^ Other Nursing Orders (03/02/17 05:32) ^ Other Nursing Orders (03/02/17 05:32) ^ Other Nursing Orders (03/02/17 05:32) Bedside Glucose SHAUNA.Q6H (03/02/17 05:32) Blood Glucose Goal (Criteria) (03/02/17 05:32) Hypoglycemia 51 - 69 Mg/Dl (03/02/17 05:32) Hypoglycemia 50 Mg/Dl Or < (03/02/17 05:32) Notify Dr: Other (03/02/17 05:32) Dextrose 50% In Pineda (Vial) Inj (D50w (Vi (03/02/17 05:45) Insulin Human Reg Supp Scale (Novolin R (03/02/17 06:00) Albuterol-Ipratropium Neb (Duoneb Neb) (03/02/17 10:00) Albuterol-Ipratropium Neb (Duoneb Neb) (03/02/17 05:45) Vital Signs (Adult) SHAUNA.Q1H (03/02/17 05:32) Elevate Head Of Bed (03/02/17 05:32) Activity Oob With Assistance (03/02/17 05:32) Neuro Checks . ORDERED (03/02/17 05:32) Sodium Chlor 0.9% 1000 Ml Inj (Ns 1000 M (03/02/17 05:32) Acetaminophen (Tylenol) (03/02/17 05:45) Ondansetron Inj (Zofran Inj) (03/02/17 05:45) Vocal Performer / Telemetry SHAUNA.Q8H (03/02/17 05:32) Scd Bilateral/Knee High SHAUNA.BID (03/02/17 05:32) ^ Initiate Protocol (03/02/17 05:32) Instruction (03/02/17 05:32) [facility] (03/02/17 05:45) Chlorhexidine 2% Cloth (Chlorhexidine 2% (03/03/17 04:00) Chlorhexidine 2% Cloth (Chlorhexidine 2% (03/02/17 05:45) Mrsa Pcr Surveillance (03/02/17 05:32) Docusate Sodium-Senna (Patricia-Colace) (03/02/17 09:00) Labs Laboratory Tests Test 03/02/17 03:40 White Blood Count 0.5 TH/MM3 Red Blood Count 3.68 MIL/MM3 Hemoglobin 9.9 GM/DL Hematocrit 30.3 % Mean Corpuscular Volume 82.5 FL Mean Corpuscular Hemoglobin 26.8 PG Mean Corpuscular Hemoglobin Concent 32.5 % Red Cell Distribution Width 20.0 % Platelet Count 19 TH/MM3 Mean Platelet Volume 8.7 FL Neutrophils # (Auto) TH/MM3 CBC Comment AUTO DIFF Differential Total Cells Counted 25 Neutrophils % (Manual) 8 % Band Neutrophils % 4 % Lymphocytes % 68 % Monocytes % 20 % Neutrophils # (Manual) 0.1 TH/MM3 Differential Comment FINAL DIFF MANUAL Platelet Estimate LOW Platelet Morphology Comment NORMAL Red Cell Morphology Comment NORMAL Prothrombin Time 13.8 SEC Prothromb Time International Ratio 1.2 RATIO Activated Partial Thromboplast Time 29.2 SEC Blood Urea Nitrogen 37 MG/DL Creatinine 2.57 MG/DL Random Glucose 110 MG/DL Total Protein 5.7 GM/DL Albumin 1.6 GM/DL Calcium Level 7.0 MG/DL Alkaline Phosphatase 135 U/L Aspartate Amino Transf (AST/SGOT) 41 U/L Alanine Aminotransferase (ALT/SGPT) 57 U/L Total Bilirubin 0.4 MG/DL Sodium Level 142 MEQ/L Potassium Level 4.7 MEQ/L Chloride Level 112 MEQ/L Carbon Dioxide Level 17.1 MEQ/L Anion Gap 13 MEQ/L Estimat Glomerular Filtration Rate 19 ML/MIN Lactic Acid Level 6.6 mmol/L Protein Corrected Calcium 7.7 MG/DL Total Creatine Kinase 90 U/L Troponin I 0.04 NG/ML MDM Medical Decision Making Medical Screen Exam Complete: Yes Emergency Medical Condition: Yes Medical Record Reviewed: Yes Interpretation(s) ECG shows sinus tachycardia at 172. Differential Diagnosis Sepsis versus dehydration versus PE Narrative Course Patient is a 62-year-old female history of lung cancer who comes in due to altered mental status. She is found to be tachycardic. IV established, labs sent. Patient placed on hospital monitor. She is given 2 L of fluid immediately. She did are he received 800 ML's of IV fluids by EMS. It on cefepime due to history of neutropenia 12 hours ago. Chest x-ray performed concerning for pneumonia. CTA of the chest could not be performed due to creatinine which has increased to 2.3 from around 1.0 12 hours ago. Lactic acid is elevated to 6.6. Vancomycin ordered. Given an additional liter of fluids. Pulse improved to 138 after fluids. She does state she is feeling better. She was found of a platelet count of 19. I spoke with Dr. Ralph of hematology/ oncology who feels we should hold off on transfusion at this time. CT head performed shows no evidence of bleed. Patient admitted for further management. Critical Care Narrative Aggregate critical care time was 35 minutes. Time to perform other separately billable procedures was not included in the critical care time. My time did not include minutes spent treating any other patients simultaneously or on activities that did not directly contribute to the patient's treatment. The services I provided to this patient were to treat and/or prevent clinically significant deterioration that could result in: serious illness or I provided critical care services requiring my management, as noted below: Chart data review, documentation time, medication orders and management, vital sign assessments/reviewing monitor data, ordering and reviewing lab tests, ordering and interpreting/reviewing x-rays and diagnostic studies, care of the patient and discussion of the patient with the admitting physicians. Diagnosis Primary Impression: Severe sepsis Additional Impressions: Pneumonia Qualified Codes: J18.1 - Lobar pneumonia, unspecified organism Dehydration Neutropenia Qualified Codes: D70.1 - Agranulocytosis secondary to cancer chemotherapy; T45.1X5A - Adverse effect of antineoplastic and immunosuppressive drugs, initial encounter Admitting Information Admitting Physician Requests: Admit Migdalia Pratt MD Mar 02, 2017 05:36
[2017-03-02] MEDS ORDERED: ACETAMINOPHEN 325 MG TAB PO PRN (05:45)
[2017-03-02] MEDS ORDERED: DEXTROSE 50% IN WATER 50 ML VIAL(D50) IV PUSH PRN (05:45)
[2017-03-02] MEDS ORDERED: TERBUTALINE INJ 1 MG/ML AMP SQ PRN (05:45)
[2017-03-02] MEDS ORDERED: Vancomycin Consult Pharmacy 1 EA OTHER SCH (05:45)
[2017-03-02] MEDS ORDERED: MISCELLANEOUS NURSING INFORMATION XX SCH (05:45)
[2017-03-02] MEDS ORDERED: RESP: ALBUTEROL 2.5 MG/IPRATROPIUM 0.5 MG NEB (PRN) INH (05:45)
[2017-03-02] MEDS ORDERED: ONDANSETRON HCL 4 MG/2 ML VIAL IV PUSH PRN (05:45)
[2017-03-02] MEDS ORDERED: CHLORHEXIDINE GLUCONATE 2 % 1 PACK (2 CLOTHS) TOP PRN (05:45)
--- NOTE | 2017-03-02 05:58 | HHI.HP ---
HPI Service Critical Care Medicine Primary Care Physician Unknown Admission Diagnosis Diagnosis: Chief Complaint: fatigue Travel History International Travel<30 Days: No Contact w/Intl Traveler <30 Da: No Traveled to Known Affected Are: No History of Present Illness This is a 62-year-old female with a history of lung cancer currently undergoing chemotherapy who is currently pancytopenic who presented yesterday the emergency department with fever, chills and fatigue and was found to have neutropenic sepsis and a postobstructive pneumonia. Per report, she did not want to be admitted to the hospital was sent home with a outpatient prescription for Levaquin. She represents today with severe fatigue she was found minimally responsive at home by EMS and given Narcan. She continues to endorse the same symptoms of fever, chills, productive cough, shortness of breath. She states the symptoms started a week ago. Review of Systems Constitutional: COMPLAINS OF: Diaphoretic episodes, Fatigue, Fever, Weight loss , Chills Respiratory: COMPLAINS OF: Cough, Wheezing, Sputum production, Shortness of breath Cardiovascular: COMPLAINS OF: Dyspnea on Exertion, DENIES: Chest pain, Palpitations, Syncope, Lower Extremity Edema Gastrointestinal: DENIES: Abdominal pain, Constipation, Diarrhea, Nausea, Vomiting Neurologic: DENIES: Headache Past Family Social History Allergies: Coded Allergies: codeine (Unverified Allergy, Severe, PT NOT ALLERGIC TO CODEINE, 03/01/17) Past Medical History Myelodysplastic syndrome Bone marrow transplant [id number] disease Lung cancer Past Surgical History Pseudoaneurysm repair Reported Medications Levaquin (Levofloxacin) 500 Mg Tablet 500 Mg PO DAILY 7 Days Oxycodone (Oxycodone HCl) 5 Mg Tab 5 Mg PO Q6H PRN Sertraline (Sertraline HCl) 50 Mg Tab 50 Mg PO DAILY Benadryl Allergy (Diphenhydramine HCl) 25 Mg Tablet 2 Tab Q6HR PRN Morphine IR (Morphine Sulfate) 15 Mg Tab 15 Mg PO Q6HR PRN Morphine ER (Morphine Sulfate) 30 Mg Tab 30 Mg PO BID Folic Acid 0.8 Mg Tab 1 Mg PO DAILY B12 (Cyanocobalamin) 1,000 Mcg Tab Tab PO DAILY Levetiracetam 500 Mg Tab 500 Mg PO BID Omeprazole 40 Mg Cap 40 Mg PO EVERY OTHER DAY Active Ordered Medications See MAR Family History Father with lung cancer Mother of adenocarcinoma Sister of lung and liver cancer Social History One half pack day smoking 10 years, quit in 2008 Denies alcohol Physical Exam Vital Signs Vital Signs Date Time Temp Pulse Resp B/P (MAP) Pulse Ox O2 Delivery O2 Flow Rate FiO2 03/02/17 04:16 152 40 156/68 (97) 98 Nasal Cannula 4.00 03/02/17 03:31 160 44 97 Nasal Cannula 4.00 03/02/17 03:30 97 Nasal Cannula 4.00 03/02/17 03:30 44 97 Nasal Cannula 4.00 03/02/17 03:28 97.9 171 44 116/69 (85) 84 Physical Exam GENERAL: Middle-aged female, lying in bed, in distress HEENT: Normocephalic. Atraumatic. Pupils equal, round, reactive, conjugate. Mucous membranes are moist NECK: Trachea is midline. There is no JVD. CHEST: Tachypneic, labored. On nasal cannula oxygen CARDIOVASCULAR: Cardiac rate, regular rhythm. Sinus by telemetry. Mildly hypotensive systolic 85. ABDOMEN: Soft, nontender, nondistended. No guarding. MUSCULOSKELETAL: Pulses 2+. No peripheral edema. NEUROLOGICAL: RASS 0. Follows commands all 4 extremities Laboratory Laboratory Tests Test 03/02/17 03:40 White Blood Count 0.5 Red Blood Count 3.68 Hemoglobin 9.9 Hematocrit 30.3 Mean Corpuscular Volume 82.5 Mean Corpuscular Hemoglobin 26.8 Mean Corpuscular Hemoglobin Concent 32.5 Red Cell Distribution Width 20.0 Platelet Count 19 Mean Platelet Volume 8.7 Neutrophils # (Auto) CBC Comment AUTO DIFF Differential Total Cells Counted 25 Neutrophils % (Manual) 8 Band Neutrophils % 4 Lymphocytes % 68 Monocytes % 20 Neutrophils # (Manual) 0.1 Differential Comment FINAL DIFF MANUAL Platelet Estimate LOW Platelet Morphology Comment NORMAL Red Cell Morphology Comment NORMAL Prothrombin Time 13.8 Prothromb Time International Ratio 1.2 Activated Partial Thromboplast Time 29.2 Blood Urea Nitrogen 37 Creatinine 2.57 Random Glucose 110 Total Protein 5.7 Albumin 1.6 Calcium Level 7.0 Alkaline Phosphatase 135 Aspartate Amino Transf (AST/SGOT) 41 Alanine Aminotransferase (ALT/SGPT) 57 Total Bilirubin 0.4 Sodium Level 142 Potassium Level 4.7 Chloride Level 112 Carbon Dioxide Level 17.1 Anion Gap 13 Estimat Glomerular Filtration Rate 19 Lactic Acid Level 6.6 Protein Corrected Calcium 7.7 Total Creatine Kinase 90 Troponin I 0.04 Date/Time Source Procedure Growth Status 03/02/17 03:40 Blood Peripheral Aerobic Blood Culture Pending Received 03/02/17 03:40 Blood Peripheral Anaerobic Blood Culture Pending Received Result Diagram: 03/02/1733903/02/17339 Imaging Last Impressions Head CT 03/02/17340 Signed Impressions: Service Date/Time: Thursday, March 02, 2017 04:58 - CONCLUSION: No acute intracranial disease. Right nasal fracture likely old. Derek Balderrama MD Chest X-Ray 03/02/17340 Signed Impressions: Service Date/Time: Thursday, March 02, 2017 03:44 - CONCLUSION: Right upper lobe opacity likely combination of mass and pneumonitis/infiltrate. MD Analia Bush VTE Risk Assessment Analia VTE Risk Assessment: Mod/High Risk (score >= 2) Caprini Risk Assessment Model Point Value = 1 Point Value = 2 Point Value = 3 Point Value = 5 Age 41-60 Minor surgery BMI > 25 kg/m2 Swollen legs Varicose veins or History of unexplained or recurrent spontaneous Oral contraceptives or hormone replacement Sepsis (< 1 month) Serious lung disease, including pneumonia (< 1 month) Abnormal pulmonary function Acute myocardial infarction Congestive heart failure (< 1 month) History of inflammatory bowel disease Medical patient at bed rest Age 61-74 Arthroscopic surgery Major open surgery (> 45 min) Laparoscopic surgery (> 45 min) Malignancy Confined to bed (> 72 hours) Immobilizing plaster cast Central venous access Age >= 75 History of VTE Family history of VTE Factor V Leiden Prothrombin [id number] Lupus anticoagulant Anticardiolipin antibodies Elevated serum homocysteine Heparin-induced thrombocytopenia Other congenital or acquired thrombophilia Stroke (< 1 month) Elective arthroplasty Hip, pelvis, or leg fracture Acute spinal cord injury (< 1 month) Prophylaxis Regimen Total Risk Factor Score Risk Level Prophylaxis Regimen 0-1 Low Early ambulation 2 Moderate Order ONE of the following: *Sequential Compression Device (SCD) *Heparin 5000 units SQ BID 3-4 Higher Order ONE of the following medications: *Heparin 5000 units SQ TID *Enoxaparin/Lovenox 40 mg SQ daily (WT < 150 kg, CrCl > 30 mL/min) *Enoxaparin/Lovenox 30 mg SQ daily (WT < 150 kg, CrCl > 10-29 mL/min) *Enoxaparin/Lovenox 30 mg SQ BID (WT < 150 kg, CrCl > 30 mL/min) AND/OR *Sequential Compression Device (SCD) 5 or more Highest Order ONE of the following medications: *Heparin 5000 units SQ TID (Preferred with Epidurals) *Enoxaparin/Lovenox 40 mg SQ daily (WT < 150 kg, CrCl > 30 mL/min) *Enoxaparin/Lovenox 30 mg SQ daily (WT < 150 kg, CrCl > 10-29 mL/min) *Enoxaparin/Lovenox 30 mg SQ BID (WT < 150 kg, CrCl > 30 mL/min) AND *Sequential Compression Device (SCD) Assessment and Plan Assessment and Plan Assessment: 62yF with neutropenic sepsis and pancytopenia, likely post- obstructive pneumonia. broad spectrum antibiotics and cultures. She is in multiorgan failure with kidney injury and her blood pressure is no longer responsive to ivf. She is declining into septic shock and is critically ill. Plan: Neutropenic Sepsis Post-obstructive pneumonia - vanc, cefepime - f/u sputum cultures, blood cultures Septic shock - mivf @ 125 cc/hr - norepinephrine for goal map > 65 mmHg - additional 1L NS now. - s/p 3L NS in the ED Lactic acidosis - secondary to sepsis - trend Acute kidney injury - secondary to sepsis - trend Cr on daily BMP Pancytopenia - secondary to chemotherapy - also possible history of MDS - trend on daily CBC - no signs of active bleeding - will not transfuse currently Hold pharmacologic DVT prophylaxis given thrombocytopenia SCDs Admit to the ICU. This patient remains critically ill with one or more organ systems which are or may become a threat to life. I have spent in excess of 33 minutes discontinuously in the care and management of this patient. This time is exclusive of procedures, and includes, but is not limited to, evaluation of the patient, review of the medical record, discussions with family, consultants, nursing staff, or respiratory therapy, and documentation in the medical record. Code Status The patient wants to talk with her , but is seriously considering DNR code status. Sanchez Gifford MD Mar 02, 2017 05:58
[2017-03-02 06:03] LABS: LACTIC ACID GHOST NOT REPORTABLE
[2017-03-02] MEDS: INSULIN NovoLIN REGULAR SUPPLEMENTAL SCALE SQ SCH ×3 (06:38→17:39)
[2017-03-02] MEDS: SODIUM CHLOR 0.9% 1000 ML INJ 1,000 ML IV SCH ×2 (06:38→10:36)
[2017-03-02] MEDS: NOREPINEPHRINE-DEXTROSE DRIP 250 ML IV PRN (06:46)
[2017-03-02] MEDS: RESP: ALBUTEROL 2.5 MG/IPRATROPIUM 0.5 MG NEB (SCH) INH ×3 (08:28→21:41)
[2017-03-02] MEDS: DOCUSATE SODIUM 50 MG/SENNA 8.6 MG TAB PO SCH ×2 (09:00→21:00)
[2017-03-02 12:42] LABS: BLOOD GAS BASE EXCESS -13.5 mmol/L (-2-2); BLOOD GAS CARBOXYHEMOGLOBIN 0.6 % (0-4); BLOOD GAS HCO3 12 mmol/L (22-26); BLOOD GAS METHEMOGLOBIN 1.8 % (0-2); BLOOD GAS O2 HGB SATURATION 97 % (90-100); BLOOD GAS OXYGEN CONTENT 13.2 Vol % (12.0-20.0); BLOOD GAS PCO2 26 mmHg (38-42); BLOOD GAS PO2 269 mmHg (61-120); BLOOD GAS TOTAL HGB 9.2 G/DL (12.0-16.0); CRITICAL VALUE YES; DRAW SITE RT RADIAL; FIO2 100 %; LITER FLOW 15 L/M; NUMBER OF ARTERIAL PUNCTURES 1; OXYGEN DEVICE NRM; STAT YES; TEMP CORR TO 98.6; ULNAR PULSE PRESENT
[2017-03-02] MEDS ORDERED: MORPHINE SULFATE 4 MG/ML INJ ONE (12:53)
[2017-03-02] MEDS ORDERED: LORazepam 2 MG/ML VIAL IV PUSH ONE (13:00)
[2017-03-02] MEDS ORDERED: MORPHINE SULFATE 2 MG/ML INJ IV PUSH ONE (13:00)
--- NOTE | 2017-03-02 13:36 | PD.CONS ---
Consult Service Palliative Care Consult Requested By Dr Ashton. Primary Care Physician Ayah Luis MD Reason for Consultation a. To assist with evaluation and management of symptoms including: dyspnea, anxiety b. To assist medical decision maker(s) with: better understanding of current medical conditions; weighing benefits/burdens of medical treatment options; making medical treatment decisions. HPI History of Present Illness This 62-year-old presented to the ED 03/02 around 3 AM with reports of altered mental status, tachycardia. She apparently just presented to the ED the day prior 03/01 with complaints of fever, chills, fatigue. At that ER evaluation she was found to be neutropenic, with pneumonia she was started on Levaquin and discharged to follow-up with her known oncologist for labs etc. Sunday. She apparently was minimally responsive in the home, EMS responded she received Narcan. At the time of EMS evaluation reported fever, chills, productive cough , shortness of breath, onset about a week prior. * In the ED patient received IV fluids, CXR= right upper lobe opacity with likely combination of mass, pneumonitis, infiltrate. CTA of the chest could not be performed due to creatinine which has increased to 2.3 from around 1.0 12 hours ago. He was started on cefepime due to recent neutropenia findings in ED. WBC 0.5. Hemoglobin 9.9, hematocrit 30.3. Lactic acid 6.6, also started on Vanco. Patient endorsed feeling somewhat better after IV fluids. Platelets noted to be 19, this was discussed with Dr. Loree lassiter/oncology who indicated hold off on transfusion. CT brain= no acute process. She was admitted to ICU. 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 Apparently recently underwent XRT to brain,spine. Just completed 2nd chemotherapy treatment about [address] of chest done at [facility] apparently showing increase in mass size from prior exam per EMR. MRI of the brain obtained with findings of metastatic disease at T10, 11, 12 without soft tissue mass, MRI brain with mass identified within left cerebella peduncle projecting into fourth ventricle without associated edema, second rim-enhancing mass in the right temporal lobe. Patient followed with Dr. Morris for these findings; surgical procedure was not recommended, she was started on steroids and recommended for stereotactic radiosurgery. Dr. Morris further notes during his consultation that in his opinion her cancer is incurable. Patient seen in room with primary nurse at bedside as well as . rn licensed practical also present for part of my interaction. Patient is alert , oriented and appropriate though visibly very short of breath and this limits her conversation. She is able to detail her medical history reasonably, with her assisting as needed at times she defers to him. Review of current acute hospitalization and treatment for neutropenia, pneumonia ; view of limited options, that to effectively treat she would likely require intubation and ongoing aggressive medical interventions not known how long ventilator course she would require or if she would readily wean off of vent given her underlying malignancy process. Alternatively review option of comfort measures with no intubation, no further invasive or lifesaving measures , with the expected outcomes to be continued decline and in a period of hours to days. Patient, supported by is very firm in expressing that she does not desire intubation or any other further heroic measures CPR, she understands the implications, understands as well, they agreed to DNR status and comfort measures. Advised to comfort medicines such as benzodiazepines and opiates can be administered which will soothe and provide her comfort, but will not prevent ongoing decline and eventual . She again expresses comfort goals. D/w RN, critical care. attempted to reach Dr Cole known oncologist via office number, to notify/discuss. Message left w NIKKI with my contact information. now orders entered for morphine, ativan to relieve acute dyspnea and associated anxiety (she has tolerated PO morphine well out pt per ) Once meds given, met again w pt, spouse. Pt lethargic wakes at times. Further review pt recent hx, tx options going forward. Spouse indicates pt overall not feeling well in the past few weeks. He feels that she knew she was declining. Their 3 adult children are traveling from out of state, son arriving late tonight, daughters Sunday, Sunday. Review of options going forward with comfort measures including Bipap, pressorts, other escalation short of CPR. No bipap per spouse, affirms DNR status. Would want pressors, cont antibiotics, IVF to try to keep pt stable until her family arrives and is able to see her. Open to discontinuation of presssors, weaning NRB O2 etc once family arrives. . Function/Cognitive Trajectory lived at home w , usually cognitively sharp. Generalized weakness, progressive in the past few weeks. Ambulating short distances approx 4-5ft, otherwise limited due to dyspnea, weakness. Appetite good until past few days. . Review of Systems ROS Limitations: Other (tachypnea, dyspnea) Constitutional: COMPLAINS OF: Fever, Chills, Dizziness, Generalized weakness Eyes: DENIES: Vision loss Ears, nose, mouth, throat: DENIES: Oral lesions, Throat pain, Hoarseness Respiratory: COMPLAINS OF: Cough, Sputum production, Shortness of breath, DENIES: Apneas Cardiovascular: COMPLAINS OF: Dyspnea on Exertion, DENIES: Chest pain, Palpitations, Lower Extremity Edema Gastrointestinal: COMPLAINS OF: Nausea, Vomiting, DENIES: Abdominal pain, Difficulty Swallowing Integumentary: DENIES: Rash Neurologic: COMPLAINS OF: Paresthesias (slight leg numbness ongoing), DENIES: Headache Psychiatric: COMPLAINS OF: Anxiety (today) Past Family Social History Coded Allergies: codeine (Unverified Allergy, Severe, PT NOT ALLERGIC TO CODEINE, 03/01/17) Past Medical History Lung malignancy 6.24.8 cm. cancer dx 09/2016? 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 Past Surgical History Exploration right groin, isolation, femoral and external iliac arteries repair of artery with saphenous vein patch 09/2016 . Reported Medications Levaquin (Levofloxacin) 500 Mg Tablet 500 Mg PO DAILY 7 Days Oxycodone (Oxycodone HCl) 5 Mg Tab 5 Mg PO Q6H PRN Sertraline (Sertraline HCl) 50 Mg Tab 50 Mg PO DAILY Benadryl Allergy (Diphenhydramine HCl) 25 Mg Tablet 2 Tab Q6HR PRN Morphine IR (Morphine Sulfate) 15 Mg Tab 15 Mg PO Q6HR PRN Morphine ER (Morphine Sulfate) 30 Mg Tab 30 Mg PO BID Folic Acid 0.8 Mg Tab 1 Mg PO DAILY B12 (Cyanocobalamin) 1,000 Mcg Tab Tab PO DAILY Levetiracetam 500 Mg Tab 500 Mg PO BID Omeprazole 40 Mg Cap 40 Mg PO EVERY OTHER DAY . Current Medications Medications (Trade) Dose Ordered Sig/Lisa Route Start Time Stop Time Status Last Admin Pharmacy Profile Note 0 ml @ 0 mls/hr UNSCH OTHER 03/02/17 05:45 Cefepime HCl 2000 mg/Sodium Chloride 100 ml @ 200 mls/hr Q24H IV 03/03/17 04:00 (D50w (Vial) Inj) 25 ml UNSCH PRN IV PUSH 03/02/17 05:45 (NovoLIN R SUPPLEMENTAL SCALE) 1 Q6HR SQ 03/02/17 06:00 (Duoneb Neb) 1 ampule Q6HR NEB INH 03/02/17 10:00 (Duoneb Neb) 1 ampule Q2HR NEB PRN INH 03/02/17 05:45 Sodium Chloride 1,000 ml @ 120 mls/hr Q8H20M IV 03/02/17 05:32 03/02/17 10:36 (Tylenol) 650 mg Q6H PRN PO 03/02/17 05:45 (Zofran Inj) 4 mg Q6H PRN IV PUSH 03/02/17 05:45 Miscellaneous Information 1 Q361D XX 03/02/17 05:45 (Chlorhexidine 2% Cloth) 3 pack Taper DAILY@04 TOP 03/03/17 04:00 02/27/18 03:59 (Chlorhexidine 2% Cloth) 3 pack UNSCH PRN TOP 03/02/17 05:45 (Patricia-Colace) 1 tab BID PO 03/02/17 09:00 Norepinephrine Bitartrate 250 ml @ 7.5 mls/hr TITRATE PRN IV 03/02/17 05:45 03/02/17 06:46 (Brethine Inj) 1 mg UNSCH PRN SQ 03/02/17 05:45 Family History Strong family history of cancer: father from lung cancer, mother adenocarcinoma, sister of lung and liver cancer Substance Use Tobacco: One half PPD 10 years quit 2008 Alcohol: None Prescription med abuse: None Illicits: None . Psychosocial History to her 36 years. Formerly worked in the [employer] industry (was actually hired by her , is how they met). Partially from [place] has lived in [place] for about 4 years, moved here for senior living. Has 3 children who do not live in this area. Spiritual/Cultural Factors No particular affiliation, Does not want homemaking rehabilitation consultant visits Living Will: Completed, but not made available Health Care Surrogate: Completed, but not made available Ethical and Legal Issues Patient oriented and appears capacitated and able to make decisions. Given fluctuating oxygenation status decision-making should be supported by appropriate legal decision maker and/or family. They indicate is designated HCS. We do not have copies of advanced directive this time. Per [place] statutes spouse would be appropriate legal proxy. Physical Exam Vital Signs Date Time Temp Pulse Resp B/P (MAP) Pulse Ox O2 Delivery O2 Flow Rate FiO2 03/02/17 12:14 99 Non-Rebreather 03/02/17 11:29 (70) Non-Rebreather 13.00 03/02/17 11:05 130 121/57 03/02/17 10:34 126 87/64 03/02/17 09:40 127 93/56 03/02/17 08:55 127 102/50 03/02/17 08:07 129 94/51 03/02/17 07:10 130 99/55 03/02/17 07:08 131 28 99/55 (70) 100 Non-Rebreather 13.00 03/02/17 06:50 129 32 77/47 (57) 98 Nasal Cannula 4.00 03/02/17 06:46 130 107/58 03/02/17 06:40 128 30 107/58 (74) 97 Nasal Cannula 4.00 03/02/17 05:50 98.7 136 40 78/50 (59) 97 Nasal Cannula 4.00 03/02/17 04:16 152 40 156/68 (97) 98 Nasal Cannula 4.00 03/02/17 03:31 160 44 97 Nasal Cannula 4.00 03/02/17 03:30 97 Nasal Cannula 4.00 03/02/17 03:30 44 97 Nasal Cannula 4.00 03/02/17 03:28 97.9 171 44 116/69 (85) 84 03/02/17 03/03/17 19:00 07:00 Intake Total 1515.5 ml Balance 1515.5 ml Intake IV Total 1515.5 ml # Bowel Movements 1 Exam CONSTITUTIONAL/GENERAL: This is an adequately nourished patient, tachypneic , anxious TUBES/LINES/DRAINS: Peripheral IV bilateral upper extremities, NRB O2 mask SKIN: No jaundice, rashes, or lesions. Pale. No wounds seen anteriorly. Skin temperature appropriate-- distal feet cool. HEAD: Atraumatic. Normocephalic. EYES: Pupils equal and round and reactive. Extraocular motions intact. No scleral icterus. No injection or drainage. Fundi not examined. ENT: Hearing grossly normal. Nose without bleeding or purulent drainage. limited oropharynx exam due to did not remove nonrebreather mask NECK: Trachea midline. Supple, nontender. No palpable thyroid enlargement or nodularity. CARDIOVASCULAR: Regular rate and rhythm without murmurs, tachycardic rate 120s. No JVD. Pedal pulses faint. Distal feet cool, some bluish discoloration of toes. RESPIRATORY/CHEST: Symmetric, mildly labored respirations. Tachypneic respiratory rate 26-28. Decreased air movement throughout, expiratory wheezes GASTROINTESTINAL: Abdomen soft, non-tender, nondistended. No hepato-splenomegaly , or palpable masses. No guarding. Bowel sounds present. GENITOURINARY: Without palpable bladder distension. MUSCULOSKELETAL: Extremities without clubbing, cyanosis, or edema. No joint tenderness or effusion noted.+ Some mottling/bluish discoloration to distal toes.. LYMPHATICS: No palpable cervical or supraclavicular adenopathy. NEUROLOGICAL: Awake and alert. Oriented 3, appropriate. Reasonable insight. Motor and sensory grossly within normal limits. Follows commands. Cognitively sharp. Moves all 4 extremities. PSYCHIATRIC: Mild anxiety. no apparent hallucinations or other psychotic thought process. Diagnostic Tests Laboratory Laboratory Tests Test 03/02/17 03:40 03/02/17 06:30 03/02/17 11:25 03/02/17 12:25 White Blood Count 0.5 TH/MM3 (4.0-11.0) Red Blood Count 3.68 MIL/MM3 (4.00-5.30) Hemoglobin 9.9 GM/DL (11.6-15.3) Hematocrit 30.3 % (35.0-46.0) Mean Corpuscular Volume 82.5 FL (80.0-100.0) Mean Corpuscular Hemoglobin 26.8 PG (27.0-34.0) Mean Corpuscular Hemoglobin Concent 32.5 % (32.0-36.0) Red Cell Distribution Width 20.0 % (11.6-17.2) Platelet Count 19 TH/MM3 (150-450) Mean Platelet Volume 8.7 FL (7.0-11.0) Neutrophils # (Auto) TH/MM3 (1.8-7.7) CBC Comment AUTO DIFF Differential Total Cells Counted 25 Neutrophils % (Manual) 8 % (16-70) Band Neutrophils % 4 % (0-6) Lymphocytes % 68 % (9-44) Monocytes % 20 % (0-8) Neutrophils # (Manual) 0.1 TH/MM3 (1.8-7.7) Differential Comment FINAL DIFF MANUAL Platelet Estimate LOW (NORMAL) Platelet Morphology Comment NORMAL (NORMAL) Red Cell Morphology Comment NORMAL (NORMAL) Prothrombin Time 13.8 SEC (9.8-11.6) Prothromb Time International Ratio 1.2 RATIO Activated Partial Thromboplast Time 29.2 SEC (24.3-30.1) Blood Urea Nitrogen 37 MG/DL (7-18) Creatinine 2.57 MG/DL (0.50-1.00) Random Glucose 110 MG/DL (74-106) Total Protein 5.7 GM/DL (6.4-8.2) Albumin 1.6 GM/DL (3.4-5.0) Calcium Level 7.0 MG/DL (8.5-10.1) Alkaline Phosphatase 135 U/L (45-117) Aspartate Amino Transf (AST/SGOT) 41 U/L (15-37) Alanine Aminotransferase (ALT/SGPT) 57 U/L (10-53) Total Bilirubin 0.4 MG/DL (0.2-1.0) Sodium Level 142 MEQ/L (136-145) Potassium Level 4.7 MEQ/L (3.5-5.1) Chloride Level 112 MEQ/L (98-107) Carbon Dioxide Level 17.1 MEQ/L (21.0-32.0) Anion Gap 13 MEQ/L (5-15) Estimat Glomerular Filtration Rate 19 ML/MIN (>89) Lactic Acid Level 6.6 mmol/L (0.4-2.0) 1.6 mmol/L (0.4-2.0) Protein Corrected Calcium 7.7 MG/DL (8.5-10.1) Total Creatine Kinase 90 U/L (26-192) Troponin I 0.04 NG/ML (0.02-0.05) Blood Gas Puncture Site RT RADIAL Blood Gas Patient Temperature 98.6 Blood Gas HCO3 12 mmol/L (22-26) Blood Gas Base Excess -13.5 mmol/L (-2-2) Blood Gas Oxygen Saturation 97 % (90-100) Arterial Blood pH 7.29 (7.380-7.420) Arterial Blood Partial Pressure CO2 26 mmHg (38-42) Arterial Blood Partial Pressure O2 269 mmHg (61-120) Arterial Blood Oxygen Content 13.2 Vol % (12.0-20.0) Arterial Blood Carboxyhemoglobin 0.6 % (0-4) Arterial Blood Methemoglobin 1.8 % (0-2) Blood Gas Hemoglobin 9.2 G/DL (12.0-16.0) Oxygen Delivery Device NRM Blood Gas Liter Flow 15 L/M Blood Gas Inspired Oxygen 100 % Result Diagram: 03/02/1733903/02/17339 Microbiology Microbiology Date/Time Source Procedure Growth Status 03/02/17 03:40 Blood Peripheral Aerobic Blood Culture Pending Received 03/02/17 03:40 Blood Peripheral Anaerobic Blood Culture Pending Received 03/02/17 03:30 Blood Peripheral Aerobic Blood Culture Pending Received 03/02/17 03:30 Blood Peripheral Anaerobic Blood Culture Pending Received Imaging Last Impressions Head CT 03/02/17340 Signed Impressions: Service Date/Time: Thursday, March 02, 2017 04:58 - CONCLUSION: No acute intracranial disease. Right nasal fracture likely old. Derek Balderrama MD Chest X-Ray 03/02/17340 Signed Impressions: Service Date/Time: Thursday, March 02, 2017 03:44 - CONCLUSION: Right upper lobe opacity likely combination of mass and pneumonitis/infiltrate. Derek Balderrama MD Patient/Family Conference Family Conference Time (mins): 35 Family Conference Location: Bedside Issues Discussed: Met with patient, patient's spouse, twice at bedside, discussion included the following: * Palliative care role, purpose, approach * Additional medical, psychosocial, and spiritual history * Patients general health, functional status, and cognitive changes in the months leading up to the current hospitalization * Patient/family understanding of the current medical problems * Patient/family understanding of prognosis * Patients goals of care, pt indicates has living will, brought a copy during recent hospital admission * HCS- pt indicates spouse is designated HCS. * Code status-- elects DNR status, * Current medical treatment options and benefits/burdens of those options * Likely scenarios comparing ongoing aggressive care with a transition to comfort measures only- extensive review of ongoing aggressive tx, versus comfort measures and expected outcomes , pt supported by , elects DNR, comfort measures only. They would like to continue some aggressive tx like pressors, NRB O2 until additional family arrives, open to meet w hospice once all family has arrived. NO BIPAP * Questions answered to the best of my ability * Palliative care contact information provided Assessment and Plan Disease Oriented Problem List: (1) Lung mass (2) Neutropenia (3) Severe sepsis (4) Pneumonia (5) FH: cancer of respiratory and intrathoracic organs Symptom Scale: (1) Dyspnea (2) Anxiety (3) Pain Pertinent Non-Medical Issues Psychosocial: to her 36 years. Formerly worked in the [employer] industry (was actually hired by her , is how they met). Partially from [place] has lived in [place] for about 4 years, moved here for senior living. Has 3 children who do not live in this area. Spiritual:No particular affiliation, Does not want homemaking rehabilitation consultant visits Legal:Patient oriented and appears capacitated and able to make decisions. Given fluctuating oxygenation status decision-making should be supported by appropriate legal decision maker and/or family. They indicate is designated HCS. We do not have copies of advanced directive this time. Per [employer] statutes spouse would be appropriate legal proxy. Ethical issues impacting care: Important Contacts Carlos Hilton [phone] . Prognosis this pt was admitted for AMS, pneumonia , neutropenia. She has underlying diagnosis of lung cancer, though exact staging is not known. Apparently is advanced, metastatic to brain, Tspine s/p radiation, has undergone 2 chemotherapy treatments. Currently in respiratory distress, high risk for further decompensation and . Appropriate for hospice if goals compatible. . Code Status: No Code Plan * Legal decision maker:Patient oriented and appears capacitated and able to make decisions. Given fluctuating oxygenation status decision-making should be supported by appropriate legal decision maker and/or family. They indicate is designated HCS. We do not have copies of advanced directive this time. Per [employer] statutes spouse would be appropriate legal proxy. * Goals: Comfort oriented. Patient very clearly indicates desire for DNR, no intubation with critical care, RN, palliative, patient present. NO bipap. OK with NRB mask, Ok w pressors until additional family arrives. * CODE STATUS: DNR * SYMPTOMS: --Dyspnea- recent lung cancer diagnosis, s/p chemo x2, + pneumonia, neutropenic- on NRB mask, + tachypneic. Orders for morphine, ativan now x1, as well as ongoing PRN for dyspnea, comfort. family open to hospice consultation once additional family has arrived. NO bipap. -- anxiety- anxiety associated with shortness of breath,advanced lung cancer. prn ativan ordered. --Pain- some chronic pain to RLE since recent CV stenting procedure. used prn morphine IR PO at home a few times per day, well controlled. will add prn morphine for dyspnea, pain. * Palliative care will continue to follow during hospital course as condition evolves, to assist patient/decision-maker with understanding of medical conditions, weighing benefits/burdens of treatment options, for clarification of goals of treatment. Additionally will assist with any symptoms of palliative concern . Time Spent Total Floor Time (mins): 65 (d/w critical care, rn, exam, chart review, meeting w pt/family ) Thank you for the opportunity to participate in the care of Ms. Hilton. Attestation To help prompt me to consider important information that might be impacting today's encounter and assessment, information from prior notes written by myself or my colleagues may have been "brought forward" into today's note. My signature on this note, however, is an attestation that I personally performed the exam, history, and/or decision-making noted today, and, unless otherwise indicated, the interactions with patient, family, and staff as well as the review of records all occurred today. I also attest that the listed assessment and stated plan reflect my best clinical judgment today based on the combination of historical information, prior notes, and today's exam/ interactions. When time spent is documented, it refers only to time spent today by the signer, or if indicated, combined time spent today by collaborating physician/nurse practitioner. Coral Alejandro Mar 02, 2017 13:36
[2017-03-02] MEDS: MORPHINE SULFATE 2 MG/ML INJ IV PUSH PRN ×2 (17:39→22:31)
[2017-03-02] MEDS: LORazepam 2 MG/ML VIAL IV PUSH PRN ×2 (18:33→22:31)
--- NOTE | 2017-03-02 21:18 | EKG ---
Date Performed: 03/02/2017 Time Performed: 08:23:07 PTAGE: 62 years EKG: SINUS TACHYCARDIA ABNORMAL RHYTHM ECG NO PREVIOUS TRACING DOCTOR: Elliott Olmstead Interpretating Date/Time 03/02/2017 21:16:50
--- NOTE | 2017-03-02 21:22 | EKG ---
Date Performed: 03/02/2017 Time Performed: 03:29:32 PTAGE: 62 years EKG: SINUS TACHYCARDIA MARKED LEFT AXIS DEVIATION PATTERN CONSISTENT WITH PULMONARY DISEASE ABN ORMAL ECG BASELINE ARTIFACT PREVIOUS TRACING : 03/01/2017 12.41 Compared to prior tracing no significant change DOCTOR: Elliott Olmstead Interpretating Date/Time 03/02/2017 21:21:27
[2017-03-03] VITALS (17 sets, daily range): BP systolic 86–116; BP diastolic 49–58; PULSE 109–124; RESP 15–24; TEMP 97.2–98.9; O2SAT 99–100
[2017-03-03] MEDS ORDERED: FILGRASTIM 480 MCG/1.6 ML VIAL SQ ONE
[2017-03-03] MEDS ORDERED: ACETAMINOPHEN 1000 MG/100 ML 65 ML IV PRN
[2017-03-03] MEDS ORDERED: Vancomycin Consult Pharmacy 1 EA OTHER SCH
[2017-03-03 00:15] LABS: BLOOD GAS BASE EXCESS -14.7 mmol/L (-2-2); BLOOD GAS CARBOXYHEMOGLOBIN 0.4 % (0-4); BLOOD GAS HCO3 11 mmol/L (22-26); BLOOD GAS METHEMOGLOBIN 1.8 % (0-2); BLOOD GAS O2 HGB SATURATION 97 % (90-100); BLOOD GAS OXYGEN CONTENT 20.6 Vol % (12.0-20.0); BLOOD GAS PCO2 23 mmHg (38-42); BLOOD GAS PO2 308 mmHg (61-120); BLOOD GAS TOTAL HGB 14.6 G/DL (12.0-16.0); TEMP CORR TO 98.6
[2017-03-03 00:16] LABS: CRITICAL VALUE YES; DRAW SITE RT RADIAL; FIO2 100 %; LITER FLOW 15 L/M; NUMBER OF ARTERIAL PUNCTURES 1; OXYGEN DEVICE NRB MASK; STAT YES; ULNAR PULSE PRESENT
--- NOTE | 2017-03-03 00:19 | MB ---
cc: GENET SMITH DATE OF CONSULTATION 03/02/17 DATE OF 1955 REASON FOR CONSULTATION Patient with diagnosis of stage IV lung adenocarcinoma who presents to the emergency department with worsening dyspnea and altered mental status. HISTORY OF PRESENT ILLNESS This is a 62-year-old female who was recently diagnosed with stage IV lung cancer. She has brain mets and received radiation treatments to the brain mass. She is currently receiving systemic chemotherapy consisting of carboplatin and Alimta. Her most recent treatment was approximately 1 week ago. She has a past medical history of myelofibrosis and a myeloproliferative neoplasm diagnosed in early . She underwent a bone marrow transplant at the [facility]. She was deemed to be cured. She now presents to the emergency department with progressive dyspnea, weakness and altered mental status. The patient had earlier presented to the emergency department yesterday. She was found to be neutropenic. A hospital admission was recommended, however, the patient declined and wanted to go home. She was discharged from the emergency department with oral antibiotics. She, however, became ill and was confused and unresponsive and was again brought to the emergency room. Upon arrival she was awake and able to have a conversation. She was admitted to the intensive care unit. The patient indicated at the time of admission that she would not like to be intubated and made DNR. The patient was found to be severely neutropenic with ANC of less than 500. Her platelet count was very low at 19,000. Serum chemistries showed acute renal failure with creatinine of 2.57, lactic acid was elevated at 6.6. Liver functions were also elevated, AST of 41, ALT 57, alk phos of 135, creatinine kinase 190. Troponin were at 0.04. She had an x-ray on admission which showed a right upper lobe opacity with a combination of mass as well as pneumonia. The patient was started on IV antibiotics including cefepime and vancomycin on admission. Blood cultures were obtained which are pending. The patient is currently on oxygen mask. Her O2 sats are almost at 100%. She, however, is tachypneic. Palliative care has seen the patient and she is receiving morphine and Ativan injections. She opens her eyes and responds to some questions. Her is at bedside. REVIEW OF SYSTEMS Unable to obtain due to the patient's mental status. PAST MEDICAL HISTORY Stage IV lung adenocarcinoma, myeloproliferative neoplasm, status post bone marrow transplant. PAST SURGICAL HISTORY Lung biopsy, pseudoaneurysm repair. FAMILY HISTORY Unable to be obtained at this time but she does have family history of lung cancer and liver cancer. SOCIAL HISTORY Unable to be obtained. From her previous records she smoked for 10 years and quit in 2008. No illicit drug use. PHYSICAL EXAMINATION VITAL SIGNS: Blood pressure is 105/54, pulse is in the 100, temperature is 98, O2 sats are 100%. GENERAL: Acutely ill patient who appears to be tachypneic and in [id number] distress. HEENT: Pupils are equal, round, reactive to light. EOMI. No oral thrush. No oral lesions. NECK: Neck is supple. No JVD. No bruits. No lymphadenopathy. LUNGS: Bilateral coarse sounds. CARDIAC: Tachycardiac. ABDOMEN: Soft, nontender, nondistended. Bowel sounds are present. EXTREMITIES: Without any edema, erythema or cyanosis. SKIN: Without any petechiae, lesion or bruises. NEURO: The patient is sedated. No apparent focal deficits. PSYCHIATRIC: Unable to be obtained. LABORATORY DATA WBC 0.5, hemoglobin 9.9, platelet count 19. Serum chemistries, sodium 142, potassium 4.7, chloride 112, CO2 17.1, BUN 37, creatinine 2.57, lactic acid 6.6, albumin 1.6. IMAGING STUDIES Chest x-ray was reviewed in the EMR. A CT of the head was also obtained on admission with no acute intracranial abnormalities. ASSESSMENT/PLAN This is a 61-year-old female with stage IV lung cancer who was admitted to the hospital after she presented with progressive dyspnea and altered mental status. 1. Severe neutropenia with pneumonia and respiratory distress. The patient has decided to be DNR. She does not want to be intubated. She is currently on oxygen mask. She is currently receiving IV cefepime. I will expand the coverage to add vancomycin. Blood cultures are pending. The stated that he would like to continue with antibiotic therapy. He also wants to have IV fluids given. He, again, stated that the patient wishes were not to be intubated. The later agreed to Bipap therapy if needed. 2. Severe thrombocytopenia. Platelet count is 19. I would recommend giving 1 unit of platelets given that she is acutely ill and we will try to keep PLT count > 20,000 3. Lactic acidosis and respiratory failure as above secondary to gram negative sepsis 4. Malnutrition and hypoalbuminemia. 5. Respiratory distress: ABG's, Nasal cannula and Bipap if needed. repeat chest x ray in am Thank you for allowing me to participate in the care of this patient. I will continue to follow this patient along. MD JULIÁN Wei/IRWIN /11:28 PM /11:48 PM MTDLorrie
[2017-03-03 00:52] LABS: HEMATOCRIT 22.2 % (35.0-46.0); MEAN CELL VOLUME 81.5 FL (80.0-100.0); MEAN CORPUSCULAR HEMOGLOBIN 27.6 PG (27.0-34.0); MEAN CORPUSCULAR HGB CONC 33.8 % (32.0-36.0); RED BLOOD COUNT 2.73 MIL/MM3 (4.00-5.30); RED CELL DISTRIBUTION WIDTH 20.8 % (11.6-17.2); WHITE BLOOD COUNT 0.3 TH/MM3 (4.0-11.0)
[2017-03-03 00:58] LABS: HEMO FLAGS AUTO DIFF
[2017-03-03 01:04] LABS: PLATELET COUNT 10 TH/MM3 (150-450)
[2017-03-03 01:17] LABS: BICARBONATE 12.8 MEQ/L (21.0-32.0); POTASSIUM 4.1 MEQ/L (3.5-5.1); TOTAL BILIRUBIN ADULT 0.4 MG/DL (0.2-1.0)
[2017-03-03 01:21] LABS: CALCIUM-PROTEIN CORRECTED 6.1 MG/DL (8.5-10.1)
[2017-03-03] MEDS: LORazepam 2 MG/ML VIAL IV PUSH PRN ×6 (01:40→22:25)
[2017-03-03] MEDS: MORPHINE SULFATE 2 MG/ML INJ IV PUSH PRN ×6 (01:40→22:27)
[2017-03-03] MEDS: SODIUM CHLOR 0.9% 1000 ML INJ 1,000 ML IV SCH ×3 (01:42→18:00)
[2017-03-03 01:46] LABS: BANDS 4 % (0-6); CORRECTED NUCLEATED RBC 10 /100 WBC (0-0); EOSINOPHILS 2 % (0-4); METAMYELOCYTES 4 % (0-1); POLYS (SEG NEUTROPHILS) 48 % (16-70); WBC DIFF SAMPLE 50
[2017-03-03 01:48] LABS: NEUTROPHIL # MANUAL DIFF 0.2 TH/MM3 (1.8-7.7)
[2017-03-03 01:50] LABS: KERATOCYTES OCC (NORMAL); PLATELET ESTIMATE SMEAR RARE (NORMAL); PLATELET MORPHOLOGY NORMAL (NORMAL); SCAN/DIFF FINAL DIFF MANUAL; SPHEROCYTES OCC (NORMAL)
[2017-03-03] MEDS: RESP: ALBUTEROL 2.5 MG/IPRATROPIUM 0.5 MG NEB (SCH) INH ×4 (03:50→19:49)
[2017-03-03] MEDS: CHLORHEXIDINE GLUCONATE 2 % 1 PACK (2 CLOTHS) TOP SCH (04:00)
[2017-03-03] MEDS ORDERED: CEFEPIME INJ 2,000 MG in SODIUM CHLORIDE 0.9% INJ 100 ML IV SCH (04:00)
[2017-03-03] MEDS: INSULIN NovoLIN REGULAR SUPPLEMENTAL SCALE SQ SCH ×5 (06:00→22:34)
[2017-03-03] MEDS: DOCUSATE SODIUM 50 MG/SENNA 8.6 MG TAB PO SCH ×2 (08:25→20:24)
[2017-03-03] MEDS ORDERED: CALCIUM GLUCONATE INJ 1 GM in SODIUM CHLORIDE 0.9% INJ 100 ML IV ONE (09:00)
[2017-03-03 09:30] LABS: HEMATOCRIT 36.6 % (35.0-46.0); MEAN CELL VOLUME 82.6 FL (80.0-100.0); MEAN CORPUSCULAR HEMOGLOBIN 26.9 PG (27.0-34.0); MEAN CORPUSCULAR HGB CONC 32.5 % (32.0-36.0); PLATELET COUNT 21 TH/MM3 (150-450); RED BLOOD COUNT 4.44 MIL/MM3 (4.00-5.30); RED CELL DISTRIBUTION WIDTH 21.5 % (11.6-17.2); WHITE BLOOD COUNT 0.4 TH/MM3 (4.0-11.0)
[2017-03-03 09:32] LABS: HEMO FLAGS AUTO DIFF
[2017-03-03 09:38] LABS: BICARBONATE 12.2 MEQ/L (21.0-32.0)
[2017-03-03 10:01] LABS: BANDS 2 % (0-6); CALCIUM-PROTEIN CORRECTED 6.4 MG/DL (8.5-10.1); METAMYELOCYTES 2 % (0-1); POLYS (SEG NEUTROPHILS) 26 % (16-70); WBC DIFF SAMPLE 50
[2017-03-03 10:03] LABS: NEUTROPHIL # MANUAL DIFF 0.1 TH/MM3 (1.8-7.7); PLATELET ESTIMATE SMEAR LOW (NORMAL); PLATELET MORPHOLOGY NORMAL (NORMAL); SCAN/DIFF FINAL DIFF MANUAL
[2017-03-03 10:04] LABS: ACANTHOCYTES OCC (NORMAL); BURR CELLS 1+ (NORMAL)
--- NOTE | 2017-03-03 11:54 | RADRPT ---
EXAM DATE/TIME: 03/03/2017 11:36 [facility] COMPARISON: CHEST SINGLE AP, November 30, 2016, 16:41. CHEST SINGLE AP, March 02, 2017, 3:44. INDICATIONS : Shortness of breath. MEDICAL HISTORY : Carcinoma, lung. Chronic obstructive pulmonary disease. SURGICAL HISTORY : Infusa port.Tonsillectomy. Tubal ligation. Bone marrow transplant. ENCOUNTER: Subsequent ACUITY: 4 - 6 days PAIN SCORE: Non-responsive. LOCATION: Bilateral chest FINDINGS: There is a left-sided [id number] in place with the tip overlying the SVC. The heart size is normal . There is persistent and worsening increased density in the right upper lung. There some interstitia l proximal prominence seen at the right lower lobe. The left lung is grossly clear. Calcified nodes a re seen in the left hilar region. CONCLUSION: 1. Persistent and worsening right upper lobe consolidation/mass. 2. Interstitial prominence of the right lower lung. Erickson Collado MD on March 03, 2017 at 11:51 Board Certified Radiologist. This report was verified electronically.
[2017-03-03] MEDS ORDERED: Custom Consult Pharmacy 1 EA OTHER SCH (13:30)
--- NOTE | 2017-03-03 13:58 | HHI.CCPN ---
Subjective Remarks/Hospital Course This is a 62-year-old female with a history of lung cancer currently undergoing chemotherapy who is currently pancytopenic who presented yesterday the emergency department with fever, chills and fatigue and was found to have neutropenic sepsis and a postobstructive pneumonia. Per report, she did not want to be admitted to the hospital was sent home with a outpatient prescription for Levaquin. She represents today with severe fatigue she was found minimally responsive at home by EMS and given Narcan. She continues to endorse the same symptoms of fever, chills, productive cough, shortness of breath. She states the symptoms started a week ago. Subjective: 03/03: No acute events overnight. Yesterday the patient informed the staff that she would like to be a DNR, and would like comfort care measures initiated , no intubation. Palliative care was consulted, and plan for possible transfer the hospice in the few days or continued comfort care measures. The patient remains on Norepinephrine at 2 mcgs, antibiotics and O2. Right lower extremity noted to be cool to touch discolored cyanotic, arterial Doppler study pending. Patient was noted not to have any urine output for several hours ordered Manzanares catheter insertion. Objective Vital Signs Date Time Temp Pulse Resp B/P (MAP) Pulse Ox O2 Delivery O2 Flow Rate FiO2 03/03/17 08:33 100 Nasal Cannula 4.00 03/03/17 06:00 114 03/03/17 04:00 97.7 17 95/49 (64) 03/02/17 21:41 100 Intake and Output 03/03/17 03/03/17 03/04/17 08:00 16:00 00:00 Intake Total 2233 ml 110 ml Balance 2233 ml 110 ml Result Diagram: 03/03/17 0903/03/17901 Other Results Laboratory Tests Test 03/02/17 23:56 Blood Gas Puncture Site RT RADIAL Blood Gas Patient Temperature 98.6 Blood Gas HCO3 11 mmol/L (22-26) Blood Gas Base Excess -14.7 mmol/L (-2-2) Blood Gas Oxygen Saturation 97 % (90-100) Arterial Blood pH 7.29 (7.380-7.420) Arterial Blood Partial Pressure CO2 23 mmHg (38-42) Arterial Blood Partial Pressure O2 308 mmHg (61-120) Arterial Blood Oxygen Content 20.6 Vol % (12.0-20.0) Arterial Blood Carboxyhemoglobin 0.4 % (0-4) Arterial Blood Methemoglobin 1.8 % (0-2) Blood Gas Hemoglobin 14.6 G/DL (12.0-16.0) Oxygen Delivery Device NRB MASK Blood Gas Liter Flow 15 L/M Blood Gas Inspired Oxygen 100 % Imaging Last Impressions Head CT 03/02/17340 Signed Impressions: Service Date/Time: Thursday, March 02, 2017 04:58 - CONCLUSION: No acute intracranial disease. Right nasal fracture likely old. Derek Balderrama MD Chest X-Ray 03/02/17340 Signed Impressions: Service Date/Time: Thursday, March 02, 2017 03:44 - CONCLUSION: Right upper lobe opacity likely combination of mass and pneumonitis/infiltrate. Derek Balderrama MD Objective Remarks GENERAL: Middle-aged female, lying in bed, in mild HEENT: Normocephalic. Atraumatic. Pupils equal, round, reactive, conjugate. Mucous membranes are moist NECK: Trachea is midline. There is no JVD. CHEST: Tachypneic, labored. On nasal cannula oxygen CARDIOVASCULAR: Cardiac rate, regular rhythm. Sinus by telemetry. On norepinephrine infusion. ABDOMEN: Soft, nontender, nondistended. No guarding. MUSCULOSKELETAL: Pulses 2+. No peripheral edema. NEUROLOGICAL: RASS -1. Follows commands all 4 extremities A/P Assessment and Plan Assessment: 62yF with neutropenic sepsis and pancytopenia, likely post- obstructive pneumonia. broad spectrum antibiotics and cultures. She is in multiorgan failure with kidney injury and her blood pressure is no longer responsive to ivf. She is declining into septic shock and is critically ill. The patient has a living will and patient has requested DNR status and to be made comfort measures only at this time, and does not want intubation. Plan: Neutropenic Sepsis Post-obstructive pneumonia - Continue vanc, cefepime, levaquin - F/U sputum cultures, blood cultures Septic shock - Decrease IVF @ 50cc/hr - norepinephrine for goal MAP > 65 mmHg - s/p 3L NS in the ED -ID consulted Dr. Dean-meropenem added to medication regimen Lactic acidosis - secondary to sepsis - trend Possible ischemic right lower extremity Obtain arterial Doppler flow study Acute kidney injury Urinary retention - secondary to sepsis - trend Cr on daily BMP -Insert Manzanares catheter, strict I&O Pancytopenia - secondary to chemotherapy - also possible history of MDS - trend on daily CBC - no signs of active bleeding - will not transfuse currently Hold pharmacologic DVT prophylaxis given thrombocytopenia SCDs Dispo: Palliative care consulted patient may DNR status/comfort care measures only. Be transitioned early next week to hospice or comfort care at patient's request. Discussed with patient, , Dr. Foss (Heme Onc) and PATIENT RESOURCE SPECIALIST at bedside. All questions answered Level 2 Plan transfer to [facility] in a. Physician Jacki Villarreal MD Mar 03, 2017 13:58
[2017-03-03] MEDS ORDERED: LEVOFLOXACIN 750 MG PREMIX INJ 150 ML IV ONE (14:00)
[2017-03-03 14:43] LABS: INTERNATIONAL NORMALIZED RATIO 1.3 RATIO; PROTHROMBIN TIME - PATIENT 14.4 SEC (9.8-11.6)
--- NOTE | 2017-03-03 14:51 | PD.ONC.PN ---
Subjective Subjective Remarks Afebrile overnight Pt resting in bed surrounded by family members. She awakens momentarily but quickly drifts back to sleep Objective Data Date Time Temp Pulse Resp B/P (MAP) Pulse Ox O2 Delivery O2 Flow Rate FiO2 03/03/17 08:33 100 Nasal Cannula 4.00 03/03/17 06:00 114 03/03/17 04:00 97.7 113 17 95/49 (64) 100 03/03/17 04:00 113 03/03/17 03:50 100 Nasal Cannula 4.00 03/03/17 03:35 98.0 113 15 86/50 99 03/03/17 02:00 120 03/03/17 01:30 100 Nasal Cannula 6.00 03/03/17 00:00 98.2 124 16 104/51 (68) 100 03/03/17 00:00 124 03/02/17 22:00 127 03/02/17 21:41 100 Non-Rebreather 15.00 100 03/02/17 20:00 116 03/02/17 20:00 97.9 116 23 96/51 (66) 100 03/02/17 18:00 118 03/02/17 16:00 98.0 117 21 105/54 (71) 100 03/02/17 16:00 117 03/03/17 03/03/17 03/03/17 07:00 15:00 23:00 Intake Total 2233 ml 110 ml Balance 2233 ml 110 ml Result Diagram: 03/03/1790103/03/1702 Laboratory Results Laboratory Tests Test 03/02/17 23:56 03/03/17 00:31 03/03/17 09:02 03/03/17 14:02 Blood Gas Puncture Site RT RADIAL Blood Gas Patient Temperature 98.6 Blood Gas HCO3 11 mmol/L Blood Gas Base Excess -14.7 mmol/L Blood Gas Oxygen Saturation 97 % Arterial Blood pH 7.29 Arterial Blood Partial Pressure CO2 23 mmHg Arterial Blood Partial Pressure O2 308 mmHg Arterial Blood Oxygen Content 20.6 Vol % Arterial Blood Carboxyhemoglobin 0.4 % Arterial Blood Methemoglobin 1.8 % Blood Gas Hemoglobin 14.6 G/DL Oxygen Delivery Device NRB MASK Blood Gas Liter Flow 15 L/M Blood Gas Inspired Oxygen 100 % White Blood Count 0.3 TH/MM3 0.4 TH/MM3 Red Blood Count 2.73 MIL/MM3 4.44 MIL/MM3 Hemoglobin 7.5 GM/DL 11.9 GM/DL Hematocrit 22.2 % 36.6 % Mean Corpuscular Volume 81.5 FL 82.6 FL Mean Corpuscular Hemoglobin 27.6 PG 26.9 PG Mean Corpuscular Hemoglobin Concent 33.8 % 32.5 % Red Cell Distribution Width 20.8 % 21.5 % Platelet Count 10 TH/MM3 21 TH/MM3 Mean Platelet Volume 9.2 FL 8.3 FL CBC Comment AUTO DIFF AUTO DIFF Differential Total Cells Counted 50 50 Neutrophils % (Manual) 48 % 26 % Band Neutrophils % 4 % 2 % Lymphocytes % 40 % 68 % Monocytes % 2 % 2 % Eosinophils % 2 % Neutrophils # (Manual) 0.2 TH/MM3 0.1 TH/MM3 Metamyelocytes 4 % 2 % Nucleated Red Blood Cells 10 /100 WBC Differential Comment FINAL DIFF MANUAL FINAL DIFF MANUAL Platelet Estimate RARE LOW Platelet Morphology Comment NORMAL NORMAL Spherocytes OCC Keratocytes OCC Blood Urea Nitrogen 53 MG/DL 60 MG/DL Creatinine 2.34 MG/DL 2.50 MG/DL Random Glucose 81 MG/DL 85 MG/DL Total Protein 5.0 GM/DL 5.7 GM/DL Albumin 1.3 GM/DL Calcium Level 5.3 MG/DL 5.8 MG/DL Alkaline Phosphatase 110 U/L Aspartate Amino Transf (AST/SGOT) 72 U/L Alanine Aminotransferase (ALT/SGPT) 54 U/L Total Bilirubin 0.4 MG/DL Sodium Level 144 MEQ/L 144 MEQ/L Potassium Level 4.1 MEQ/L 4.0 MEQ/L Chloride Level 119 MEQ/L 119 MEQ/L Carbon Dioxide Level 12.8 MEQ/L 12.2 MEQ/L Anion Gap 12 MEQ/L 13 MEQ/L Estimat Glomerular Filtration Rate 21 ML/MIN 19 ML/MIN Protein Corrected Calcium 6.1 MG/DL 6.4 MG/DL Rj Cells 1+ Acanthocytes OCC Culture Results Microbiology Date/Time Source Procedure Growth Status 03/02/17 03:40 Blood Peripheral Aerobic Blood Culture - Preliminary Gram Negative Surinder Resulted 03/02/17 03:40 Blood Peripheral Anaerobic Blood Culture - Preliminary NO GROWTH IN 1 DAY Resulted 03/02/17 03:30 Blood Peripheral Aerobic Blood Culture - Preliminary Gram Negative Surinder Resulted 03/02/17 03:30 Blood Peripheral Anaerobic Blood Culture - Preliminary NO GROWTH IN 1 DAY Resulted Imaging Studies Last 24 hours Impressions Chest X-Ray 03/03/17 0000 Signed Impressions: Service Date/Time: Friday, March 03, 2017 11:36 - CONCLUSION: 1. Persistent and worsening right upper lobe consolidation/mass. 2. Interstitial prominence of the right lower lung. Erickson Collado MD Administered Medications Medications (Trade) Dose Ordered Sig/Lisa Route PRN Reason Start Time Stop Time Status Last Admin Dose Admin Cefepime HCl 2000 mg/Sodium Chloride 100 ml @ 200 mls/hr Q24H IV 03/03/17 04:00 03/03/17 04:50 Albuterol/ Ipratropium (Duoneb Neb) 1 ampule Q6HR NEB INH 03/02/17 10:00 03/03/17 08:33 Sodium Chloride 1,000 ml @ 120 mls/hr Q8H20M IV 03/02/17 05:32 03/03/17 01:42 Ondansetron HCl (Zofran Inj) 4 mg Q6H PRN IV PUSH NAUSEA OR VOMITING 03/02/17 05:45 03/02/17 22:31 Chlorhexidine Gluconate (Chlorhexidine 2% Cloth) 3 pack Taper DAILY@04 TOP 03/03/17 04:00 02/27/18 03:59 03/03/17 04:00 Norepinephrine Bitartrate 250 ml @ 7.5 mls/hr TITRATE PRN IV Blood pressure management 03/02/17 05:45 03/02/17 06:46 Acetaminophen 65 ml @ 400 mls/hr ONCE PRN IV TRANSFUSION 03/03/17 00:00 03/08/17 00:00 03/03/17 02:46 Lorazepam (Ativan Inj) 0.5 mg Q2H PRN IV PUSH ANXIETY 03/03/17 00:30 03/03/17 12:37 Morphine Sulfate (Morphine Inj) 2 mg Q2H PRN IV PUSH DYSPNEA 03/03/17 00:30 03/03/17 11:58 Objective Remarks GENERAL: Older female, resting in bed in no acute distress. SKIN: Warm and dry. HEAD: Normocephalic. EYES: No injection or drainage. NECK: Supple, trachea midline. CARDIOVASCULAR: Mildly tachy. Regular rhythm. RESPIRATORY: Mild exp wheezes bilaterally. GASTROINTESTINAL: Abdomen soft, non-tender, nondistended. EXTREMITIES: BLE tender to touch. NEUROLOGICAL: No obvious focal deficit. Awake, alert, and oriented x3. Assessment/Plan Assessment 62 y/o female with stage 4 lung cancer with mets to the brain admitted for dyspnea, confusion Plan 1.The pt was examined with myself, Dr Foss, Dr Ashton and the pt's spouse and family members. They expressed that the pt does not want any care given outside of comfort measures, antibiotics, vasopressors and blood products. She absolutely does not wish for intubation or life saving measures. Even though this hospitalization happened as a sequelae of the chemotherapy, we will respect the patient and family's wishes. She appears comfortable and in no current distress. We have dicussed with the BINDERY MANAGER, and the pt will get IV morphine or Ativan as ordered for comfort measures. Attending Statement The exam, history, and the medical decision-making described in the above note were completed with the assistance of the mid-level provider. I reviewed and agree with the findings presented. I attest that I had a [id number] encounter with the patient on the same day, and personally performed and documented my assessment and findings in the medical record. met with family and reviewed xrays and labs and spoke with Dr Cole. Suspect that counts will recover in next 3-4 days and will continue supportive care without CPR or intubation. will follow cbc plat. Enid Valdivia Mar 03, 2017 14:51 Roldan Foss MD Mar 03, 2017 16:23
[2017-03-03] MEDS ORDERED: PADIMATE (CHAPSTICK) 4.5 GM TUBE TOPICAL PRN (15:30)
--- NOTE | 2017-03-03 16:14 | PD.CONS ---
History of Present Illness Service Infectious disease Consult Requested By Dr Cole Reason for Consult Evaluate patient with sepsis and neutropenia Primary Care Physician Ayah Luis MD Diagnoses: History of Present Illness Patient seen and examined. Records reviewed. Patient is a 62-year-old female, presented to the hospital for further evaluation of generalized weakness. Patient has known history of lung cancer with metastatic disease, and she has been undergoing chemotherapy. His chemotherapy was about a week ago. She started having problem with generalized weakness, and had an episode of vomiting. She presented to the emergency room, and she was found to be neutropenic at that time. She did not want to be admitted, so she was discharged on Levaquin. She has some mild coughing but no real significant congestion or sputum production. She has been having some shortness of breath. On the day of admission, patient had significant weakness , and she apparently was found minimally responsive and she was brought into the hospital for further evaluation and treatment. A neutropenic. She is afebrile. She has evidence of elevated creatinine, and lactic acid. Patient is also hypotensive and on pressors. Her chest x-ray showing evidence of pneumonia. Patient does not want any aggressive measures and does not want any intubation. Patient apparently also has been having problem with pain in both lower extremity the right worse than the left. The left-sided pain is actually better. Patient had an admission back in September and at that time she had surgery on a pseudoaneurysm in her right groin. She apparently has had problem with pain in her right lower extremity since that time. Patient currently is quite lethargic, anxious on nasal O2. She is on Levophed. 2 blood culture on admission as well as 2 blood culture from March 01 are growing gram-negative surinder. Her LFTs are mildly elevated. Ultrasound of the right lower extremity shows no DVT. Infectious disease consultation has been requested to evaluate the patient with sepsis and neutropenia. Review of Systems ROS Limitations: Altered Mental Status Constitutional: COMPLAINS OF: Fatigue, Change in appetite, DENIES: Fever, Chills Eyes: DENIES: Eye pain Ears, nose, mouth, throat: DENIES: Nasal discharge, Oral lesions, Throat pain, Ear Pain, Sinus Pain Respiratory: COMPLAINS OF: Cough, Shortness of breath, DENIES: Sputum production Cardiovascular: COMPLAINS OF: Chest pain, Syncope Gastrointestinal: COMPLAINS OF: Abdominal pain, Nausea, Vomiting, DENIES: Constipation, Diarrhea, Difficulty Swallowing Genitourinary: DENIES: Dysuria Musculoskeletal: COMPLAINS OF: Joint pain, Muscle aches Integumentary: DENIES: Rash Neurologic: DENIES: Headache, Localized weakness Psychiatric: DENIES: Hallucinations Review of system obtained mostly from the patient's Past Family Social History Allergies: Coded Allergies: codeine (Unverified Allergy, Severe, PT NOT ALLERGIC TO CODEINE, 03/01/17) Past Medical History Myelodysplastic syndrome Bone marrow transplant [id number] disease Stage !V Lung cancer with mets Past Surgical History Pseudoaneurysm repair Pulmonary transplant Reported Medications I attest that I obtained, updated or reviewed the home and current medications. Reported Meds & Active Scripts Active Levaquin (Levofloxacin) 500 Mg Tablet 500 Mg PO DAILY 7 Days Reported Oxycodone (Oxycodone HCl) 5 Mg Tab 5 Mg PO Q6H PRN Sertraline (Sertraline HCl) 50 Mg Tab 50 Mg PO DAILY Benadryl Allergy (Diphenhydramine HCl) 25 Mg Tablet 2 Tab Q6HR PRN Morphine IR (Morphine Sulfate) 15 Mg Tab 15 Mg PO Q6HR PRN Morphine ER (Morphine Sulfate) 30 Mg Tab 30 Mg PO BID Folic Acid 0.8 Mg Tab 1 Mg PO DAILY B12 (Cyanocobalamin) 1,000 Mcg Tab Tab PO DAILY Levetiracetam 500 Mg Tab 500 Mg PO BID Omeprazole 40 Mg Cap 40 Mg PO EVERY OTHER DAY Active Ordered Medications Tylenol prn ALbuterol prn Cefepime IV Neupogen IV Insulin sliding scale Levaquin IV Ativan prn Morphine prn Levophed Zofran prn Pericolace prn Family History Noncontributory Social History Ex-smoker quit in 2008 No alcohol abuse No illicit drugs Physical Exam Vital Signs Vital Signs Date Time Temp Pulse Resp B/P (MAP) Pulse Ox O2 Delivery O2 Flow Rate FiO2 03/03/17 08:33 100 Nasal Cannula 4.00 03/03/17 06:00 114 03/03/17 04:00 97.7 113 17 95/49 (64) 100 03/03/17 04:00 113 03/03/17 03:50 100 Nasal Cannula 4.00 03/03/17 03:35 98.0 113 15 86/50 99 03/03/17 02:00 120 03/03/17 01:30 100 Nasal Cannula 6.00 03/03/17 00:00 98.2 124 16 104/51 (68) 100 03/03/17 00:00 124 03/02/17 22:00 127 03/02/17 21:41 100 Non-Rebreather 15.00 100 03/02/17 20:00 116 03/02/17 20:00 97.9 116 23 96/51 (66) 100 03/02/17 18:00 118 Physical Exam GENERAL: Patient is a well-nourished, well-developed CF, very lethargic, answered some of my questions intermittently, not in respiratory distress at rest SKIN: Warm and dry. No generalized rash, no ecchymoses and no evidence of embolic lesions. HEAD: Atraumatic. Normocephalic. No temporal wasting, or tenderness. EYES: [place] conjunctiva. No petechia or hemorrhage. Pupils equal, round and reactive to light. Extraocular movements full and intact. No scleral icterus. No injection or drainage. EARS, NOSE AND THROAT: Nose without bleeding or purulent nasal discharge. Dry oral mucosa. NECK: Trachea midline. Supple and not tender, no meningeal signs CARDIOVASCULAR: Regular rate and rhythm. No murmurs, rubs or gallops heard RESPIRATORY: Coarse BS bilaterally, rales at bases. Port look ok ABDOMEN: Has diffuse abdominal tenderness, hypoactive bowel sounds, ? guarding. EXTREMITIES: No clubbing. Cool from mid R leg to the whole R foot, with ischemic color/purplish color, very painful when touched. LLE warm. NEUROLOGICAL: Lethargic, intermittently awakens and answers some questions. PSYCHIATRIC: Unable to assess LINE: No evidence of infection Laboratory Laboratory Tests Test 03/02/17 23:56 03/03/17 00:31 03/03/17 09:02 03/03/17 14:02 Blood Gas Puncture Site RT RADIAL Blood Gas Patient Temperature 98.6 Blood Gas HCO3 11 Blood Gas Base Excess -14.7 Blood Gas Oxygen Saturation 97 Arterial Blood pH 7.29 Arterial Blood Partial Pressure CO2 23 Arterial Blood Partial Pressure O2 308 Arterial Blood Oxygen Content 20.6 Arterial Blood Carboxyhemoglobin 0.4 Arterial Blood Methemoglobin 1.8 Blood Gas Hemoglobin 14.6 Oxygen Delivery Device NRB MASK Blood Gas Liter Flow 15 Blood Gas Inspired Oxygen 100 White Blood Count 0.3 0.4 Red Blood Count 2.73 4.44 Hemoglobin 7.5 11.9 Hematocrit 22.2 36.6 Mean Corpuscular Volume 81.5 82.6 Mean Corpuscular Hemoglobin 27.6 26.9 Mean Corpuscular Hemoglobin Concent 33.8 32.5 Red Cell Distribution Width 20.8 21.5 Platelet Count 10 21 Mean Platelet Volume 9.2 8.3 CBC Comment AUTO DIFF AUTO DIFF Differential Total Cells Counted 50 50 Neutrophils % (Manual) 48 26 Band Neutrophils % 4 2 Lymphocytes % 40 68 Monocytes % 2 2 Eosinophils % 2 Neutrophils # (Manual) 0.2 0.1 Metamyelocytes 4 2 Nucleated Red Blood Cells 10 Differential Comment FINAL DIFF MANUAL FINAL DIFF MANUAL Platelet Estimate RARE LOW Platelet Morphology Comment NORMAL NORMAL Spherocytes OCC Keratocytes OCC Blood Urea Nitrogen 53 60 Creatinine 2.34 2.50 Random Glucose 81 85 Total Protein 5.0 5.7 Albumin 1.3 Calcium Level 5.3 5.8 Alkaline Phosphatase 110 Aspartate Amino Transf (AST/SGOT) 72 Alanine Aminotransferase (ALT/SGPT) 54 Total Bilirubin 0.4 Sodium Level 144 144 Potassium Level 4.1 4.0 Chloride Level 119 119 Carbon Dioxide Level 12.8 12.2 Anion Gap 12 13 Estimat Glomerular Filtration Rate 21 19 Protein Corrected Calcium 6.1 6.4 Rj Cells 1+ Acanthocytes OCC Prothrombin Time 14.4 Prothromb Time International Ratio 1.3 Fibrinogen 684 Date/Time Source Procedure Growth Status 03/02/17 03:40 Blood Peripheral Aerobic Blood Culture - Preliminary Gram Negative Surinder Resulted 03/02/17 03:40 Blood Peripheral Anaerobic Blood Culture - Preliminary NO GROWTH IN 1 DAY Resulted Result Diagram: 03/03/17 0902 03/03/17 0902 Imaging RADIOLOGY STUDIES/FILMS REVIEWED Chest X-Ray 03/03/17 0000 Signed Impressions: Service Date/Time: Friday, March 03, 2017 11:36 - CONCLUSION: 1. Persistent and worsening right upper lobe consolidation/mass. 2. Interstitial prominence of the right lower lung. Erickson Collado MD Head CT 03/02/17 0341 Signed Impressions: Service Date/Time: Thursday, March 02, 2017 04:58 - CONCLUSION: No acute intracranial disease. Right nasal fracture likely old. Derek Balderrama MD Assessment and Plan Assessment and Plan IMPRESSION Gram negative sepsis, with shock, source? - has PNA, ?intraabdominal - has cold R foot/leg Neutropenia, post chemo for lung CA with mets Renal failure Encephalopathy Ischemic RLE RECOMMENDATION Repeat BC Continue Vanco Change Cefepime to Meropenem Arterial doppler Ideally CT A/P - family waiting for therest of family to arrive, then decide - currently patient comfort measures but they want pressors and Abx Follow C/S Monitor progress Prognosis very poor I will follow with you Thank you for this consultation Discussed Condition With Spoke with and family in the room Spoke again second time with D/W Dr Foss D/W Dr Ashton ([facility]) D/W RN Leni Dean MD Mar 03, 2017 16:14
[2017-03-03] MEDS ORDERED: ASP: Other exception documentation: ( ) PRN (16:45)
[2017-03-03] MEDS ORDERED: MISCELLANEOUS PHARMACY INFORMATION XX PRN (16:45)
[2017-03-03] MEDS: MEROPENEM INJ 500 MG in SODIUM CHLORIDE 0.9% INJ 100 ML IV SCH (18:18)
[2017-03-03 19:16] LABS: BACTERIA, URINE OCC /hpf; BLOOD, URINE MOD (NEG); COMMENT (UR) CATH-CULTURE IND; CULTURE IF INDICATED CATH CULTURE IND; GLUCOSE,URINE NEG (NEG); KETONE, URINE NEG (NEG); NITRITE,URINE NEG (NEG); SQUAMOUS EPITHELIAL CELL URINE <1 /hpf (0-5); URINE COLOR YELLOW (YELLW/STRAW)
[2017-03-03] MEDS ORDERED: FILGRASTIM IV SCH ×2 (23:00)
[2017-03-03] MEDS ORDERED: DEXTROSE 5% IV SCH ×2 (23:00)
[2017-03-03] MEDS ORDERED: FILGRASTIM 480 MCG/1.6 ML VIAL IV SCH (23:00)
[2017-03-03] MEDS ORDERED: WATER IV SCH ×2 (23:00)
[2017-03-03] MEDS ORDERED: FILGRASTIM 480 MCG/1.6 ML VIAL SQ SCH (23:00)
[2017-03-04] VITALS (14 sets, daily range): BP systolic 88–102; BP diastolic 45–55; PULSE 72–114; RESP 13–18; TEMP 97.6–98.9; O2SAT 95–99
[2017-03-04] MEDS: MEROPENEM INJ 500 MG in SODIUM CHLORIDE 0.9% INJ 100 ML IV SCH (00:25)
[2017-03-04] MEDS: LORazepam 2 MG/ML VIAL IV PUSH PRN ×10 (00:26→23:16)
[2017-03-04] MEDS: MORPHINE SULFATE 2 MG/ML INJ IV PUSH PRN ×10 (00:30→23:14)
[2017-03-04] MEDS: NOREPINEPHRINE-DEXTROSE DRIP 250 ML IV PRN (02:20)
[2017-03-04] MEDS: RESP: ALBUTEROL 2.5 MG/IPRATROPIUM 0.5 MG NEB (SCH) INH ×4 (03:58→22:00)
[2017-03-04] MEDS: CHLORHEXIDINE GLUCONATE 2 % 1 PACK (2 CLOTHS) TOP SCH (04:00)
[2017-03-04] MEDS: SODIUM CHLOR 0.9% 1000 ML INJ 1,000 ML IV SCH (04:37)
[2017-03-04] MEDS: INSULIN NovoLIN REGULAR SUPPLEMENTAL SCALE SQ SCH ×4 (05:32→21:12)
[2017-03-04 06:41] LABS: MEAN CELL VOLUME 79.8 FL (80.0-100.0); MEAN CORPUSCULAR HEMOGLOBIN 26.8 PG (27.0-34.0); MEAN CORPUSCULAR HGB CONC 33.5 % (32.0-36.0); RED BLOOD COUNT 2.46 MIL/MM3 (4.00-5.30); RED CELL DISTRIBUTION WIDTH 21.1 % (11.6-17.2); WHITE BLOOD COUNT 0.2 TH/MM3 (4.0-11.0)
[2017-03-04 06:55] LABS: BICARBONATE 11.4 MEQ/L (21.0-32.0); HEMATOCRIT 19.7 % (35.0-46.0); PLATELET COUNT 6 TH/MM3 (150-450); POTASSIUM 3.9 MEQ/L (3.5-5.1); REVIEW FLAG FINAL
[2017-03-04 07:17] LABS: CALCIUM-PROTEIN CORRECTED 6.4 MG/DL (8.5-10.1)
--- NOTE | 2017-03-04 08:32 | HHI.PR ---
Subjective Remarks f/u; lung cancer ill looking with some respiratory distress. somewhat lethargic. afebrile. at the bedside. d/w the RN. Objective Vitals Vital Signs Date Time Temp Pulse Resp B/P (MAP) Pulse Ox O2 Delivery O2 Flow Rate FiO2 03/04/17 06:00 110 03/04/17 04:00 98.8 111 13 100/51 (67) 98 03/04/17 04:00 111 03/04/17 02:20 109 98/60 03/04/17 02:00 72 03/04/17 01:00 112 89/54 03/04/17 00:40 114 102/54 03/04/17 00:00 110 03/04/17 00:00 98.5 110 13 102/54 (70) 98 03/03/17 22:44 20 03/03/17 22:00 111 03/03/17 20:00 110 03/03/17 20:00 98.9 111 19 98/58 (71) 100 03/03/17 19:52 100 Nasal Cannula 4.00 03/03/17 18:18 87/49 03/03/17 18:00 109 03/03/17 17:52 87/47 03/03/17 16:00 98.2 111 20 97/53 (68) 99 03/03/17 16:00 111 03/03/17 14:00 111 03/03/17 12:00 97.6 112 24 107/58 (74) 99 03/03/17 12:00 112 03/03/17 10:00 112 03/03/17 08:33 100 Nasal Cannula 4.00 I/O 03/03/17 03/03/17 03/03/17 03/04/17 03/04/17 03/04/17 07:00 15:00 23:00 07:00 15:00 23:00 Intake Total 2233 ml 110 ml 150 ml 1510 ml Output Total 1400 ml 570 ml Balance 2233 ml 110 ml -1250 ml 940 ml Intake Oral 100 ml 0 ml IV Total 1567 ml 110 ml 150 ml 1510 ml Platelets 283 ml Blood Product IV Normal Saline Flush 283 ml Output Urine Total 1400 ml 570 ml # Voids 2 # Bowel Movements 2 3 Result Diagram: 10/22/17 0511 10/22/17 0511 Imaging Last Impressions Chest X-Ray 03/03/17 0000 Signed Impressions: Service Date/Time: Friday, March 03, 2017 11:36 - CONCLUSION: 1. Persistent and worsening right upper lobe consolidation/mass. 2. Interstitial prominence of the right lower lung. Erickson Collado MD Head CT 03/02/17 0341 Signed Impressions: Service Date/Time: Thursday, March 02, 2017 04:58 - CONCLUSION: No acute intracranial disease. Right nasal fracture likely old. Derek Balderrama MD Objective Remarks GENERAL: ill-looking. CARDIOVASCULAR: Regular rate and regular rhythm without murmurs, gallops, or rubs. RESPIRATORY: Clear to auscultation. Breath sounds equal bilaterally. No wheezes , rales, or rhonchi. GASTROINTESTINAL: Abdomen soft, non-tender, nondistended. Normal, active bowel sounds MUSCULOSKELETAL: Extremities with mild bilateral pedal edema. NEURO: somewhat lethargic. Medications and IVs Current Medications Cefepime HCl 2000 mg/Sodium Chloride 100 ml @ 200 mls/hr ONCE STAT IV Last administered on 03/02/17 04:10; Start 03/02/17 at 03:41; Stop 03/02/17 at 04 :10; Status DC Sodium Chloride 1,000 ml @ 1,000 mls/hr Q1H ONCE IV Last administered on 03/02 03:49; Start 03/02/17 at 03:41; Stop 03/02/17 at 04:40; Status DC Sodium Chloride 1,000 ml @ 1,000 mls/hr Q1H ONCE IV Last administered on 03/02 03:49; Start 03/02/17 at 03:41; Stop 03/02/17 at 04:40; Status DC Levofloxacin/ Dextrose 150 ml @ 100 mls/hr ONCE ONCE IV ; Start 03/02/17 at 04:30; Stop 03/02/17 at 04:38; Status DC Vancomycin HCl 1550 mg/Sodium Chloride 515.5 ml @ 250 mls/hr ONCE ONCE IV Last administered on 03/02/17 05:19; Start 03/02/17 at 04:30; Stop 03/02/17 at 06:33; Status DC Sodium Chloride 1,000 ml @ 999 mls/hr BOLUS ONCE IV Last administered on 10/ 20/17at 04:53; Start 03/02/17 at 05:00; Stop 03/02/17 at 06:00; Status DC Pharmacy Profile Note 0 ml @ 0 mls/hr UNSCH OTHER ; Start 03/02/17 at 05:45 Cefepime HCl 2000 mg/Sodium Chloride 100 ml @ 200 mls/hr Q24H IV Last administered on 03/03/17 04:50; Start 03/03/17 at 04:00; Stop 03/03/17 at 16 :44; Status DC Dextrose (D50w (Vial) Inj) 25 ml UNSCH PRN IV PUSH HYPOGLYCEMIA-SEE COMMENTS; Start 03/02/17 at 05:45 Insulin Human Regular (NovoLIN R SUPPLEMENTAL SCALE) 1 Q6HR SQ ; Start at 06:00 Albuterol/ Ipratropium (Duoneb Neb) 1 ampule Q6HR NEB INH Last administered on 03/03/17 19:49; Start 03/02/17 at 10:00 Albuterol/ Ipratropium (Duoneb Neb) 1 ampule Q2HR NEB PRN INH WHEEZING; Start 03/02/17 at 05:45 Sodium Chloride 1,000 ml @ 50 mls/hr Q20H IV Last administered on 03/04/17 04:37; Start 03/02/17 at 05:32 Acetaminophen (Tylenol) 650 mg Q6H PRN PO PAIN 1-10 AND/OR FEVER >101F; Start 03/02/17 at 05:45 Ondansetron HCl (Zofran Inj) 4 mg Q6H PRN IV PUSH NAUSEA OR VOMITING Last administered on 03/02/17 22:31; Start 03/02/17 at 05:45 Miscellaneous Information 1 Q361D XX ; Start 03/02/17 at 05:45 Chlorhexidine Gluconate (Chlorhexidine 2% Cloth) 3 pack Taper DAILY@04 TOP Last administered on 03/04/17 04:00; Start 03/03/17 at 04:00; Stop 02/27/18 at 03:59 Chlorhexidine Gluconate (Chlorhexidine 2% Cloth) 3 pack UNSCH PRN TOP HYGIENIC CARE; Start 03/02/17 at 05:45 Senna/Docusate Sodium (Patricia-Colace) 1 tab BID PO ; Start 03/02/17 at 09:00 Sodium Chloride 1,000 ml @ 999 mls/hr BOLUS ONCE IV Last administered on 06:03; Start 03/02/17 at 05:45; Stop 03/02/17 at 06:45; Status DC Norepinephrine Bitartrate 250 ml @ 7.5 mls/hr TITRATE PRN IV Blood pressure management Last administered on 03/04/17 02:20; Start 03/02/17 at 05:45 Terbutaline Sulfate (Brethine Inj) 1 mg UNSCH PRN SQ For Extravasation; Start 03/02/17 at 05:45 Morphine Sulfate (Morphine Inj) 2.5 mg ONCE ONCE IV PUSH ; Start 03/02/17 at 13:00; Stop 03/02/17 at 13:01; Status DC Lorazepam (Ativan Inj) 0.5 mg ONCE ONCE IV PUSH Last administered on 13:00; Start 03/02/17 at 13:00; Stop 03/02/17 at 13:01; Status DC Morphine Sulfate (Morphine Inj) 4 mg STK-MED ONCE .ROUTE Last administered on 03/02/17 12:59; Start 03/02/17 at 12:53; Stop 03/02/17 at 12:54; Status DC Morphine Sulfate (Morphine Inj) 2 mg Q4H PRN IV PUSH DYSPNEA Last administered on 03/02/17 22:31; Start 03/02/17 at 14:30; Stop 03/03/17 at 00:16; Status DC Lorazepam (Ativan Inj) 0.5 mg Q4H PRN IV PUSH ANXIETY Last administered on 22:31; Start 03/02/17 at 15:15; Stop 03/03/17 at 00:16; Status DC Filgrastim (Neupogen Inj) 480 mcg ONCE ONCE SQ Last administered on 02:48; Start 03/03/17 at 00:00; Stop 03/03/17 at 00:01; Status DC Pharmacy Profile Note 0 ml @ 0 mls/hr UNSCH OTHER ; Start 03/03/17 at 00:00; Status Cancel Acetaminophen 65 ml @ 400 mls/hr ONCE PRN IV TRANSFUSION Last administered on 03/03/17 02:46; Start 03/03/17 at 00:00; Stop 03/08/17 at 00:00 Lorazepam (Ativan Inj) 0.5 mg Q2H PRN IV PUSH ANXIETY Last administered on 06:46; Start 03/03/17 at 00:30 Morphine Sulfate (Morphine Inj) 2 mg Q2H PRN IV PUSH DYSPNEA Last administered on 03/04/17 06:46; Start 03/03/17 at 00:30 Calcium Gluconate 1 gm/Sodium Chloride 110 ml @ 1.5 mls/min NOW ONCE IV Last administered on 03/03/17 08:23; Start 03/03/17 at 09:00; Stop 03/03/17 at 10 :13; Status DC Filgrastim (Neupogen Inj) 480 mcg DAILY SQ ; Start 03/03/17 at 23:00; Stop at 23:00; Status DC Levofloxacin/ Dextrose 150 ml @ 100 mls/hr ONCE ONCE IV Last administered on 03/03/17 14:49; Start 03/03/17 at 14:00; Stop 03/03/17 at 15:29; Status DC Pharmacy Profile Note 0 ml @ 0 mls/hr UNSCH OTHER ; Start 03/03/17 at 13:30; Stop 03/03/17 at 14:00; Status DC Levofloxacin/ Dextrose 100 ml @ 100 mls/hr Q48H IV ; Start 03/05/17 at 14:00 Filgrastim (Neupogen Inj) 480 mcg Q24H IV ; Start 03/03/17 at 23:00; Stop at 23:00; Status DC Padimate O ([place]) 1 applic UNSCH PRN TOPICAL CHAPPED LIPS; Start at 15:30 Miscellaneous Medication (ASP Crit: Other exception documentation) 1 UNSCH X1 PRN .XX PHARMACY DOCUMENTATION; Start 03/03/17 at 16:45; Stop 03/04/17 at 16: 44 Miscellaneous Medication ([facility] Information) 1 UNSCH X1 PRN XX PHARMACY DOCUMENTATION; Start 03/03/17 at 16:45; Stop 03/04/17 at 16:44 Meropenem 500 mg/ Sodium Chloride 100 ml @ 200 mls/hr Q8H IV Last administered on 03/04/17 00:25; Start 03/03/17 at 18:00 Filgrastim 480 mcg/Dextrose 36.6 ml @ 66.4 mls/hr DAILY@2300 IV Last administered on 03/03/17t 22:50; Start 03/03/17 at 23:00 A/P Assessment and Plan A/P Neutropenic Sepsis Post-obstructive pneumonia - Continue vanc, meropenem, levaquin - F/U sputum cultures, blood cultures -ID consulted. Septic shock - on norepinephrine for goal MAP > 65 mmHg -ID consulted Dr. Dean-meropenem added to antibiotic regimen Lactic acidosis - secondary to sepsis Possible ischemic right lower extremity start the work-up if the family wish to proceed with aggressive care- Acute kidney injury Urinary retention hypocalcemia - secondary to sepsis - trend Cr on daily BMP -continue Manzanares catheter, strict I&O -replace electrolytes as needed. Pancytopenia anemia - secondary to chemotherapy - also possible history of MDS - trend on daily CBC - no signs of active bleeding - PRBC/ platelet transfusion as per oncology Hold pharmacologic DVT prophylaxis given thrombocytopenia evaluated by palliative care. had a discussion with the patient's and the RN ; patient is currently on ' no code ' status and comfort care. her said that ' hospice was briefly discussed with him ' but he hasn't made a decision yet. Discharge Planning likely hospice- early this week- awaiting palliative care and oncology follow- up. d/w the patient's and the RN. Allie Kenyon MD Mar 04, 2017 08:32
[2017-03-04] MEDS: DOCUSATE SODIUM 50 MG/SENNA 8.6 MG TAB PO SCH ×2 (08:50→21:00)
[2017-03-04] MEDS ORDERED: CALCIUM GLUCONATE INJ 1 GM in DEXTROSE 5% IN WATER 100ML INJ 100 ML IV ONE ×2 (10:00)
--- NOTE | 2017-03-04 12:18 | PD.ONC.PN ---
Subjective Subjective Remarks Afebrile Pt surrounded by family members They have decided to transition to comfort care measures only Objective Data Date Time Temp Pulse Resp B/P (MAP) Pulse Ox O2 Delivery O2 Flow Rate FiO2 03/04/17 07:45 95 Nasal Cannula 4.00 03/04/17 06:00 110 03/04/17 04:00 98.8 111 13 100/51 (67) 98 03/04/17 04:00 111 03/04/17 02:20 109 98/60 03/04/17 02:00 72 03/04/17 01:00 112 89/54 03/04/17 00:40 114 102/54 03/04/17 00:00 110 03/04/17 00:00 98.5 110 13 102/54 (70) 98 03/03/17 22:44 20 03/03/17 22:00 111 03/03/17 20:00 110 03/03/17 20:00 98.9 111 19 98/58 (71) 100 03/03/17 19:52 100 Nasal Cannula 4.00 03/03/17 18:18 87/49 03/03/17 18:00 109 03/03/17 17:52 87/47 03/03/17 16:00 98.2 111 20 97/53 (68) 99 03/03/17 16:00 111 03/03/17 14:00 111 03/04/17 03/04/17 03/04/17 07:00 15:00 23:00 Intake Total 1510 ml Output Total 570 ml Balance 940 ml Result Diagram: 03/04/1711 03/04/17 0511 Laboratory Results Laboratory Tests Test 03/03/17 14:02 03/03/17 17:30 03/04/17 05:11 Prothrombin Time 14.4 SEC Prothromb Time International Ratio 1.3 RATIO Fibrinogen 684 mg/dL Urine Color YELLOW Urine Turbidity HAZY Urine pH 5.0 Urine Specific [place] 1.012 Urine Protein 30 mg/dL Urine Glucose (UA) NEG mg/dL Urine Ketones NEG mg/dL Urine Occult Blood MOD Urine Nitrite NEG Urine Bilirubin NEG Urine Urobilinogen LESS THAN 2.0 MG/DL Urine Leukocyte Esterase NEG Urine RBC 1 /hpf Urine WBC 4 /hpf Urine Squamous Epithelial Cells <1 /hpf Urine Amorphous Sediment RARE Urine Bacteria OCC /hpf Microscopic Urinalysis Comment CATH-CULTURE IND White Blood Count 0.2 TH/MM3 Red Blood Count 2.46 MIL/MM3 Hemoglobin 6.6 GM/DL Hematocrit 19.7 % Mean Corpuscular Volume 79.8 FL Mean Corpuscular Hemoglobin 26.8 PG Mean Corpuscular Hemoglobin Concent 33.5 % Red Cell Distribution Width 21.1 % Platelet Count 6 TH/MM3 Mean Platelet Volume 8.8 FL Blood Urea Nitrogen 73 MG/DL Creatinine 2.75 MG/DL Random Glucose 99 MG/DL Total Protein 5.0 GM/DL Calcium Level 5.5 MG/DL Sodium Level 146 MEQ/L Potassium Level 3.9 MEQ/L Chloride Level 121 MEQ/L Carbon Dioxide Level 11.4 MEQ/L Anion Gap 14 MEQ/L Estimat Glomerular Filtration Rate 17 ML/MIN Protein Corrected Calcium 6.4 MG/DL Random Vancomycin Level 13.5 COMMENT Culture Results Microbiology Date/Time Source Procedure Growth Status 03/04/17 05:11 Blood Peripheral Aerobic Blood Culture Pending Received 03/04/17 05:11 Blood Peripheral Anaerobic Blood Culture Pending Received 03/03/17 19:41 Blood Other Aerobic Blood Culture - Preliminary NO GROWTH IN 1 DAY Resulted 03/03/17 19:41 Blood Other Anaerobic Blood Culture - Preliminary NO GROWTH IN 1 DAY Resulted 03/02/17 03:40 Blood Peripheral Aerobic Blood Culture - Final Salmonella Enterica Resulted 03/02/17 03:40 Blood Peripheral Anaerobic Blood Culture - Preliminary NO GROWTH IN 2 DAYS Resulted 03/02/17 03:30 Blood Peripheral Aerobic Blood Culture - Final Salmonella Enterica Resulted 03/02/17 03:30 Blood Peripheral Anaerobic Blood Culture - Preliminary NO GROWTH IN 2 DAYS Resulted 03/03/17 17:30 Urine Catheterized Urine Urine Culture Pending Received Administered Medications Medications (Trade) Dose Ordered Sig/Lisa Route PRN Reason Start Time Stop Time Status Last Admin Dose Admin Albuterol/ Ipratropium (Duoneb Neb) 1 ampule Q6HR NEB INH 03/02/17 10:00 03/03/17 19:49 Ondansetron HCl (Zofran Inj) 4 mg Q6H PRN IV PUSH NAUSEA OR VOMITING 03/02/17 05:45 03/02/17 22:31 Chlorhexidine Gluconate (Chlorhexidine 2% Cloth) 3 pack Taper DAILY@04 TOP 03/03/17 04:00 02/27/18 03:59 03/04/17 04:00 Acetaminophen 65 ml @ 400 mls/hr ONCE PRN IV TRANSFUSION 03/03/17 00:00 03/08/17 00:00 03/03/17 02:46 Lorazepam (Ativan Inj) 0.5 mg Q2H PRN IV PUSH ANXIETY 03/03/17 00:30 03/04/17 10:36 Morphine Sulfate (Morphine Inj) 2 mg Q2H PRN IV PUSH DYSPNEA 03/03/17 00:30 03/04/17 10:36 Objective Remarks GENERAL: Older female, resting in bed surrounded by family members. SKIN: Warm and dry. HEAD: Normocephalic. EYES: No injection or drainage. NECK: Supple, trachea midline. CARDIOVASCULAR: Deferred d/t comfort care RESPIRATORY: Deferred d/t comfort care EXTREMITIES: BLE tender to touch. NEUROLOGICAL: Pt lethargic. She awakens with stimulation but is very painful. Assessment/Plan Assessment 62 y/o female with stage 4 lung cancer with mets to the brain admitted for dyspnea, confusion Plan The pt is surrounded by her family and appears comfortable at rest. She is purely comfort care only at this time per the family's request. All antibiotics , blood products and vasopressors have been discontinued. She has available morphine and Ativan every 2 hours as needed. Attending Statement The exam, history, and the medical decision-making described in the above note were completed with the assistance of the mid-level provider. I reviewed and agree with the findings presented. I attest that I had a [id number] encounter with the patient on the same day, and personally performed and documented my assessment and findings in the medical record. met with and children in room. situation discussed with patient's nurse Idalia. Family clear about wishes for only comfort measures and morphine and Ativan are available. The do not want transfusions, antibiotics and pressors. Nothing further to add except to support their decision and provide comfort. Enid Valdivia Mar 04, 2017 12:17 Roldan Foss MD Mar 04, 2017 12:38
[2017-03-05] VITALS (10 sets, daily range): BP systolic 84–100; BP diastolic 48–55; PULSE 101–116; RESP 15–22; TEMP 98.3–99.3; O2SAT 97–98
[2017-03-05] MEDS: MORPHINE SULFATE 2 MG/ML INJ IV PUSH PRN ×6 (02:27→17:28)
[2017-03-05] MEDS: LORazepam 2 MG/ML VIAL IV PUSH PRN ×6 (02:28→17:28)
[2017-03-05] MEDS: RESP: ALBUTEROL 2.5 MG/IPRATROPIUM 0.5 MG NEB (SCH) INH ×2 (03:53→10:00)
[2017-03-05] MEDS: CHLORHEXIDINE GLUCONATE 2 % 1 PACK (2 CLOTHS) TOP SCH (04:00)
[2017-03-05] MEDS: INSULIN NovoLIN REGULAR SUPPLEMENTAL SCALE SQ SCH ×2 (04:49→12:00)
--- NOTE | 2017-03-05 08:42 | HHI.PR ---
Subjective Remarks Patient sitting comfortably. Discussed with at bedside. Requests a week patient. He says the patient appears to be in pain. I discussed with nurse will administer pain medication. Objective Vital Signs Date Time Temp Pulse Resp B/P (MAP) Pulse Ox O2 Delivery O2 Flow Rate FiO2 03/04/17 22:12 97 Nasal Cannula 4.00 03/04/17 18:00 107 03/04/17 16:00 114 03/04/17 16:00 98.9 114 18 98/54 (69) 98 03/04/17 14:00 107 03/04/17 12:00 107 03/04/17 12:00 97.6 107 14 88/ 98 03/04/17 10:00 110 I/O 03/04/17 03/04/17 03/04/17 03/05/17 03/05/17 03/05/17 07:00 15:00 23:00 07:00 15:00 23:00 Intake Total 1510 ml Output Total 570 ml Balance 940 ml IV Total 1510 ml Output Urine Total 570 ml Result Diagram: 03/04/1751003/04/1711 Objective Remarks GENERAL: Patient lying in bed sleeping. Appears uncomfortable. HEAD: Normocephalic. NECK: trachea midline. No JVD. A/P Assessment and Plan //Neutropenic Sepsis //Post-obstructive pneumonia - Continue vanc, meropenem, levaquin - F/U sputum cultures, blood cultures -ID consulted. = Patient is palliative care only //Septic shock - on norepinephrine for goal MAP > 65 mmHg -ID consulted Dr. Dean-meropenem added to antibiotic regimen = Patient continues with suspected sepsis. Comfort care only. //Lactic acidosis - secondary to sepsis //Possible ischemic right lower extremity start the work-up if the family wish to proceed with aggressive care- //Acute kidney injury //Urinary retention //hypocalcemia - secondary to sepsis - trend Cr on daily BMP -continue Manzanares catheter, strict I&O -Patient comfort care only. //Pancytopenia //anemia - secondary to chemotherapy - also possible history of MDS - trend on daily CBC - no signs of active bleeding - PRBC/ platelet transfusion as per oncology Hold pharmacologic DVT prophylaxis given thrombocytopenia Attending Attestation likely hospice- early this week- awaiting palliative care and oncology follow- up. d/w the patient's and the RN. Bryce Abraham MD Mar 05, 2017 08:42
[2017-03-05] MEDS: DOCUSATE SODIUM 50 MG/SENNA 8.6 MG TAB PO SCH (09:00)
--- NOTE | 2017-03-05 12:40 | HHI.HCPN ---
Reason for visit a. To assist with evaluation and management of symptoms including: dyspnea, anxiety b. To assist medical decision maker(s) with: better understanding of current medical conditions; weighing benefits/burdens of medical treatment options; making medical treatment decisions. Subjective/Interval History Pt seen today to follow up on comfort, goals Per my discussion w pt, last Sunday, they were awaiting additional family arrival before pursing hospice for comfort at end of life. Oncology consulted, pt seen by Dr Vincent, transfused platelets. H&H , Plt trending down -- 6.6/19.7, Plt 6. ID also consulted, evaluated and started vanco, however noted that pt refused abx over the weekend, requested comfort tx only. Tolerating NC O2 4L. At time of my exam pt sleeping, son and brother at bedside. They inform they were expecting to follow up w hospice today. has gone home to change. Review weekend course, pt condition. They indicate pt, supported by family continues to want comfort tx only, no further escalation. Briefly review hospice role/philosophy and services, they indicate that is what pt , spouse wants and they were expecting to meet w hospice today. Advise I will order hospice consult now, and meet further/again around 1 pm when expected to arrive. At time my exam pt awakens some becomes anxious, restless, wheezing, increasingly short of breath. Lungs with wheezing, increased RR. She is confused and anxious and unable to fully participate. D.w primary nurse to provide PRN for comfort. Order for hospice entered, call to hospice admissions. Will meet further w pt, spouse once he arrives. . Advance Directives Living Will: Completed, but not made available Health Care Surrogate: Completed, but not made available Objective Vital Signs Date Time Temp Pulse Resp B/P (MAP) Pulse Ox O2 Delivery O2 Flow Rate FiO2 03/05/17 10:00 102 03/05/17 09:10 17 03/05/17 08:00 98.6 101 17 100/52 (68) 98 03/05/17 08:00 101 03/05/17 06:00 101 03/05/17 04:00 102 03/05/17 04:00 98.6 102 15 96/53 (67) 98 03/05/17 02:00 106 03/05/17 00:00 104 03/05/17 00:00 98.4 104 16 97/55 (69) 97 03/04/17 22:12 97 Nasal Cannula 4.00 03/04/17 22:00 113 03/04/17 20:00 109 03/04/17 20:00 98.5 109 15 91/45 (60) 98 03/04/17 18:00 107 03/04/17 16:00 114 03/04/17 16:00 98.9 114 18 98/54 (69) 98 03/04/17 14:00 107 Intake & Output 03/05/17 03/05/17 07:00 19:00 Intake Total 0 ml Output Total 650 ml Balance -650 ml Intake Oral 0 ml Output Urine Total 650 ml # Bowel Movements 0 Physical Exam CONSTITUTIONAL/GENERAL: This is an adequately nourished patient, tachypneic , anxious TUBES/LINES/DRAINS: Peripheral IV bilateral upper extremities, NC 4L SKIN: No jaundice, rashes, or lesions. Pale. No wounds seen anteriorly. Skin temperature appropriate-- distal feet cool rt foot/ankle bluish. CARDIOVASCULAR: Regular rate and rhythm without murmurs, tachycardic rate 100. Pedal pulses faint. Distal feet cool, some bluish discoloration of toes, rt foot. RESPIRATORY/CHEST: Symmetric, mildly labored respirations. Tachypneic respiratory rate 24-26. Decreased air movement throughout, expiratory wheezes GASTROINTESTINAL: Abdomen soft, non-tender, nondistended. No hepato-splenomegaly , or palpable masses. No guarding. Bowel sounds present. NEUROLOGICAL: lethargic, stirs some to exam -- restless/confused. Moves all 4 extremities. PSYCHIATRIC: Mild anxiety/tachypnea- no apparent hallucinations or other psychotic thought process- limited assessment. Diagnostic Tests Laboratory Laboratory Tests Test 03/02/17 12:25 03/02/17 23:56 03/03/17 00:31 03/03/17 09:02 Blood Gas Puncture Site RT RADIAL RT RADIAL Blood Gas Patient Temperature 98.6 98.6 Blood Gas HCO3 12 mmol/L (22-26) 11 mmol/L (22-26) Blood Gas Base Excess -13.5 mmol/L (-2-2) -14.7 mmol/L (-2-2) Blood Gas Oxygen Saturation 97 % (90-100) 97 % (90-100) Arterial Blood pH 7.29 (7.380-7.420) 7.29 (7.380-7.420) Arterial Blood Partial Pressure CO2 26 mmHg (38-42) 23 mmHg (38-42) Arterial Blood Partial Pressure O2 269 mmHg (61-120) 308 mmHg (61-120) Arterial Blood Oxygen Content 13.2 Vol % (12.0-20.0) 20.6 Vol % (12.0-20.0) Arterial Blood Carboxyhemoglobin 0.6 % (0-4) 0.4 % (0-4) Arterial Blood Methemoglobin 1.8 % (0-2) 1.8 % (0-2) Blood Gas Hemoglobin 9.2 G/DL (12.0-16.0) 14.6 G/DL (12.0-16.0) Oxygen Delivery Device NRM NRB MASK Blood Gas Liter Flow 15 L/M 15 L/M Blood Gas Inspired Oxygen 100 % 100 % White Blood Count 0.3 TH/MM3 (4.0-11.0) 0.4 TH/MM3 (4.0-11.0) Red Blood Count 2.73 MIL/MM3 (4.00-5.30) 4.44 MIL/MM3 (4.00-5.30) Hemoglobin 7.5 GM/DL (11.6-15.3) 11.9 GM/DL (11.6-15.3) Hematocrit 22.2 % (35.0-46.0) 36.6 % (35.0-46.0) Mean Corpuscular Volume 81.5 FL (80.0-100.0) 82.6 FL (80.0-100.0) Mean Corpuscular Hemoglobin 27.6 PG (27.0-34.0) 26.9 PG (27.0-34.0) Mean Corpuscular Hemoglobin Concent 33.8 % (32.0-36.0) 32.5 % (32.0-36.0) Red Cell Distribution Width 20.8 % (11.6-17.2) 21.5 % (11.6-17.2) Platelet Count 10 TH/MM3 (150-450) 21 TH/MM3 (150-450) Mean Platelet Volume 9.2 FL (7.0-11.0) 8.3 FL (7.0-11.0) CBC Comment AUTO DIFF AUTO DIFF Differential Total Cells Counted 50 50 Neutrophils % (Manual) 48 % (16-70) 26 % (16-70) Band Neutrophils % 4 % (0-6) 2 % (0-6) Lymphocytes % 40 % (9-44) 68 % (9-44) Monocytes % 2 % (0-8) 2 % (0-8) Eosinophils % 2 % (0-4) Neutrophils # (Manual) 0.2 TH/MM3 (1.8-7.7) 0.1 TH/MM3 (1.8-7.7) Metamyelocytes 4 % (0-1) 2 % (0-1) Nucleated Red Blood Cells 10 /100 WBC (0-0) Differential Comment FINAL DIFF MANUAL FINAL DIFF MANUAL Platelet Estimate RARE (NORMAL) LOW (NORMAL) Platelet Morphology Comment NORMAL (NORMAL) NORMAL (NORMAL) Spherocytes OCC (NORMAL) Keratocytes OCC (NORMAL) Blood Urea Nitrogen 53 MG/DL (7-18) 60 MG/DL (7-18) Creatinine 2.34 MG/DL (0.50-1.00) 2.50 MG/DL (0.50-1.00) Random Glucose 81 MG/DL (74-106) 85 MG/DL (74-106) Total Protein 5.0 GM/DL (6.4-8.2) 5.7 GM/DL (6.4-8.2) Albumin 1.3 GM/DL (3.4-5.0) Calcium Level 5.3 MG/DL (8.5-10.1) 5.8 MG/DL (8.5-10.1) Alkaline Phosphatase 110 U/L (45-117) Aspartate Amino Transf (AST/SGOT) 72 U/L (15-37) Alanine Aminotransferase (ALT/SGPT) 54 U/L (10-53) Total Bilirubin 0.4 MG/DL (0.2-1.0) Sodium Level 144 MEQ/L (136-145) 144 MEQ/L (136-145) Potassium Level 4.1 MEQ/L (3.5-5.1) 4.0 MEQ/L (3.5-5.1) Chloride Level 119 MEQ/L (98-107) 119 MEQ/L (98-107) Carbon Dioxide Level 12.8 MEQ/L (21.0-32.0) 12.2 MEQ/L (21.0-32.0) Anion Gap 12 MEQ/L (5-15) 13 MEQ/L (5-15) Estimat Glomerular Filtration Rate 21 ML/MIN (>89) 19 ML/MIN (>89) Protein Corrected Calcium 6.1 MG/DL (8.5-10.1) 6.4 MG/DL (8.5-10.1) [place] Cells 1+ (NORMAL) Acanthocytes OCC (NORMAL) Test 03/03/17 14:02 03/03/17 17:30 03/04/17 05:11 Prothrombin Time 14.4 SEC (9.8-11.6) Prothromb Time International Ratio 1.3 RATIO Fibrinogen 684 mg/dL (227-377) Urine Color YELLOW (YELLW/STRAW) Urine Turbidity HAZY (CLEAR) Urine pH 5.0 (5.0-8.5) Urine Specific [place] 1.012 (1.002-1.035) Urine Protein 30 mg/dL (NEG-TRACE) Urine Glucose (UA) NEG mg/dL (NEG) Urine Ketones NEG mg/dL (NEG) Urine Occult Blood MOD (NEG) Urine Nitrite NEG (NEG) Urine Bilirubin NEG (NEG) Urine Urobilinogen LESS THAN 2.0 MG/DL (LESS Urine Leukocyte Esterase NEG (NEG) Urine RBC 1 /hpf (0-3) Urine WBC 4 /hpf (0-5) Urine Squamous Epithelial Cells <1 /hpf (0-5) Urine Amorphous Sediment RARE Urine Bacteria OCC /hpf (NONE) Microscopic Urinalysis Comment CATH-CULTURE IND White Blood Count 0.2 TH/MM3 (4.0-11.0) Red Blood Count 2.46 MIL/MM3 (4.00-5.30) Hemoglobin 6.6 GM/DL (11.6-15.3) Hematocrit 19.7 % (35.0-46.0) Mean Corpuscular Volume 79.8 FL (80.0-100.0) Mean Corpuscular Hemoglobin 26.8 PG (27.0-34.0) Mean Corpuscular Hemoglobin Concent 33.5 % (32.0-36.0) Red Cell Distribution Width 21.1 % (11.6-17.2) Platelet Count 6 TH/MM3 (150-450) Mean Platelet Volume 8.8 FL (7.0-11.0) Blood Urea Nitrogen 73 MG/DL (7-18) Creatinine 2.75 MG/DL (0.50-1.00) Random Glucose 99 MG/DL (74-106) Total Protein 5.0 GM/DL (6.4-8.2) Calcium Level 5.5 MG/DL (8.5-10.1) Sodium Level 146 MEQ/L (136-145) Potassium Level 3.9 MEQ/L (3.5-5.1) Chloride Level 121 MEQ/L (98-107) Carbon Dioxide Level 11.4 MEQ/L (21.0-32.0) Anion Gap 14 MEQ/L (5-15) Estimat Glomerular Filtration Rate 17 ML/MIN (>89) Protein Corrected Calcium 6.4 MG/DL (8.5-10.1) Random Vancomycin Level 13.5 COMMENT Result Diagram: 03/04/1711 03/04/17 0511 Microbiology Microbiology Date/Time Source Procedure Growth Status 03/04/17 05:11 Blood Peripheral Aerobic Blood Culture - Preliminary NO GROWTH IN 1 DAY Resulted 03/04/17 05:11 Blood Peripheral Anaerobic Blood Culture - Preliminary NO GROWTH IN 1 DAY Resulted 03/03/17 19:41 Blood Other Aerobic Blood Culture - Preliminary NO GROWTH IN 2 DAYS Resulted 03/03/17 19:41 Blood Other Anaerobic Blood Culture - Preliminary NO GROWTH IN 2 DAYS Resulted 03/03/17 17:30 Urine Catheterized Urine Urine Culture - Final NO GROWTH IN 48 HOURS. Complete Assessment and Plan Disease Oriented Problem List: (1) Lung mass (2) Neutropenia (3) Severe sepsis (4) Pneumonia (5) FH: cancer of respiratory and intrathoracic organs Symptom Scale: (1) Dyspnea (2) Anxiety (3) Pain Pertinent Non-Medical Issues Psychosocial: to her 36 years. 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 Partially from [place] has lived in [place] for about 4 years, moved here for nursing home. Has 3 children who do not live in this area. Spiritual:No particular affiliation, Does not want carton catcher visits Legal:Patient oriented and appears capacitated and able to make decisions. Given fluctuating oxygenation status decision-making should be supported by appropriate legal decision maker and/or family. They indicate is designated HCS. We do not have copies of advanced directive this time. Per [place] statutes spouse would be appropriate legal proxy. Ethical issues impacting care: Important Contacts Carlos Hilton [phone] . Prognosis this pt was admitted for AMS, pneumonia , neutropenia. She has underlying diagnosis of lung cancer, though exact staging is not known. Apparently is advanced, metastatic to brain, Tspine s/p radiation, has undergone 2 chemotherapy treatments. Currently in respiratory distress, high risk for further decompensation and . Appropriate for hospice if goals compatible. . Code Status: No Code Plan * Legal decision maker:Patient oriented and appears capacitated and able to make decisions. Given fluctuating oxygenation status decision-making should be supported by appropriate legal decision maker and/or family. They indicate is designated HCS. We do not have copies of advanced directive this time. Per [place] statutes spouse would be appropriate legal proxy. * Goals: Comfort oriented. Patient during prior palliative interaction very clearly indicates desire for DNR, no intubation with critical care, RN, palliative, patient present. Pt today anxious, confused - son and brother at bedside indicate they are awaiting hospice/comfort measures only. due to arrive from home shortly , will meet further w him around 1pm when he arrives. Order for hospice entered , call to hospice admissions. * CODE STATUS: DNR * SYMPTOMS: --Dyspnea- recent lung cancer diagnosis, s/p chemo x2, + pneumonia, neutropenic- on NRB mask, + tachypneic. Orders for morphine, ativan now x1, as well as ongoing PRN for dyspnea, comfort. Pt +family requested hospice consultation once additional family had arrived. family now present hospice ordered 03/05. will cont to evaluate requirements/effectiveness while in hospital setting, adjust if indicated -- anxiety- anxiety associated with shortness of breath,advanced lung cancer. prn ativan ordered, using about every 2-3 hours. Hospice consulted . --Pain- some chronic pain to RLE since recent CV stenting procedure. used prn morphine IR PO at home a few times per day, well controlled. has prn morphine for dyspnea, pain. using about every 2-3 hrs, hospice consulted. will cont to evaluate requirements/effectiveness while in hospital setting. * Palliative care will continue to follow during hospital course as condition evolves, to assist patient/decision-maker with understanding of medical conditions, weighing benefits/burdens of treatment options, for clarification of goals of treatment. Additionally will assist with any symptoms of palliative concern . Time Spent Total Floor Time (mins): 40 (d/w RN, family meeting , hospice admissions, attending) Attestation To help prompt me to consider important information that might be impacting today's encounter and assessment, information from prior notes written by myself or my colleagues may have been "brought forward" into today's note. My signature on this note, however, is an attestation that I personally performed the exam, history, and/or decision-making noted today, and, unless otherwise indicated, the interactions with patient, family, and staff as well as the review of records all occurred today. I also attest that the listed assessment and stated plan reflect my best clinical judgment today based on the combination of historical information, prior notes, and today's exam/ interactions. When time spent is documented, it refers only to time spent today by the signer, or if indicated, combined time spent today by collaborating physician/nurse practitioner. Coral Alejandro Mar 05, 2017 12:40
[2017-03-05] MEDS ORDERED: LEVOFLOXACIN 500 MG PREMIX INJ 100 ML IV SCH (14:00)
--- NOTE | 2017-03-05 14:39 | PD.ONC.PN ---
Subjective Subjective Remarks Afebrile overnight. Patient resting in bed. Multiple family members at bedside. Objective Data Date Time Temp Pulse Resp B/P (MAP) Pulse Ox O2 Delivery O2 Flow Rate FiO2 03/05/17 13:23 22 03/05/17 12:00 112 03/05/17 12:00 99.3 112 22 94/49 (64) 98 03/05/17 10:00 102 03/05/17 08:00 98.6 101 17 100/52 (68) 98 03/05/17 08:00 101 03/05/17 06:00 101 03/05/17 04:00 102 03/05/17 04:00 98.6 102 15 96/53 (67) 98 03/05/17 02:00 106 03/05/17 00:00 104 03/05/17 00:00 98.4 104 16 97/55 (69) 97 03/04/17 22:12 97 Nasal Cannula 4.00 03/04/17 22:00 113 03/04/17 20:00 109 03/04/17 20:00 98.5 109 15 91/45 (60) 98 03/04/17 18:00 107 03/04/17 16:00 114 03/04/17 16:00 98.9 114 18 98/54 (69) 98 03/05/17 03/05/17 03/05/17 07:00 15:00 23:00 Intake Total 0 ml Output Total 650 ml Balance -650 ml Result Diagram: 03/04/17 0511 03/04/17 0511 Culture Results Microbiology Date/Time Source Procedure Growth Status 03/04/17 05:11 Blood Peripheral Aerobic Blood Culture - Preliminary NO GROWTH IN 1 DAY Resulted 03/04/17 05:11 Blood Peripheral Anaerobic Blood Culture - Preliminary NO GROWTH IN 1 DAY Resulted 03/03/17 19:41 Blood Other Aerobic Blood Culture - Preliminary NO GROWTH IN 2 DAYS Resulted 03/03/17 19:41 Blood Other Anaerobic Blood Culture - Preliminary NO GROWTH IN 2 DAYS Resulted 03/03/17 17:30 Urine Catheterized Urine Urine Culture - Final NO GROWTH IN 48 HOURS. Complete Administered Medications Medications (Trade) Dose Ordered Sig/Lisa Route PRN Reason Start Time Stop Time Status Last Admin Dose Admin Albuterol/ Ipratropium (Duoneb Neb) 1 ampule Q6HR NEB INH 03/02/17 10:00 03/03/17 19:49 Ondansetron HCl (Zofran Inj) 4 mg Q6H PRN IV PUSH NAUSEA OR VOMITING 03/02/17 05:45 03/02/17 22:31 Chlorhexidine Gluconate (Chlorhexidine 2% Cloth) 3 pack Taper DAILY@04 TOP 03/03/17 04:00 02/27/18 03:59 03/04/17 04:00 Acetaminophen 65 ml @ 400 mls/hr ONCE PRN IV TRANSFUSION 03/03/17 00:00 03/08/17 00:00 03/03/17 02:46 Lorazepam (Ativan Inj) 0.5 mg Q2H PRN IV PUSH ANXIETY 03/03/17 00:30 03/05/17 12:28 Morphine Sulfate (Morphine Inj) 2 mg Q2H PRN IV PUSH DYSPNEA 03/03/17 00:30 03/05/17 12:30 Objective Remarks GENERAL: chronically ill appearing female supine in bed sleeping. SKIN: Warm and dry. HEAD: Normocephalic. EYES: No injection or drainage. NECK: Supple, trachea midline. CARDIOVASCULAR: Regular rate and rhythm RESPIRATORY: anterior casey with scattered rhonchi. GASTROINTESTINAL: Abdomen soft, non-tender, nondistended. EXTREMITIES: No cyanosis Assessment/Plan Assessment 62 y/o female with stage 4 lung cancer with mets to the brain admitted for dyspnea, confusion Plan 1. patient's reports he has chosen hospice. Wants comfort measures only. Emotional support provided. He reports he has no questions and is waiting to speak with hospice. Attending Statement The exam, history, and the medical decision-making described in the above note were completed with the assistance of the mid-level provider. I reviewed and agree with the findings presented. I attest that I had a [id number] encounter with the patient on the same day, and personally performed and documented my assessment and findings in the medical record. Nicki Quintero Mar 05, 2017 14:39 Tomasz Cole MD Mar 05, 2017 20:48
== END 2017-03-05 17:30 | disposition hospice, inpatient (51) | DRG 871 ==
LOC: NEPC 03:24 → NEDA 05:48 → HIME 11:15
PROVIDERS: ADMIT Internal Medicine Critical Care Medicine; ATTEND Family Medicine
PROC: 30233R1 Transfusion of Nonautologous Platelets into Peripheral Vein, Percutaneous Approach (ICD-10-PCS; principal; 2017-03-03)
DX: A41.50 Gram-negative sepsis, unspecified (principal); J18.9 Pneumonia, unspecified organism; J96.90 Respiratory failure, unspecified, unspecified whether with hypoxia or hypercapnia; R65.21 Severe sepsis with septic shock; G93.40 Encephalopathy, unspecified; D61.810 Antineoplastic chemotherapy induced pancytopenia; Z94.81 Bone marrow transplant status; N17.9 Acute kidney failure, unspecified; C79.31 Secondary malignant neoplasm of brain; E87.2 Acidosis; E46 Unspecified protein-calorie malnutrition; C34.90 Malignant neoplasm of unspecified part of unspecified bronchus or lung; J44.0 Chronic obstructive pulmonary disease with (acute) lower respiratory infection; E83.51 Hypocalcemia; E86.0 Dehydration; G89.3 Neoplasm related pain (acute) (chronic); Z51.5 Encounter for palliative care; T45.1X5A Adverse effect of antineoplastic and immunosuppressive drugs, initial encounter; D70.3 Neutropenia due to infection; E88.09 Other disorders of plasma-protein metabolism, not elsewhere classified; R33.9 Retention of urine, unspecified; Z66 Do not resuscitate; D64.81 Anemia due to antineoplastic chemotherapy; R53.1 Weakness; M79.605 Pain in left leg; M79.604 Pain in right leg; D70.1 Agranulocytosis secondary to cancer chemotherapy; Z87.891 Personal history of nicotine dependence; Z88.5 Allergy status to narcotic agent
CPT/HCPCS: 36430; 36600; 70450; 71010; 80048; 80053; 80202; 81001; 82550; 82805; 82948; 83605; 84155; 84484; 85007; 85027; 85384; 85610; 85730; 87040; 87086; 87205; 87641; 93005; 94640; 94664; 94667; 96361; 96365; 96367; J0131; J0610; J0692; J1442; J1956; J2060; J2185; J2270; J2405; J3370; J7030; J7040; P9035